=== PATIENT | male | born 1965 | race Caucasian/White ===

== ENCOUNTER 2017-12-06 14:06 | Emergency (ER) | payer OTHER, SELFPAY ==
[2017-12-06 14:12] VITALS: BP 139/75; PULSE 84; RESP 16; TEMP 36.6; O2SAT 95
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
[2017-12-06] MEDS: Ibuprofen 800 MG TAB PO (14:35)
[2017-12-06 15:38] VITALS: BP 123/84; PULSE 72; RESP 16; O2SAT 95
[2017-12-06 15:56] VITALS: BP 123/84; PULSE 72; RESP 16; TEMP 36.6; O2SAT 95
== END 2017-12-06 15:55 | disposition home or self-care (01) ==
PROVIDERS: Emergency Provider Nurse Practitioner Family; PCP Nurse Practitioner Family
DX: S16.1XXA Strain of muscle, fascia and tendon at neck level, initial encounter (principal); S39.012A Strain of muscle, fascia and tendon of lower back, initial encounter; V43.52XA Car driver injured in collision with other type car in traffic accident, initial encounter; Z04.1 Encounter for examination and observation following transport accident; I10 Essential (primary) hypertension
CPT/HCPCS: 99284; 72040; 72072

== ENCOUNTER 2018-02-26 10:52 | Day surgery (SDC) | payer OTHER, SELFPAY ==
[2018-02-26 11:10] VITALS: BP 150/102; PULSE 87; RESP 18; TEMP 36.4; O2SAT 96
[2018-02-26] MEDS: Lactated Ringers 1,000 ML 30 ML IV (11:11)
--- NOTE | 2018-02-26 14:13 | HPE_ITS ---
Date of service: 02/26/18 Time of Service: 14:04 Assessment and Plan (1) H/O adenomatous polyp of colon: Current visit: Yes Status: Acute Reviewed the colonoscopy procedure with Mr. Agudelo, and discussed the risks of the procedure with him. All his questions were answered to his satisfaction. Consent was obtained to proceed with colonoscopy. History of Present Illness Chief Complaint: Personal history of colon polyps Narrative: 52-year-old male presents for colorectal cancer screening with personal history of colon polyps. He has been asymptomatic since his last colonoscopy in 2014. His last colonoscopy was positive for a tubular adenoma. He has no family history of colorectal cancer. Review of Systems Constitutional Denies fatigue, Denies fever(s), Denies malaise, Denies night sweats, Denies weakness and Denies weight loss Eyes Denies blurry vision, Denies diplopia and Reports loss of vision ENT Denies dysphagia, Denies vertigo, Denies dizziness, Denies hoarseness, Denies epistaxis, Denies tinnitus and Denies sore throat Cardiovascular Denies chest pain, Denies irregular heart rhythm, Denies lightheadedness, Denies radiating jaw, neck or arm pain and Denies dyspnea on exertion Respiratory Denies chest congestion, Denies cough, Denies dyspnea on exertion, Denies stridor and Denies wheezing Gastrointestinal Denies abdominal pain, Denies melena, Denies constipation, Denies dysphagia, Denies early satiety, Denies nausea and Denies vomiting Neurologic Denies vertigo, Denies dizziness, Reports loss of vision and Denies weakness Endocrine Denies fatigue Allergic/Immunologic Denies wheezing PFSH Social History Smoking/Tobacco Use Status: Current every day alcohol intake: current alcohol intake frequency: 3 or more drinks per day Alcohol type: beer substance use type: does not use Meds Home Medications Medication Instructions Recorded Confirmed Type esomeprazole magnesium [Nexium 20 mg PO DAILY 05/11/14 02/26/18 History 24HR] [id number] serr 1 ea PO DAILY 05/11/14 02/26/18 History [Osteo Bi-Flex (5-Loxin)] multivit,mins no.21-folic acid 1 mg PO DAILY 05/11/14 02/26/18 History [Supervite (EC)] aspirin 81 mg PO DAILY tab-cap 05/27/14 02/26/18 History coenzyme Q10 [Co Q-10] 10 mg PO DAILY 05/23/16 02/26/18 History omega-3 fatty acids-fish oil 2 ea PO DAILY 05/23/16 02/26/18 History biotin 800 mcg PO DAILY 06/27/16 02/26/18 History hydrochlorothiazide 25 mg PO DAILY #90 tab-cap 03/20/17 02/26/18 Rx lisinopril 10 mg PO DAILY #90 tab-cap 06/28/17 02/26/18 Rx Panax, Ecuadorean Ginsg/B12/Royl 1 ea PO DAILY 10/11/17 02/26/18 History [Ginseng Complex Capsule] cyclobenzaprine 10 mg tablet 10 mg PO TID PRN #20 tab 12/16/17 02/26/18 Rx ibuprofen 600 mg tablet 600 mg PO TID PRN #20 tab 12/16/17 02/26/18 Rx atorvastatin 40 mg tablet 40 mg PO DAILY #90 tab-cap 01/06/18 02/26/18 Rx potassium 99 mg PO HS 02/21/18 02/26/18 History Allergies Allergy/AdvReac Type Severity Reaction Status Date / Time poison pranav extract Allergy Unknown Unverified 02/26/18 11:04 Yellow jacket Allergy Unknown Sometimes Uncoded 02/26/18 11:04 bothers and sometimes doesn't Exam Const General: cooperative and comfortable Nutritional Appearance: average body habitus Orientation: alert, awake and oriented x3 HENMT Head: normal to inspection Ears: hearing grossly normal bilaterally General nose exam: external nose normal Face and sinus: normal facial exam Mouth: oral mucosae normal Eyes General: appearance normal, both eyes and all related structures Periorbital: periorbital findings normal Conjunctivae: conjunctivae normal Sclera: sclerae normal Pupils: PERRL EOM: EOM intact bilaterally Neck Neck: normal visual inspection, trachea midline and supple Chest Chest: normal inspection of the chest Resp Effort & Inspection: normal respiratory effort and no audible wheezes Auscultation: clear to auscultation bilaterally Cardio Rate: regular rate Rhythm: regular rhythm Heart Sounds: S1 normal and S2 normal GI Inspection: normal to inspection Palpation: soft, no hernias and nontender Skin General skin exam: no rashes or lesions noted Neuro General: moves all extremities, no focal motor deficits and CN's II-XI intact bilaterally Extrem General: normal to inspection, full ROM, normal capillary refill and no clubbing , cyanosis or edema Psych Appearance: grossly normal Affect: normal affect Attitude: cooperative Judgment: judgment good Results Last Vital Signs Temp 36.4 C L 02/26/18 11:10 Pulse 87 02/26/18 11:10 Resp 18 02/26/18 11:10 BP 150/102 H 02/26/18 11:10 Pulse Ox 96 02/26/18 11:10
--- NOTE | 2018-02-26 15:01 | W.COLOREPORT ---
Date of service: 02/26/18 Time of Service: 14:00 Colonoscopy Report Date of procedure: 02/26/18 Pre-op diagnosis general: Personal history of colon polyps Post-op diagnosis procedure note: other (Normal Colon to the cecum) Procedure: Colonoscopy to the Cecum Surgeon: Nawaf Mariscal Anesthesia proc note operative: MAC (Doug Redding REAMING MACHINE OPERATOR FOR PLASTIC: ASA 2 Mallampati class II) Estimated blood loss (mL): 0 Pathology: none sent Complications: None Disposition: same day Indications: 52-year-old gentleman presenting for colorectal cancer screening with a personal history of colon polyps. He has been asymptomatic since last colonoscopy, which she was found to have a tubular adenoma. He has no family history colorectal cancer. The procedure has been reviewed with him, and the risks of the procedure of been discussed. All his questions been answered to his satisfaction. Consents been obtained to proceed with colonoscopy. Prep: Miralax/Dulcolax (Prep quality good) Findings: In examining the colon from cecum to anus, no abnormalities were noted. Procedure Description: The patient was seen in the day surgery waiting area. His identification was confirmed, and procedure checked. He was then brought to the procedure room. Monitoring for telemetry, blood pressure, oxygen saturation, and end tidal CO2 monitoring were applied. An appropriate time out was performed to confirm, identification, allergies, medication, procedure, was performed. Sedation was titrated for affect by the REAMING MACHINE OPERATOR FOR PLASTIC; Once adequate sedation was achieved, I performed a inspection of the external perineum, and a digitial rectal examination. No significant external abnormalities were noted. On digital rectal examination, there was no blood, no masses, good rectal tone, and a normal prostate. I advanced the colonoscope from the anus to the cecum under direct visualization. The cecum was identified by the ileal-cecal valve, and the appendiceal orifice. The scope was then withdrawn in circumferential manner from the cecum to the rectum. No abnormalites were noted in the colon. The scope was then withdrawn into the rectum, and retroflexed. No abnormalities were noted of the rectum or anorectal junction. The scope was then withdrawn, terminating the procedure. There were no complications during the procedure, and the patient tolerated the procedure well. He was returned to the day surgery recovery area in good condition. Plan: Will continue with routine screening for colorectal cancer according to current consensus guidelines, which is currently 10 years.
[2018-02-26 15:05] VITALS: BP 139/95; PULSE 65; RESP 20; TEMP 37; O2SAT 96
--- NOTE | 2018-02-26 15:05 | COLE_ITS ---
Date of service: 02/26/18 Time of Service: 14:00 Colonoscopy Report Date of procedure: 02/26/18 Pre-op diagnosis general: Personal history of colon polyps Post-op diagnosis procedure note: other (Normal Colon to the cecum) Procedure: Colonoscopy to the Cecum Surgeon: Nawaf Mariscal Anesthesia proc note operative: MAC (Doug Redding REPLANTING MACHINE CREWMAN: ASA 2 Mallampati class II) Estimated blood loss (mL): 0 Pathology: none sent Complications: None Disposition: same day Indications: 52-year-old gentleman presenting for colorectal cancer screening with a personal history of colon polyps. He has been asymptomatic since last colonoscopy, which she was found to have a tubular adenoma. He has no family history colorectal cancer. The procedure has been reviewed with him, and the risks of the procedure of been discussed. All his questions been answered to his satisfaction. Consents been obtained to proceed with colonoscopy. Prep: Miralax/Dulcolax (Prep quality good) Findings: In examining the colon from cecum to anus, no abnormalities were noted. Procedure Description: The patient was seen in the day surgery waiting area. His identification was confirmed, and procedure checked. He was then brought to the procedure room. Monitoring for telemetry, blood pressure, oxygen saturation, and end tidal CO2 monitoring were applied. An appropriate time out was performed to confirm, identification, allergies, medication, procedure, was performed. Sedation was titrated for affect by the REPLANTING MACHINE CREWMAN; Once adequate sedation was achieved, I performed a inspection of the external perineum, and a digitial rectal examination. No significant external abnormalities were noted. On digital rectal examination, there was no blood, no masses, good rectal tone, and a normal prostate. I advanced the colonoscope from the anus to the cecum under direct visualization. The cecum was identified by the ileal-cecal valve, and the appendiceal orifice. The scope was then withdrawn in circumferential manner from the cecum to the rectum. No abnormalites were noted in the colon. The scope was then withdrawn into the rectum, and retroflexed. No abnormalities were noted of the rectum or anorectal junction. The scope was then withdrawn, terminating the procedure. There were no complications during the procedure, and the patient tolerated the procedure well. He was returned to the day surgery recovery area in good condition. Plan: Will continue with routine screening for colorectal cancer according to current consensus guidelines, which is currently 10 years.
--- NOTE | 2018-02-26 16:37 | W.PM.DSUDISC ---
Discharge Plan Disposition Patient Disposition: HOME Condition: Good Discharge Details Reason For Visit: SCREENING Attending Provider: Nawaf Mariscal Primary Care Provider: Wendy Dias Home Meds and New Rx's Prescriptions: Continue cyclobenzaprine 10 mg tablet 10 mg PO TID PRN (Reason: muscle spasm) Qty: 20 RF: 0 ibuprofen [IBU] 600 mg tablet 600 mg PO TID PRN (Reason: pain) Qty: 20 RF: 0 multivit,mins no.21-folic acid [Supervite (EC)] 1 MG tablet,delayed release (DR/EC) 1 mg PO DAILY RF: 0 hmbojvwltqk-A9-Gemdltsyh serr [Osteo Bi-Flex (5-Loxin)] 1 EACH tablet 1 ea PO DAILY RF: 0 esomeprazole magnesium [Nexium 24HR] 20 MG capsule,delayed release(DR/EC) 20 mg PO DAILY RF: 0 aspirin 81 MG tablet,delayed release (DR/EC) 81 mg PO DAILY RF: 0 coenzyme Q10 [Co Q-10] 10 MG capsule 10 mg PO DAILY RF: 0 omega-3 fatty acids-fish oil 1 EACH capsule 2 ea PO DAILY RF: 0 biotin 800 MCG tablet 800 mcg PO DAILY RF: 0 hydrochlorothiazide 25 MG tablet 25 mg PO DAILY Qty: 90 RF: 3 lisinopril 10 MG tablet 10 mg PO DAILY Qty: 90 RF: 3 Panax, English Ginsg/B12/Royl [Ginseng Complex Capsule] 1 EACH capsule 1 ea PO DAILY RF: 0 atorvastatin 40 mg tablet 40 mg PO DAILY Qty: 90 RF: 3 potassium 99 mg Tablet 99 mg PO HS RF: 0 Discharge Instructions Instructions: Colonoscopy (DC) Stand Alone Forms: Colonoscopy Post Instructions, Sherin Barbour (DSU) Activity:: Activity as Tolerated Diet:: As Tolerated Discharge Orders Discharge Orders: Discharge Order (Routine); Ordered 02/26/18 Ordered By: Nawaf Mariscal Discharge Data Discharge Date/Time-TO BE ENTERED AT DEPARTURE: 02/26/18 15:20 DS: Diagnosis Discharge Diagnosis (1) H/O adenomatous polyp of colon: Status: Acute Asessment and Plan: Colonoscopy performed: Colonoscopy Report Date of procedure: 02/26/18 Pre-op diagnosis general: Personal history of colon polyps Post-op diagnosis procedure note: other (Normal Colon to the cecum) Procedure: Colonoscopy to the Cecum Surgeon: Nawaf Mariscal Anesthesia proc note operative: MAC (Doug Redding BUSINESS INTEGRATION ANALYST: ASA 2 Mallampati class II) Estimated blood loss (mL): 0 Pathology: none sent Complications: None Disposition: same day Indications: 52-year-old gentleman presenting for colorectal cancer screening with a personal history of colon polyps. He has been asymptomatic since last colonoscopy, which she was found to have a tubular adenoma. He has no family history colorectal cancer. The procedure has been reviewed with him, and the risks of the procedure of been discussed. All his questions been answered to his satisfaction. Consents been obtained to proceed with colonoscopy. Prep: Miralax/Dulcolax (Prep quality good) Findings: In examining the colon from cecum to anus, no abnormalities were noted. Procedure Description: The patient was seen in the day surgery waiting area. His identification was confirmed, and procedure checked. He was then brought to the procedure room. Monitoring for telemetry, blood pressure, oxygen saturation, and end tidal CO2 monitoring were applied. An appropriate time out was performed to confirm, identification, allergies, medication, procedure, was performed. Sedation was titrated for affect by the BUSINESS INTEGRATION ANALYST; Once adequate sedation was achieved, I performed a inspection of the external perineum, and a digitial rectal examination. No significant external abnormalities were noted. On digital rectal examination, there was no blood, no masses, good rectal tone, and a normal prostate. I advanced the colonoscope from the anus to the cecum under direct visualization. The cecum was identified by the ileal-cecal valve, and the appendiceal orifice. The scope was then withdrawn in circumferential manner from the cecum to the rectum. No abnormalites were noted in the colon. The scope was then withdrawn into the rectum, and retroflexed. No abnormalities were noted of the rectum or anorectal junction. The scope was then withdrawn, terminating the procedure. There were no complications during the procedure, and the patient tolerated the procedure well. He was returned to the day surgery recovery area in good condition. Plan: Will continue with routine screening for colorectal cancer according to current consensus guidelines, which is currently 10 years.
--- NOTE | 2018-02-26 16:41 | PDOC.DSDIS_ITS ---
Discharge Plan Disposition Patient Disposition: HOME Condition: Good Discharge Details Reason For Visit: SCREENING Attending Provider: Nawaf Mariscal Primary Care Provider: Wendy Dias Home Meds and New Rx's Prescriptions: Continue cyclobenzaprine 10 mg tablet 10 mg PO TID PRN (Reason: muscle spasm) Qty: 20 RF: 0 ibuprofen [IBU] 600 mg tablet 600 mg PO TID PRN (Reason: pain) Qty: 20 RF: 0 multivit,mins no.21-folic acid [Supervite (EC)] 1 MG tablet,delayed release ( DR/EC) 1 mg PO DAILY RF: 0 fsuwezuwosn-V1-Jmszcqlkh serr [Osteo Bi-Flex (5-Loxin)] 1 EACH tablet 1 ea PO DAILY RF: 0 esomeprazole magnesium [Nexium 24HR] 20 MG capsule,delayed release(DR/EC) 20 mg PO DAILY RF: 0 aspirin 81 MG tablet,delayed release (DR/EC) 81 mg PO DAILY RF: 0 coenzyme Q10 [Co Q-10] 10 MG capsule 10 mg PO DAILY RF: 0 omega-3 fatty acids-fish oil 1 EACH capsule 2 ea PO DAILY RF: 0 biotin 800 MCG tablet 800 mcg PO DAILY RF: 0 hydrochlorothiazide 25 MG tablet 25 mg PO DAILY Qty: 90 RF: 3 lisinopril 10 MG tablet 10 mg PO DAILY Qty: 90 RF: 3 Panax, [place]ag[place] Ginsg/B12/Royl [Ginseng Complex Capsule] 1 EACH capsule 1 ea PO DAILY RF: 0 atorvastatin 40 mg tablet 40 mg PO DAILY Qty: 90 RF: 3 potassium 99 mg Tablet 99 mg PO HS RF: 0 Discharge Instructions Instructions: Colonoscopy (DC) Stand Alone Forms: Colonoscopy Post Instructions, Sherin Barbour ([facility]) Activity:: Activity as Tolerated Diet:: As Tolerated Discharge Orders Discharge Orders: Discharge Order (Routine); Ordered 02/26/18 Ordered By: Nawaf Mariscal Discharge Data Discharge Date/Time-TO BE ENTERED AT DEPARTURE: 02/26/18 15:20 DS: Diagnosis Discharge Diagnosis (1) H/O adenomatous polyp of colon: Status: Acute Asessment and Plan: Colonoscopy performed: Colonoscopy Report Date of procedure: 02/26/18 Pre-op diagnosis general: Personal history of colon polyps Post-op diagnosis procedure note: other (Normal Colon to the cecum) Procedure: Colonoscopy to the Cecum Surgeon: Nawaf Mariscal Anesthesia proc note operative: MAC (Doug Redding APPLE PICKER: ASA 2 Mallampati class II) Estimated blood loss (mL): 0 Pathology: none sent Complications: None Disposition: same day Indications: 52-year-old gentleman presenting for colorectal cancer screening with a personal history of colon polyps. He has been asymptomatic since last colonoscopy, which she was found to have a tubular adenoma. He has no family history colorectal cancer. The procedure has been reviewed with him, and the risks of the procedure of been discussed. All his questions been answered to his satisfaction. Consents been obtained to proceed with colonoscopy. Prep: Miralax/Dulcolax (Prep quality good) Findings: In examining the colon from cecum to anus, no abnormalities were noted. Procedure Description: The patient was seen in the day surgery waiting area. His identification was confirmed, and procedure checked. He was then brought to the procedure room. Monitoring for telemetry, blood pressure, oxygen saturation, and end tidal CO2 monitoring were applied. An appropriate time out was performed to confirm, identification, allergies, medication, procedure, was performed. Sedation was titrated for affect by the APPLE PICKER; Once adequate sedation was achieved, I performed a inspection of the external perineum, and a digitial rectal examination. No significant external abnormalities were noted. On digital rectal examination, there was no blood, no masses, good rectal tone, and a normal prostate. I advanced the colonoscope from the anus to the cecum under direct visualization. The cecum was identified by the ileal-cecal valve, and the appendiceal orifice. The scope was then withdrawn in circumferential manner from the cecum to the rectum. No abnormalites were noted in the colon. The scope was then withdrawn into the rectum, and retroflexed. No abnormalities were noted of the rectum or anorectal junction. The scope was then withdrawn, terminating the procedure. There were no complications during the procedure, and the patient tolerated the procedure well. He was returned to the day surgery recovery area in good condition. Plan: Will continue with routine screening for colorectal cancer according to current consensus guidelines, which is currently 10 years.
== END 2018-02-26 15:20 | disposition home or self-care (01) ==
PROVIDERS: PCP Nurse Practitioner Family; Visit Provider Surgery
PROC: 0DJD8ZZ Inspection of Lower Intestinal Tract, Via Natural or Artificial Opening Endoscopic (ICD-10-PCS; CPT 45378; principal; 2018-02-26 11:00)
DX: Z12.11 Encounter for screening for malignant neoplasm of colon (principal); Z86.010 Personal history of colon polyps; I10 Essential (primary) hypertension; K21.9 Gastro-esophageal reflux disease without esophagitis; F17.210 Nicotine dependence, cigarettes, uncomplicated
CPT/HCPCS: 45378; NC

== ENCOUNTER 2018-04-14 08:27 | Outpatient (CLI) | payer OTHER, SELFPAY ==
[2018-04-14 09:43] LABS: Hemoglobin A1C 6.2 % (4.5-6.2)
[2018-04-14 10:07] LABS: Anion Gap 10.6 mmol/L (3-11); BUN 15 mg/dL (7-18); CO2 25.4 mmol/L (21.0-32.0); CREATININE 0.79 mg/dL (0.70-1.30); Calcium 9.5 mg/dL (8.5-10.1); Chloride 100 mmol/L (98-107); Cholesterol 199 mg/dL (50-200); Glucose 107 mg/dL (70-100); HDL Cholesterol 47 mg/dL (40-60); LDL CHOLESTEROL 125 mg/dL (<100); Potassium 4.1 mmol/L (3.5-5.1); Sodium 136 mmol/L (136-145); Triglyceride 128 mg/dL (30-150)
== END 2018-04-14 08:47 ==
PROVIDERS: PCP Nurse Practitioner Family; Visit Provider Nurse Practitioner Family
DX: I10 Essential (primary) hypertension (principal); R73.01 Impaired fasting glucose; E78.5 Hyperlipidemia, unspecified
CPT/HCPCS: 36415; 80048; 80061; 83721; 83036

== ENCOUNTER 2018-11-04 00:59 | Outpatient (CLI) | payer OTHER, SELFPAY ==
[2018-11-04 10:20] LABS: Abs Immature Grans 0.02 k/cumm (0.0-0.09); Absolute Basophil Count 0.03 k/cumm (0.0-0.2); Absolute Eosinophil Count 0.44 k/cumm (0.0-0.7); Absolute Lymphocyte Count 2.63 k/cumm (1.2-3.4); Absolute Monocyte Count 0.86 k/cumm (0.11-0.7); Absolute Neutrophil Count 5.52 k/cumm (1.2-6.7); Basophils % 0.3; Eosinophils % 4.6; Immature Grans % 0.2; Lymphocytes % 27.7; Mean Corp. HGB Concentration 34.2 g/dL (32.0-36.0); Mean Corpuscular Hemoglobin 32.9 pg (27.0-33.0); Mean Corpuscular Volume 96.2 fL (80-95); Mean Platelet Volume 10.3 fL (8.0-11.0); Monocytes % 9.1; Neutrophils % 58.1; Platelet Count 232 x1000/uL (130-400); RBC 3.95 m/cumm (4.50-6.00); RBC Distribution Width 12.8 % (11.8-14.1)
--- NOTE | 2018-11-04 10:25 | DI.RAD_ITS ---
SYMPTOM/DIAGNOSIS: RT MIDDLE MCP JOINT SWELLING AND PAIN X MONTHS M25.449, M25.549 RIGHT HAND: 11/04 Three views were obtained. There is some narrowing of the cartilaginous joint spaces of the IP joints. Mild hypertrophic spurring noted at multiple sites. Degenerative changes also noted at the first MCP joint with joint space narrowing subchondral sclerosis and mild marginal osteophyte formation. CONCLUSION: Mild degenerative changes as described above.
[2018-11-04 11:36] LABS: Uric Acid 4.6 mg/dL (3.5-7.2)
== END 2018-11-04 01:19 ==
PROVIDERS: PCP Nurse Practitioner Family; Visit Provider Nurse Practitioner Family
DX: M25.541 Pain in joints of right hand (principal); M25.441 Effusion, right hand; M19.041 Primary osteoarthritis, right hand; M18.11 Unilateral primary osteoarthritis of first carpometacarpal joint, right hand
CPT/HCPCS: 36415; 73130; 84550; 85025

== ENCOUNTER 2019-12-22 01:15 | Outpatient (CLI) | payer OTHER, SELFPAY ==
[2019-12-22 09:41] LABS: Abs Immature Grans 0.03 10^3/uL (0.0-0.06); Absolute Basophil Count 0.02 10^3/uL (0.0-0.2); Absolute Eosinophil Count 0.29 10^3/uL (0.0-0.7); Absolute Lymphocyte Count 2.27 10^3/uL (1.2-3.4); Absolute Monocyte Count 0.73 10^3/uL (0.1-0.8); Absolute Neutrophil Count 3.25 10^3/uL (1.2-6.7); Basophils % 0.3; Eosinophils % 4.4; HCT 39.8 % (40.0-50.0); HGB 13.7 g/dL (13.5-17.5); Immature Grans % 0.5; Lymphocytes % 34.4; MCH 32.2 pg (27.0-33.0); MCHC 34.4 % (32.0-36.0); MCV 93.4 fL (80-95); MPV 10.4 fL (8.0-11.0); Monocytes % 11.1; Neutrophils % 49.3; Nucleated RBC 0 %; Platelet Count 237 10^3/uL (130-400); RBC 4.26 10^6/uL (4.36-5.78); RDW 11.9 % (11.8-14.1); RDW-SD 40.9 fL; WBC 6.59 10^3/uL (4.4-10.8)
[2019-12-22 10:10] LABS: Hemoglobin A1C 5.9 % (<5.7)
[2019-12-22 13:44] LABS: Anion Gap 9.7 mmol/L (3-11); BUN 17 mg/dL (7-18); CO2 26.3 mmol/L (21.0-32.0); CREATININE 0.71 mg/dL (0.70-1.30); Calcium 9.3 mg/dL (8.5-10.1); Calculated LDL 116 mg/dL (<100); Chloride 102 mmol/L (98-107); Cholesterol 210 mg/dL (<200); Glucose 110 mg/dL (74-106); HDL Cholesterol 58 mg/dL (40-60); Potassium 4.1 mmol/L (3.5-5.1); Sodium 138 mmol/L (136-145); Triglyceride 181 mg/dL (<150)
== END 2019-12-22 01:35 ==
PROVIDERS: PCP Nurse Practitioner Family; Visit Provider Nurse Practitioner Family
DX: I10 Essential (primary) hypertension (principal); R73.01 Impaired fasting glucose; E78.5 Hyperlipidemia, unspecified; D64.9 Anemia, unspecified
CPT/HCPCS: 36415; 80048; 80061; 83036; 85025

== ENCOUNTER 2020-12-07 00:34 | Outpatient (CLI) | payer OTHER, SELFPAY ==
[2020-12-07 09:44] LABS: HCT 39.3 % (40.0-50.0); HGB 13.6 g/dL (13.5-17.5); MCH 32.8 pg (27.0-33.0); MCHC 34.6 % (32.0-36.0); MCV 94.7 fL (80-95); MPV 10.9 fL (8.0-11.0); Platelet Count 244 10^3/uL (130-400); RBC 4.15 10^6/uL (4.36-5.78); RDW 12.4 % (11.8-14.1); WBC 9.79 10^3/uL (4.4-10.8)
[2020-12-07 10:48] LABS: ALT 36 U/L (16-63); AST 20 U/L (15-37); Alkaline Phosphatase 66 U/L (46-116); Anion Gap 9.7 mmol/L (3-11); BUN 15 mg/dL (7-18); Bilirubin, Total 0.5 mg/dL (0.2-1.0); CO2 28.3 mmol/L (21.0-32.0); CREATININE 0.7 mg/dL (0.70-1.30); Calcium 9.3 mg/dL (8.5-10.1); Calculated LDL 143 mg/dL (<100); Chloride 101 mmol/L (98-107); Cholesterol 215 mg/dL (<200); Glucose 100 mg/dL (74-106); HDL Cholesterol 53 mg/dL (40-60); Potassium 4.3 mmol/L (3.5-5.1); Sodium 139 mmol/L (136-145); Total Protein 7.2 g/dL (6.4-8.2); Triglyceride 95 mg/dL (<150)
== END 2020-12-07 00:35 | disposition home or self-care (01) ==
PROVIDERS: PCP Nurse Practitioner Family; Visit Provider Nurse Practitioner Family
DX: I10 Essential (primary) hypertension (principal); E78.5 Hyperlipidemia, unspecified; R73.01 Impaired fasting glucose; Z51.81 Encounter for therapeutic drug level monitoring
CPT/HCPCS: 36415; 80053; 80061; 85027; 83036

== ENCOUNTER 2021-09-20 15:32 | Outpatient (REF) | payer OTHER, SELFPAY ==
--- NOTE | 2021-09-20 15:30 | PAPNONF_PTH ---
PATIENT: Duarte Agudelo LOC: N U#:[id number] AGE/SX: 56/M ROOM: RE09/20/[address]: Yulissa Elam APRN : 1965 BED: DIS: 09/20/2021 SPEC #: [id number] RECD: 09/21/21 09:36 STATUS: LUZ MARIA REQ #: [id number] DEMARIO: 09/20/21 15:[address]: Yulissa Elam DEPT: [facility] Cytology RECD BY: Denise Ellis ENTERED: 09/21/21 09:38 SP TYPE: PAPRHONDAF MARIBELL DR: Wendy Dias APRN Tissues: 1 - BODY FLUID CYTO(SPUTUM/URINE)[facility] Procedures: BODY FLUID CYTO(URINE/SPUTUM) Comments: [id number] (TOTAL VOLUME = 60 cc) (60 CC CYTOLYT ADDED, 120 CC SPECIMEN IN TWO CONTAINERS)
== END 2021-09-20 15:33 | disposition home or self-care (01) ==
LOC: LBN 15:32
PROVIDERS: PCP Nurse Practitioner Family; Visit Provider Nurse Practitioner
DX: R31.9 Hematuria, unspecified (principal)
CPT/HCPCS: 87086; 88104

== ENCOUNTER 2021-10-05 15:38 | Outpatient (REF) | payer OTHER, SELFPAY ==
[2021-10-05 16:12] LABS: Hemoglobin A1C 5.8 % (<5.7)
[2021-10-05 16:18] LABS: ALT 32 U/L (16-63); AST 20 U/L (15-37); Albumin 4.1 g/dL (3.4-5.0); Alkaline Phosphatase 67 U/L (46-116); Anion Gap 10.5 mmol/L (3-11); BUN 18 mg/dL (7-18); Bilirubin, Total 0.5 mg/dL (0.2-1.0); CO2 26.5 mmol/L (21.0-32.0); CREATININE 0.7 mg/dL (0.70-1.30); Calcium 9.2 mg/dL (8.5-10.1); Calculated LDL 139 mg/dL (<100); Chloride 100 mmol/L (98-107); Cholesterol 209 mg/dL (<200); Glucose 105 mg/dL (74-106); HDL Cholesterol 55 mg/dL (40-60); Potassium 3.8 mmol/L (3.5-5.1); Sodium 137 mmol/L (136-145); Triglyceride 76 mg/dL (<150)
== END 2021-10-05 15:39 | disposition home or self-care (01) ==
LOC: LBN 15:38
PROVIDERS: PCP Nurse Practitioner Family; Visit Provider Nurse Practitioner
DX: I10 Essential (primary) hypertension (principal); R73.01 Impaired fasting glucose; R31.9 Hematuria, unspecified
CPT/HCPCS: 80053; 80061; 83036; 87086

== ENCOUNTER → 2021-10-23 02:55 | Outpatient (CLI) | payer OTHER, SELFPAY ==
--- NOTE | 2021-10-23 07:15 | DI.CT_ITS ---
Exam(s) CT ABDOMEN PELVIS WO/W EXAM: CT ABDOMEN PELVIS WO/W CLINICAL HISTORY: recurrent hematuria, intermittent flank pain,N20.9. TECHNIQUE: Imaging Protocol: Axial computed tomography images with coronal and sagittal reformatted images were created and reviewed CONTRAST MATERIAL: Intravenous: Omnipaque 100cc Oral: None COMPARISON: No exams were available for comparison FINDINGS: VISUALIZED LUNG BASES: No nodules nor pleural effusions evident. ABDOMEN: There is no ascites. LIVER: Multiple tiny hepatic cysts noted all less than 1 cm. No dilatation of intrahepatic ducts. GALLBLADDER/BILIARY: No obvious gallbladder pathology. CBD is not dilated. PANCREAS: No evidence of pancreatic mass nor dilatation of the pancreatic duct. SPLEEN: Spleen is not enlarged. No obvious intrasplenic lesions. Splenic and portal veins are paten t. ADRENALS: There are no significant adrenal masses. KIDNEYS:There is a benign 2 x 1.4 cm cyst in the right kidney and a smaller cyst in the left kidney. No solid renal lesions. Tiny calcification noted in the left kidney which might vascular.. ABDOMINAL AORTA: There is a fusiform infrarenal abdominal aortic aneurysm. Maximum diameter is 2.8 c m. Diameter of the common iliac arteries is upper normal. LYMPH NODES:There is no retroperitoneal nor paraaortic adenopathy. ABDOMINAL WALL: Fat only containing anterior abdominal hernia. There are no inguinal hernias. GI: There is no evidence of bowel obstruction, free air, nor abscess. PELVIS: GI: No evidence of appendicitis.Sigmoid diverticulosis. No evidence of obvious acute diverticulitis. LYMPH NODES: There is no intrapelvic nor inguinal adenopathy. REPRODUCTIVE: Prostate gland size upper normal. URINARY BLADDER: There is an ominous mass in the right side of the urinary bladder which measures 3 x 3 cm and contains some calcification. Highly suspicious for bladder malignancy. This does not obst ruct ipsilateral right the yazmin vesicle junction. OSSEOUS: No significant osseous lesions. IMPRESSION: 1. The main finding here is in the right side of the urinary bladder where there is a 3 centimeter ma ss which is highly suspicious for malignancy. Urology consultation for cystoscopy and biopsy recomme nded 2. There does not appear be obstruction of the urinary tracts at this time. 3. Benign solitary cyst in each kidney, largest measuring 1.4 cm. No solid renal masses. 4. Fusiform infrarenal abdominal aortic aneurysm with maximum diameter 2.8 cm. RADIATION DOSE DELIVERED: 2,366.12mGy.cm Total DLP DATA REPOSITORY: All CT scans at this facility are submitted to the National Radiology Data Registry (NRDR) Dose Index Registry (DIR) with the [employer] (ACR). RADIATION OPTIMIZATION: All CT scans at this facility use at least one of these dose optimization te chniques: automated exposure control; mA and/or kV adjustment per patient size (includes targeted exa ms where dose is matched to clinical indication); or iterative reconstruction.
[2021-10-23] MEDS: Omnipaque 350 MG/ML 100 ML BTL IJ (15:01)
== END ==
PROVIDERS: PCP Nurse Practitioner Family; Visit Provider Nurse Practitioner
DX: F17.200 Nicotine dependence, unspecified, uncomplicated (principal); N02.9 Recurrent and persistent hematuria with unspecified morphologic changes; R10.9 Unspecified abdominal pain; N32.89 Other specified disorders of bladder
CPT/HCPCS: 74178; J3490

== ENCOUNTER 2021-11-10 18:51 | Outpatient (REF) | payer OTHER, SELFPAY ==
[2021-11-10 16:40] LABS: Source Nasal/Nares
[2021-11-10 21:54] LABS: COVID-19 PCR Negative (Negative)
== END 2021-11-10 18:52 | disposition home or self-care (01) ==
LOC: LBN 18:51
PROVIDERS: PCP Nurse Practitioner Family; Visit Provider Urology
DX: Z20.822 Contact with and (suspected) exposure to COVID-19 (principal); Z01.818 Encounter for other preprocedural examination
CPT/HCPCS: 87635

== ENCOUNTER 2021-11-13 06:10 | Day surgery (SDC) | payer OTHER, SELFPAY ==
[2021-11-13] VITALS (9 sets, daily range): BP systolic 97–144; BP diastolic 62–92; PULSE 55–565; RESP 14–18; TEMP 36.4–37; O2SAT 90–97; BMI 26.6
[2021-11-13] MEDS: Lactated Ringers 1,000 ML 80 ML IV (06:45)
--- NOTE | 2021-11-13 06:51 | HPE_ITS ---
Date of service: 11/13/21 Time of Service: 06:51 Assessment and Plan Assessment and plan (1) Bladder mass: Status: Acute Assessment and plan: We will plan on cystoscopy with TURBT. His followup plan will depend on pathology. We have reserved a bed on MedSurg just in case he needs to stay overnight for continuous bladder irrigation. History of Present Illness History of Present Illness Chief Complaint: Bladder mass Narrative: Duarte is a 56-year-old male referred to urology by his PCP for concerns of gross hematuria.? Patient reports that he had 2 episodes of painless gross hematuria that were both short lasted.? The first occurred at the start of September of this year.? He reports feeling like BB's were being voided out with blood. He was seen in his PCPs office and it was thought that there was a urinary tract infection.? He was treated with ciprofloxacin.? Hematuria resolved.? He notes at that time he was having no UTI symptoms.? He also states that he was told his urine culture was negative. He reports mid September of this year was the second bout of painless gross hematuria.? Again there was no clots.? There was also no concern that the gross hematuria was causing retention.? He then had discussion with his primary care office about moving forth with imaging.? He had a CT with and without contrast of the abdominal pelvic area done.? He was informed briefly of the results that there is an area of concern to the bladder but nothing more. Patient notes that this is the first time he is ever had episodes of gross hematuria in his life.? He has no history of pelvic radiation or trauma.? He has an extensive smoker.? He also reports being heavy alcohol intake.? There is no known family history of urologic cancers or concerns.? He notes that he used to work for the [employer]. Review of Systems Narrative: No fevers or chills Decreased visual left eye. No dysphasia No diabetes or thyroid No shortness of breath, cough or hemoptysis No chest pain or palpitations Hx GERD. No hepatitis, ulcers, jaundice, diarrhea or constipation No seizures, strokes or peripheral neuropathy No bleeding disorders or anemia No gout PFSH All Active Problems Bladder mass (Acute) Erectile dysfunction (Acute) Heavy alcohol use (Acute) Dermatitis (Chronic) 11/2017 [facility] [place] Derm consult Tobacco use disorder (Chronic) IFG (impaired fasting glucose) (Chronic 12/28/16) Hyperlipidemia (Chronic 03/02/14) 03/2018 labs: GERD (gastroesophageal reflux disease) (Chronic 03/02/14) Essential hypertension (Chronic 02/02/15) Body mass index (BMI) exceeds 25 (Chronic 05/05/15) Blindness of left eye (Chronic 03/02/14) Medical History Tendonitis of wrist, left (11/05/14) Tubular adenoma of colon (06/18/14) 2 polyps Surgical History Colonoscopy - MAC (02/26/18) Dr Mariscal, no abnormalities, repeat in 10 years. Family History Mother Aortic aneurysm Father No problems noted. Sister No problems noted. Sister No problems noted. Brother No problems noted. Brother No problems noted. Brother No problems noted. Social History Smoking/Tobacco Use Status: Current every day Tobacco Type: cigarettes Smoking packs per day: 1 Smoking cigarettes per day: 20.0 Years smoked: 40 Smoking pack- years: 40.00 Tobacco: How many years used: 40 Quit status: has quit before Smoking risk assessment performed?: Yes Alcohol Intake: current Alcohol Intake frequency: 3 or more drinks per day Alcohol type: beer Drug use: Never Substance use type: does not use Caregiver/Support person: No Housing: house Number of Children: 1 Communication Needs: None Do you need help understanding health information?: Rarely current occupation: Railroad Pets and animals: No Sexually active: Yes Do you think of yourself as: straight/heterosexual Current gender identity: male What is your relationship status?: never How often do you talk on the phone with friends or family?: once per week How often do you get together with friends or relatives?: three or more times per week How often do you attend lutheran or holiness services?: decline to answer Do you belong to any clubs or organized social groups?: no Panel score (0-1 are the most socially isolated patients): 1 What type of physical activity do you participate in: regular exercise and other Details: Active with work on [employer] Frequency: daily Gricelda/Roman Catholic: None Special gricelda needs: No Seatbelt use: always Helmet use: Yes Drive intox or ride w/intox dedicated truck driver: No Water heater temp set <120 deg: Yes Working smoke detector in home: No Fire extinguisher in home: Yes Carbon monox detector in home: No Do you feel safe at home: Yes Additional Social history: lives alone Meds Allergies and Home Medications Allergies Allergy/AdvReac Type Severity Reaction Status Date / Time poison pranav extract Allergy Unknown Verified 11/10/21 09:10 Yellow jacket Allergy Unknown Sometimes Uncoded 11/10/21 09:10 bothers and sometimes doesn't Home Medications Medication Instructions Recorded Confirmed Type esomeprazole magnesium 22.3 mg 20 mg PO HS 05/11/14 11/13/21 History capsule,delayed release (Nexium 24HR) glucosamine [id number]-Ahubibmin 1 ea PO DAILY 05/11/14 11/10/21 History sabra 1,500 mg-400 unit-100 mg tablet (Osteo Bi-Flex (5-Loxin)) multivit with minerals no.21-folic 1 mg PO DAILY 05/11/14 11/10/21 History acid 1 mg tablet,delayed release (Supervite (EC)) aspirin 81 mg tablet,delayed 81 mg PO DAILY 05/27/14 11/10/21 History release coenzyme Q10 10 mg capsule (Co 10 mg PO DAILY 05/23/16 11/10/21 History Q-10) omega-3 fatty acids-fish oil 300 2 ea PO DAILY 05/23/16 11/10/21 History mg-1,000 mg capsule biotin 800 mcg tablet 800 mcg PO DAILY 06/27/16 11/10/21 History Panax, [place] Ginsg/B12/Royl 1 ea PO DAILY 10/11/17 11/10/21 History [Ginseng Complex Capsule] cyclobenzaprine 10 mg tablet 10 mg PO TID PRN muscle spasm #20 12/16/17 11/10/21 Rx tabs betamethasone dipropionate 0.05 % 1 applic topical BID PRN 04/18/18 11/10/21 Rx topical cream dermatitis #15 grams ibuprofen 600 mg tablet (IBU) 600 mg PO TID PRN pain #90 tab-caps 10/29/18 11/10/21 Rx atorvastatin 40 mg tablet 40 mg PO DAILY #90 tab-caps 12/19/20 11/13/21 Rx hydrochlorothiazide 25 mg tablet 25 mg PO DAILY #90 tab-caps 03/13/21 11/13/21 Rx lisinopril 10 mg tablet See Rx Instructions .Route 06/07/21 11/13/21 Rx .COMPLEX #90 tabs sildenafil 100 mg tablet See Rx Instructions .Route 06/09/21 11/13/21 Rx .COMPLEX #10 tabs Exam Const General: cooperative and comfortable Neck Neck: supple Resp Effort & Inspection: normal respiratory effort Auscultation: clear to auscultation bilaterally Cardio Rate: regular rate Rhythm: regular rhythm GI Palpation: soft and no masses Neuro General: patient alert, patient awake and patient oriented x3 Results Last Vital Signs Temp 37 C 11/13/21 06:20 Pulse 72 11/13/21 06:20 Resp 16 11/13/21 06:20 BP 144/92 H 11/13/21 06:20 Pulse Ox 97 11/13/21 06:20
--- NOTE | 2021-11-13 07:02 | W.ANESPRE ---
General Info Date of Service Date Performed: 11/13/21 Height: 5 ft 8 in Weight: 79.6 kg Body Mass Index (BMI): 26.6 Surgical Procedure: Operation Date: 11/13/21 07:40 Proposed Procedure Side Surgeon p Cysto w/Transurethral Resection Bladder Tumor Prince Mabry MD Meds Allergies and Home Medications Allergies Allergy/AdvReac Type Severity Reaction Status Date / Time poison pranav extract Allergy Unknown Verified 11/10/21 09:10 Yellow jacket Allergy Unknown Sometimes Uncoded 11/10/21 09:10 bothers and sometimes doesn't Home Medication Medication Instructions Recorded esomeprazole magnesium 22.3 mg 20 mg PO HS 05/11/14 capsule,delayed release (Nexium 24HR) glucosamine [id number]-Oronzrjoz 1 ea PO DAILY 05/11/14 sabra 1,500 mg-400 unit-100 mg tablet (Osteo Bi-Flex (5-Loxin)) multivit with minerals no.21-folic 1 mg PO DAILY 05/11/14 acid 1 mg tablet,delayed release (Supervite (EC)) aspirin 81 mg tablet,delayed 81 mg PO DAILY 05/27/14 release coenzyme Q10 10 mg capsule (Co 10 mg PO DAILY 05/23/16 Q-10) omega-3 fatty acids-fish oil 300 2 ea PO DAILY 05/23/16 mg-1,000 mg capsule biotin 800 mcg tablet 800 mcg PO DAILY 06/27/16 Panax, Citizen Of [place] Ginsg/B12/Royl 1 ea PO DAILY 10/11/17 [Ginseng Complex Capsule] cyclobenzaprine 10 mg tablet 10 mg PO TID PRN muscle spasm #20 12/16/17 tabs betamethasone dipropionate 0.05 % 1 applic topical BID PRN 04/18/18 topical cream dermatitis #15 grams ibuprofen 600 mg tablet (IBU) 600 mg PO TID PRN pain #90 tab-caps 10/29/18 atorvastatin 40 mg tablet 40 mg PO DAILY #90 tab-caps 12/19/20 hydrochlorothiazide 25 mg tablet 25 mg PO DAILY #90 tab-caps 03/13/21 lisinopril 10 mg tablet See Rx Instructions .Route 06/07/21 .COMPLEX #90 tabs sildenafil 100 mg tablet See Rx Instructions .Route 06/09/21 .COMPLEX #10 tabs Current Visit Medications: Current Medications Generic Name Dose Route Start Last Admin Trade Name Freq PRN Reason Stop Dose Admin Ringer's Solution 1,000 mls @ 80 mls/hr 11/13/21 06:00 11/13/21 06:45 IV 12/10/21 23:59 80 mls/hr INFUSION ANNABELLE Administration Cefazolin Sodium/Dextrose 2 gm in 50 mls @ 100 mls/hr 11/13/21 06:00 Ancef Duplex IVPB 11/13/21 16:00 PREOP ANNABELLE IV Miscellaneous Supplies 1 each 11/13/21 06:00 Iv Access IV 12/10/21 23:59 DIRECTED ANNABELLE Sodium Chloride 0 ml 11/13/21 06:00 Normal Saline Flush 10 Ml Syr IV 12/10/21 23:59 PRN PRN Sodium Chloride 0 ml 11/13/21 06:00 Normal Saline 10 Ml Vial IJ 12/10/21 23:59 DIRECTED PRN Sterile Water 0 ml 11/13/21 06:00 Water,Injection,Sterile 10 Ml Vial IJ 12/10/21 23:59 DIRECTED PRN PFSH Active Problems Active Problems: Problem Status Onset Code Bladder mass N32.89 Erectile dysfunction N52.9 Heavy alcohol use Z78.9 Dermatitis L30.9 Tobacco use disorder F17.200 IFG (impaired fasting glucose) 12/28/16 R73.01 Hyperlipidemia 03/02/14 E78.5 GERD (gastroesophageal reflux disease) 03/02/14 K21.9 Essential hypertension 02/02/15 I10 Body mass index (BMI) exceeds 25 05/05/15 Z78.9 Blindness of left eye 03/02/14 H54.40 Medical History Medical History Tendonitis of wrist, left (11/05/14) Tubular adenoma of colon (06/18/14) 2 polyps Surgical History Surgical History Colonoscopy - MAC (02/26/18) Dr Mariscal, no abnormalities, repeat in 10 years. Tobacco Smoking/Tobacco Use Status: Current every day Tobacco Type: cigarettes Smoking packs per day: 1 Smoking cigarettes per day: 20.0 Years smoked: 40 Smoking pack-years: 40.00 Alcohol Alcohol Intake: current Alcohol intake frequency: 3 or more drinks per day Alcohol type: beer Substance Use Substance use: Never Substance use type: does not use Vital Signs and Lab Results Vital Signs Most Recent Vital Signs in EMR: Most Recent Vital Signs Temp Pulse Resp BP Pulse Ox 37 C 72 16 144/92 H 97 11/13/21 06:20 11/13/21 06:20 11/13/21 06:20 11/13/21 06:20 11/13/21 06:20 Vital Signs Comment Vital Signs Comment:: Temp Pulse Resp BP Pulse Ox 37 C 72 16 144/92 H 97 11/13/21 06:20 11/13/21 06:20 11/13/21 06:20 11/13/21 06:20 11/13/21 06:20 Lab Results Blood Type / Crossmatch: No Data to Display Complete Blood Count: No Data to Display Complete Metabolic Panel: No Data to Display Liver Function Panel: No Data to Display Coagulation Panel: No Data to Display Cardiac Panel: No Data to Display Arterial Blood Gas: No Data to Display Venous Blood Gas: No Data to Display Pancreas Panel: No Data to Display Thyroid Panel: No Data to Display Infectious Disease: Coronavirus (COVID-19)(PCR) Negative (Negative) 11/10/21 09:00 Coronavirus 2019 Source Nasal/Nares 11/10/21 09:00 Blood Cultures: No Data to Display Toxicology Panel: No Data to Display Anesthesia Assessment and Plan Anesthesia History Personal History: No History of Anesthesia Complications Family History: No Family History of Anesthesia Complications Exercise Tolerance Exercise Tolerance: Metabolic Equivalents>4 Pertinent Negatives Pertinent Negatives: No Symptoms of GERD, No Major Cardiovascular Symptoms or Complaints and No Major Pulmonary Symptoms or Complaints Cardiac & Pulmonary Exam Cardiac Exam: Normal S1/S2 Heart Sounds Pulmonary Exam: Clear Bilateral Breath Sounds Implantable Cardiac Device Does patient have a Pacemaker or an ICD?: No Airway Exam Known Difficult Airway: No Mallampati Class: 1 Mouth Opening: Normal (> 3cm) Thyromental Distance: Greater than 3 cm Neck Range of Motion: Full ROM Neck Circumference: Normal Teeth Condition: Normal Dentition ASA Classification ASA Score: ASA 2 Emergency Case?: No NPO Status NPO Status: NPO Clears >2 hours, Solids >8 hours Anesthesia Plan Resuscitation Status: Full Code Anesthesia Technique: General Anesthesia Airway Planned: Natural Airway Monitors Used: Standard Monitors
[2021-11-13] MEDS: ceFAZolin 2 GM/50 ML BAG IVPB (07:33)
[2021-11-13] MEDS: Lidocaine 2% Jelly 6 ML SYR (07:47)
--- NOTE | 2021-11-13 07:54 | BLADDER_PTH ---
PATIENT: Duarte Agudelo LOC: [facility] U#:[id number] AGE/SX: 56/M ROOM: RE11/13/[address]: Prince Mabry MD : 1965 BED: DIS: 11/13/2021 SPEC #: [id number] RECD: 11/13/21 12:38 STATUS: LUZ MARIA REQ #: [id number] DEMARIO: 11/13/21 07:[address]: Prince Mabry DEPT: Surgical Specimen RECD BY: Namrata Jenkins ENTERED: 11/13/21 12:39 SP TYPE: Bladder OTHR DR: Wendy Dias APRN Tissues: 1 - BLADDER CURRETTINGS Procedures: GROSS AND MICRO LEVEL 5 Comments: [id number]
--- NOTE | 2021-11-13 08:19 | PDOC.DSDIS_ITS ---
Discharge Plan Disposition Patient Disposition: HOME Condition: Stable Discharge Details Reason For Visit: bladder mass Admit Date/Time: 11/13/21 06:10 Admit Provider: Prince Mabry Attending Provider: Prince Mabry Primary Care Provider: Wendy Dias Hospital Course Hospital Course: We reserved a bed for continuous bladder irrigation following the procedure. When he had his TURBT, hemostatsis was good, so we elected not to admit this gentleman. He was taken back to [facility] and will be discharged from there. Home Meds and New Rx's Prescriptions: No Action betamethasone dipropionate 0.05 % cream 1 applic TP BID PRN (Reason: dermatitis) Qty: 15 3RF Rx Instructions: Affected areas: forearms and lower legs cyclobenzaprine 10 mg tablet 10 mg PO TID PRN (Reason: muscle spasm) Qty: 20 0RF ibuprofen [IBU] 600 mg tablet 600 mg PO TID PRN (Reason: pain) Qty: 90 0RF atorvastatin 40 mg tablet 40 mg PO DAILY Qty: 90 3RF Supervite (EC) 1 MG tablet,delayed release (DR/EC) 1 mg PO DAILY zzladezegsi-E7-[place] serr [Osteo Bi-Flex (5-Loxin)] 1 EACH tablet 1 ea PO DAILY Nexium 24HR 20 MG capsule,delayed release(DR/EC) 20 mg PO HS aspirin 81 MG tablet,delayed release (DR/EC) 81 mg PO DAILY coenzyme Q10 [Co Q-10] 10 MG capsule 10 mg PO DAILY omega-3 fatty acids-fish oil 1 EACH capsule 2 ea PO DAILY biotin 800 MCG tablet 800 mcg PO DAILY Panax, [place] Ginsg/B12/Royl [Ginseng Complex Capsule] 1 EACH capsule 1 ea PO DAILY hydrochlorothiazide 25 mg tablet 25 mg PO DAILY Qty: 90 3RF lisinopril 10 mg tablet See Rx Instructions .ROUTE .COMPLEX Qty: 90 3RF Dose Instruction: TAKE ONE TABLET BY MOUTH EVERY DAY Rx Instructions: TAKE ONE TABLET BY MOUTH EVERY DAY sildenafil 100 mg tablet See Rx Instructions .ROUTE .COMPLEX Qty: 10 6RF Dose Instruction: TAKE 1/2 TABLET BY MOUTH NEEDED FOR SEXUAL ACTIVITY. TAKE 30 MINUTES TO 4 HOURS BEFORE ACTIVITY Rx Instructions: TAKE 1/2 TABLET BY MOUTH NEEDED FOR SEXUAL ACTIVITY. TAKE 30 MINUTES TO 4 HOURS BEFORE ACTIVITY Discharge Instructions Additional Instructions: greene to gravity (either large bag or leg bag) no lifting over 10 pounds followup 1 week for catheter removal followup 2 weeks for pathology results Activity:: no lifting over 10 pounds Equipment/Supplies:: greene to gravity Diet:: As Tolerated Discharge Orders Discharge Orders: Discharge Order (Routine); Ordered 11/13/21 Ordered By: Prince Mabry DS: Diagnosis Discharge Diagnosis (1) Bladder mass: Status: Acute
--- NOTE | 2021-11-13 08:24 | W.PM.OP ---
Date of service: 11/13/21 Time of Service: 08:24 Operative Note Operative Note DATE OF PROCEDURE: 11/13/21 PRE-OP DIAGNOSIS: Bladder mass POST-OP DIAGNOSIS: same PROCEDURE: cystoscopy with TURBT (5 cm) SURGEON: Prince aMbry ANESTHESIA TYPE: Local By Surgeon and General:No Airway Refer to Anesthesia Record ESTIMATED BLOOD LOSS: 100 PATHOLOGY: other (bladder tumor) COMPLICATIONS: None Patient was transported to: PACU Patient's condition: stable Implants: 18 Maldivian greene catheter with 10 cc sterile water in balloon Indications: This is a 56-year-old gentleman who was initially referred to see us due to the presence of gross, painless hematuria. He underwent a CT scan which demonstrated a filling defect on the right side of his bladder. He presents now for transurethral resection of that lesion. Findings: 5 cm papillary lesion (with attached mucus) behind right ureteral orifice Procedure Description: He was brought to the operating room on 11/13/2021. He was given preoperative IV antibiotics. After successful induction of general anesthesia, he was placed in the dorsal lithotomy position. His genitalia was prepped and drape. 2% Xylocaine jelly was instilled into the urethra to act as a local anesthetic. A 24 Maldivian resectoscope was passed through the urethra into the bladder. We used a 30 degree lens and a visual obturator to inspect the urethra and bladder. The pendulous, membranous and bulbar urethra all appeared normal with no strictures. The prostatic urethra showed mild lateral lobe enlargement with no significant median lobe. The left ureteral orifice appeared normal in configuration and location. The right orifice appeared normal as well, but just behind the right ureteral orifice, there was a 5 cm papillary lesion with overlying mucus. The lesion had the typical appearance of a urothelial cell carcinoma. No additional papillary lesions were seen within the bladder. I then resected the visible lesion using an [employer] resectoscope and bipolar cautery. All resected tissue was evacuated and sent to pathology for permanent section. In an effort to obtain hemostasis, I then utilized a button electrode to cauterize the base of the resected area. Hemostasis appeared quite good, so we elected not to place an irrigating catheter for continuous bladder irrigation. We chose an 18 Maldivian Greene catheter and passed it through the urethra into the bladder. The catheter balloon was inflated with 10 cc of sterile water and the catheter was hooked to gravity drainage. A belladonna and opium suppository was then inserted into the patient's rectum. The patient tolerated the procedure well with no complications. A bimanual examination at the completion of the resection showed no pelvic fixation and no palpable mass.
[2021-11-13] MEDS: fentaNYL 100 MCG/2 ML VIAL IVP (08:49)
--- NOTE | 2021-11-13 09:18 | W.ANESPOSTOP ---
Postoperative Evaluation Date, Time and Location Date Performed: 11/13/21 Time Performed: 09:00 Patient Location: PACU Vital Signs Most Recent Imported Vital Signs: Most Recent Vital Signs Temp Pulse Resp BP Pulse Ox 36.5 C 55 L 16 124/84 93 11/13/21 09:00 11/13/21 09:09 11/13/21 09:09 11/13/21 09:09 11/13/21 09:09 Pain Score Most Recent Pain Score: Most Recent Pain Score Pain Level 0 11/13/21 09:09 Assessment Mental Status: Awake (Alert & Oriented to Patient Baseline) Airway and Respiratory Function: Patent airway with normal (patient baseline) respiratory exam Cardiovascular Function: Hemodynamically Stable Hydration Status: Adequately Hydrated Nausea & Vomiting: No Nausea or Vomiting Pain: Pain is tolerable per patient Peripheral Nerve Block: Patient did not receive a nerve block
[2021-11-13] MEDS: Phenazopyridine 200 MG TAB PO (09:41)
--- NOTE | 2021-11-13 10:03 | PDOC.DSDIS_ITS ---
Discharge Plan Disposition Patient Disposition: HOME Condition: Stable Discharge Details Reason For Visit: bladder mass Admit Date/Time: 11/13/21 06:10 Admit Provider: Prince Mabry Attending Provider: Prince Mabry Primary Care Provider: Wendy Dias Hospital Course Hospital Course: We reserved a bed for continuous bladder irrigation following the procedure. When he had his TURBT, hemostatsis was good, so we elected not to admit this gentleman. He was taken back to [facility] and will be discharged from there. Home Meds and New Rx's Prescriptions: New hyoscyamine sulfate 0.125 mg tablet 0.125 mg PO QID PRN (Reason: spasms) Qty: 20 0RF No Action betamethasone dipropionate 0.05 % cream 1 applic TP BID PRN (Reason: dermatitis) Qty: 15 3RF Rx Instructions: Affected areas: forearms and lower legs cyclobenzaprine 10 mg tablet 10 mg PO TID PRN (Reason: muscle spasm) Qty: 20 0RF ibuprofen [IBU] 600 mg tablet 600 mg PO TID PRN (Reason: pain) Qty: 90 0RF atorvastatin 40 mg tablet 40 mg PO DAILY Qty: 90 3RF Supervite (EC) 1 MG tablet,delayed release (DR/EC) 1 mg PO DAILY [id number] serr [Osteo Bi-Flex (5-Loxin)] 1 EACH tablet 1 ea PO DAILY Nexium 24HR 20 MG capsule,delayed release(DR/EC) 20 mg PO HS aspirin 81 MG tablet,delayed release (DR/EC) 81 mg PO DAILY coenzyme Q10 [Co Q-10] 10 MG capsule 10 mg PO DAILY omega-3 fatty acids-fish oil 1 EACH capsule 2 ea PO DAILY biotin 800 MCG tablet 800 mcg PO DAILY Panax, Lebanese Ginsg/B12/Royl [Ginseng Complex Capsule] 1 EACH capsule 1 ea PO DAILY hydrochlorothiazide 25 mg tablet 25 mg PO DAILY Qty: 90 3RF lisinopril 10 mg tablet See Rx Instructions .ROUTE .COMPLEX Qty: 90 3RF Dose Instruction: TAKE ONE TABLET BY MOUTH EVERY DAY Rx Instructions: TAKE ONE TABLET BY MOUTH EVERY DAY sildenafil 100 mg tablet See Rx Instructions .ROUTE .COMPLEX Qty: 10 6RF Dose Instruction: TAKE 1/2 TABLET BY MOUTH NEEDED FOR SEXUAL ACTIVITY. TAKE 30 MINUTES TO 4 HOURS BEFORE ACTIVITY Rx Instructions: TAKE 1/2 TABLET BY MOUTH NEEDED FOR SEXUAL ACTIVITY. TAKE 30 MINUTES TO 4 HOURS BEFORE ACTIVITY Discharge Instructions Instructions: Greene Catheter Placement and Care (DC), How to Change a Catheter Drainage Bag (DC) Additional Instructions: greene to gravity (either large bag or leg bag) no lifting over 10 pounds followup 1 week for catheter removal followup 2 weeks for pathology results Stand Alone Forms: [facility], Press Ganey ([facility]) Activity:: no lifting over 10 pounds Equipment/Supplies:: greene to gravity Diet:: As Tolerated Discharge Orders Discharge Orders: Discharge Order (Routine); Ordered 11/13/21 Ordered By: Prince Mabry DS: Diagnosis Discharge Diagnosis (1) Bladder mass: Status: Acute
== END 2021-11-13 10:50 | disposition home or self-care (01) ==
LOC: PDS 08:37 → DSU 12:31
PROVIDERS: PCP Nurse Practitioner Family; Visit Provider Urology
PROC: 0TBB8ZZ Excision of Bladder, Via Natural or Artificial Opening Endoscopic (ICD-10-PCS; CPT 52235; principal; 2021-11-13 07:30)
DX: N32.89 Other specified disorders of bladder (principal); R31.0 Gross hematuria; F17.210 Nicotine dependence, cigarettes, uncomplicated; C67.9 Malignant neoplasm of bladder, unspecified
CPT/HCPCS: 52235; 88307; J0690; J1100; J1885; J2250; J2405; J2704; J3010

== ENCOUNTER 2021-11-22 11:42 | Outpatient (CLI) | payer OTHER, SELFPAY ==
[2021-11-22 12:00] LABS: Bilirubin Negative (Negative); Blood Trace-intact (Negative); Clarity Clear (Clear); Glucose Negative (Negative); Ketones Negative (Negative); Leukocyte Esterase Small (Negative); Nitrite Negative (Negative); Urobilinogen 0.2 EU/dL (Up TO 0.2); pH 7.5 (5-8)
[2021-11-22 12:07] LABS: Bacteria Rare HPF (Negative); Epithelial Cells Negative HPF (Negative); Other Cells Negative (Negative); RBC 0-2 HPF (0-2)
[2021-11-22 12:08] LABS: C & S Indicated? C&S Done As Ordered; Casts Negative LPF (Negative); Crystals Negative HPF (Negative); Mucus Negative (Negative)
== END 2021-11-22 11:43 | disposition home or self-care (01) ==
LOC: LBO 11:43
PROVIDERS: PCP Nurse Practitioner Family; Visit Provider Nurse Practitioner Gerontology
DX: R30.0 Dysuria (principal)
CPT/HCPCS: 81003; 81015; 87086

== ENCOUNTER 2021-12-18 03:31 | Outpatient (CLI) | payer OTHER, SELFPAY ==
[2021-12-18 08:42] LABS: HCT 36.6 % (40.0-50.0); HGB 12.7 g/dL (13.5-17.5); MCH 32.3 pg (27.0-33.0); MCHC 34.7 % (32.0-36.0); MCV 93 fL (80-95); MPV 10.4 fL (8.0-11.0); Platelet Count 214 10^3/uL (130-400); RBC 3.93 10^6/uL (4.36-5.78); RDW 12.1 % (11.8-14.1); RDW-SD 41.6 fL; WBC 8.48 10^3/uL (4.4-10.8)
== END 2021-12-18 03:32 | disposition home or self-care (01) ==
PROVIDERS: PCP Nurse Practitioner Family; Visit Provider Nurse Practitioner
DX: R79.89 Other specified abnormal findings of blood chemistry (principal); I10 Essential (primary) hypertension
CPT/HCPCS: 36415; 85027

== ENCOUNTER 2022-02-22 01:33 | Outpatient (CLI) | payer OTHER, SELFPAY ==
[2022-02-22 10:19] LABS: Abs Immature Grans 0.04 10^3/uL (0.0-0.06); Absolute Basophil Count 0.03 10^3/uL (0.0-0.2); Absolute Eosinophil Count 0.23 10^3/uL (0.0-0.7); Absolute Lymphocyte Count 2.65 10^3/uL (1.2-3.4); Absolute Monocyte Count 0.76 10^3/uL (0.1-0.8); Absolute Neutrophil Count 3.37 10^3/uL (1.2-6.7); Basophils % 0.4; Eosinophils % 3.2; HCT 37.5 % (40.0-50.0); HGB 13.2 g/dL (13.5-17.5); Immature Grans % 0.6; Lymphocytes % 37.4; MCH 31.7 pg (27.0-33.0); MCHC 35.2 % (32.0-36.0); MCV 90 fL (80-95); MPV 10.2 fL (8.0-11.0); Monocytes % 10.7; Neutrophils % 47.7; Platelet Count 222 10^3/uL (130-400); RBC 4.17 10^6/uL (4.36-5.78); RDW 11.7 % (11.8-14.1); RDW-SD 38.7 fL; WBC 7.08 10^3/uL (4.4-10.8)
== END 2022-02-22 01:34 | disposition home or self-care (01) ==
LOC: LBO 01:33
PROVIDERS: PCP Nurse Practitioner Family; Visit Provider Nurse Practitioner Family
DX: D64.9 Anemia, unspecified (principal)
CPT/HCPCS: 36415; 85025

== ENCOUNTER 2022-03-05 06:16 | Day surgery (SDC) | payer OTHER, SELFPAY ==
[2022-03-05 06:36] VITALS: BP 144/89; PULSE 79; RESP 18; TEMP 36.7; O2SAT 96
[2022-03-05] MEDS: Lactated Ringers 1,000 ML 80 ML IV (07:00)
--- NOTE | 2022-03-05 07:01 | W.PM.HP.N ---
Date of service: 03/05/22 Time of Service: 07:01 Assessment and Plan Assessment and plan (1) Bladder cancer: Status: Acute Assessment and plan: For cystoscopy and TURBT. Based on the pathology results, we will decide whether maintenance BCG doses might be indicated. 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 He was treated with transurethral resection followed by an induction series of intravesical BCG. He presents for follow-up cystoscopy and transurethral resection of any visible tumor. He has no gross hematuria or dysuria. He had no adverse reaction to the BCG treatments. Review of Systems Narrative: No fevers or chills Decreased vision left eye. No dysphasia No diabetes or thyroid dysfunction No shortness of breath, cough or hemoptysis No chest pain or palpitations Hx GERD. No hepatitis, ulcers, jaundice, diarrhea or constipation No seizures, strokes or peripheral neuropathy No bleeding disorders No gout PFSH All Active Problems Blindness of left eye (Chronic 03/02/14) Body mass index (BMI) exceeds 25 (Chronic 05/05/15) Essential hypertension (Chronic 02/02/15) GERD (gastroesophageal reflux disease) (Chronic 03/02/14) Hyperlipidemia (Chronic 03/02/14) 03/2018 labs: IFG (impaired fasting glucose) (Chronic 12/28/16) Tobacco use disorder (Chronic) Dermatitis (Chronic) 11/2017 [facility] [place] Derm consult Heavy alcohol use (Acute) Erectile dysfunction (Acute) Bladder cancer (Acute) History of colon polyps (Acute) COVID (Acute ~02/14/22) Anemia (Chronic) Medical History Tendonitis of wrist, left (11/05/14) Tubular adenoma of colon (06/18/14) 2 polyps Surgical History (Updated 03/05/22 @ 06:35 by Kaycee Watson) Colonoscopy - MAC (02/26/18) Dr Mariscal, no abnormalities, repeat in 10 years. Hx of cystoscopy Family History Mother Aortic aneurysm Father No problems noted. Sister No problems noted. Sister No problems noted. Brother No problems noted. Brother No problems noted. Brother No problems noted. Social History Smoking/Tobacco Use Status: Former Tobacco Use Quit Date: 02/15/22 Tobacco: How many years used: 40 Quit status: has quit before Smoking risk assessment performed?: Yes Alcohol Intake: current Alcohol Intake frequency: 3 or more drinks per day Alcohol type: beer Drug use: Never Substance use type: does not use Details: alcohol: t-1, one beer Adopted: No Caregiver/Support person: No Foster care: No Housing: house Number of Children: 1 Communication Needs: None Education Level: vocational Do you need help understanding health information?: Rarely current occupation: [employer] Nurse Pets and animals: No Sexually active: Yes Do you think of yourself as: straight/heterosexual Current gender identity: male What is your relationship status?: never How often do you talk on the phone with friends or family?: once per week How often do you get together with friends or relatives?: twice per week How often do you attend evangelical or latter day services?: decline to answer Do you belong to any clubs or organized social groups?: no Panel score (0-1 are the most socially isolated patients): 1 What type of physical activity do you participate in: regular exercise and other Details: Active with work on [employer] Duration: 30-45 minutes/day Frequency: daily Gricelda/Synagogue: [employer] Special gricelda needs: No Seatbelt use: always Helmet use: Yes Drive intox or ride w/intox new 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: No Water heater temp set <120 deg: Yes Working smoke detector in home: No Fire extinguisher in home: Yes Carbon monox detector in home: No Do you feel safe at home: Yes Additional Social history: lives alone, unable to assess privately Meds Allergies and Home Medications Allergies Allergy/AdvReac Type Severity Reaction Status Date / Time poison pranav extract Allergy Unknown Verified 03/05/22 06:29 Yellow jacket Allergy Unknown Sometimes Uncoded 03/05/22 06:29 bothers and sometimes doesn't Home Medications Medication Instructions Recorded Confirmed Type esomeprazole magnesium 22.3 mg 20 mg PO HS 05/11/14 03/05/22 History capsule,delayed release (Nexium 24HR) glucosamine [id number] 1 ea PO DAILY 05/11/14 03/05/22 History sabra 1,500 mg-400 unit-100 mg tablet (Osteo Bi-Flex (5-Loxin)) multivit with minerals no.21-folic 1 mg PO DAILY 05/11/14 03/05/22 History acid 1 mg tablet,delayed release (Supervite (EC)) aspirin 81 mg tablet,delayed 81 mg PO DAILY 05/27/14 03/05/22 History release coenzyme Q10 10 mg capsule (Co 10 mg PO DAILY 05/23/16 03/05/22 History Q-10) omega-3 fatty acids-fish oil 300 2 ea PO DAILY 05/23/16 03/05/22 History mg-1,000 mg capsule biotin 800 mcg tablet 800 mcg PO DAILY 06/27/16 03/05/22 History Panax, Emir[place] Ginsg/B12/Royl 1 ea PO DAILY 10/11/17 03/05/22 History [Ginseng Complex Capsule] betamethasone dipropionate 0.05 % 1 applic topical BID PRN 04/18/18 03/05/22 Rx topical cream dermatitis #15 grams ibuprofen 600 mg tablet (IBU) 600 mg PO TID PRN pain #90 tab-caps 10/29/18 03/05/22 Rx hydrochlorothiazide 25 mg tablet 25 mg PO DAILY #90 tab-caps 03/13/21 03/05/22 Rx lisinopril 10 mg tablet See Rx Instructions .Route 06/07/21 03/05/22 Rx .COMPLEX #90 tabs sildenafil 100 mg tablet See Rx Instructions .Route 06/09/21 03/05/22 Rx .COMPLEX #10 tabs tramadol 50 mg tablet 50 mg PO Q6H PRN pain #20 tabs 11/14/21 03/05/22 Rx coenzyme Q10 75 mg capsule (Ultra 75 mg PO DAILY 11/28/21 03/05/22 History CoQ10) mecobalamin (vitamin B12) 1,000 1,000 mcg PO DAILY 11/28/21 03/05/22 History mcg chewable tablet melatonin 10 mg capsule 10 mg PO HS PRN 11/28/21 03/05/22 History saw palmetto 450 mg capsule 450 mg PO BID 11/28/21 03/05/22 History tumeric 100 mg-elina 150 mg-olive cap PO 11/28/21 01/25/22 History 50 mg-oreg 150 mg-caprylate capsule atorvastatin 40 mg tablet 40 mg PO DAILY #90 tab-caps 12/28/21 03/05/22 Rx bupropion HCl 150 mg tablet,12 hr 150 mg PO BID smoking cessation 02/01/22 03/05/22 Rx sustained-release (Wellbutrin SR) #180 tabs Exam Const General: cooperative and comfortable Neck Neck: supple Resp Effort & Inspection: normal respiratory effort Auscultation: clear to auscultation bilaterally Cardio Rate: regular rate Rhythm: regular rhythm GI Palpation: soft and no masses Neuro General: patient alert, patient awake and patient oriented x3 Results Last Vital Signs Temp 36.7 C 03/05/22 06:36 Pulse 79 03/05/22 06:36 Resp 18 03/05/22 06:36 BP 144/89 H 03/05/22 06:36 Pulse Ox 96 03/05/22 06:36
--- NOTE | 2022-03-05 07:12 | ANES.PREOP_ITS ---
General Info Date of Service Date Performed: 03/05/22 Height: 5 ft 8 in Weight: 85.3 kg Body Mass Index (BMI): 28.5 Surgical Procedure: Operation Date: 03/05/22 07:40 Proposed Procedure Side Surgeon p Cystoscopy w/Transurethral Resection Bladder Tumor Prince Mabry MD Meds Allergies and Home Medications Allergies Allergy/AdvReac Type Severity Reaction Status Date / Time poison pranav extract Allergy Unknown Verified 03/05/22 06:29 Yellow jacket Allergy Unknown Sometimes Uncoded 03/05/22 06:29 bothers and sometimes doesn't Home Medication Medication Instructions Recorded esomeprazole magnesium 22.3 mg 20 mg PO HS 05/11/14 capsule,delayed release (Nexium 24HR) glucosamine [id number]-J9-Pupodcaiv 1 ea PO DAILY 05/11/14 sabra 1,500 mg-400 unit-100 mg tablet (Osteo Bi-Flex (5-Loxin)) multivit with minerals no.21-folic 1 mg PO DAILY 05/11/14 acid 1 mg tablet,delayed release (Supervite (EC)) aspirin 81 mg tablet,delayed 81 mg PO DAILY 05/27/14 release coenzyme Q10 10 mg capsule (Co 10 mg PO DAILY 05/23/16 Q-10) omega-3 fatty acids-fish oil 300 2 ea PO DAILY 05/23/16 mg-1,000 mg capsule biotin 800 mcg tablet 800 mcg PO DAILY 06/27/16 Panax, Cambodian Ginsg/B12/Royl 1 ea PO DAILY 10/11/17 [Ginseng Complex Capsule] betamethasone dipropionate 0.05 % 1 applic topical BID PRN 04/18/18 topical cream dermatitis #15 grams ibuprofen 600 mg tablet (IBU) 600 mg PO TID PRN pain #90 tab-caps 10/29/18 hydrochlorothiazide 25 mg tablet 25 mg PO DAILY #90 tab-caps 03/13/21 lisinopril 10 mg tablet See Rx Instructions .Route 06/07/21 .COMPLEX #90 tabs sildenafil 100 mg tablet See Rx Instructions .Route 06/09/21 .COMPLEX #10 tabs tramadol 50 mg tablet 50 mg PO Q6H PRN pain #20 tabs 11/14/21 coenzyme Q10 75 mg capsule (Ultra 75 mg PO DAILY 11/28/21 CoQ10) mecobalamin (vitamin B12) 1,000 1,000 mcg PO DAILY 11/28/21 mcg chewable tablet melatonin 10 mg capsule 10 mg PO HS PRN 11/28/21 saw palmetto 450 mg capsule 450 mg PO BID 11/28/21 tumeric 100 mg-elina 150 mg-olive cap PO 11/28/21 50 mg-oreg 150 mg-caprylate capsule atorvastatin 40 mg tablet 40 mg PO DAILY #90 tab-caps 12/28/21 bupropion HCl 150 mg tablet,12 hr 150 mg PO BID smoking cessation 02/01/22 sustained-release (Wellbutrin SR) #180 tabs Current Visit Medications: Current Medications Generic Name Dose Route Start Last Admin Trade Name Freq PRN Reason Stop Dose Admin Ringer's Solution 1,000 mls @ 80 mls/hr 03/05/22 06:00 03/05/22 07:00 IV 04/01/22 23:59 80 mls/hr INFUSION ANNABELLE Administration Cefazolin Sodium/Dextrose 2 gm in 50 mls @ 100 mls/hr 03/05/22 06:00 Ancef Duplex IVPB 04/01/22 23:59 PREOP ANNABELLE IV Miscellaneous Supplies 1 each 03/05/22 06:00 Iv Access IV 04/01/22 23:59 DIRECTED ANNABELLE Sodium Chloride 0 ml 03/05/22 06:00 Normal Saline Flush 10 Ml Syr IV 04/01/22 23:59 PRN PRN Sodium Chloride 0 ml 03/05/22 06:00 Normal Saline 10 Ml Vial IJ 04/01/22 23:59 DIRECTED PRN Sterile Water 0 ml 03/05/22 06:00 Water,Injection,Sterile 10 Ml Vial IJ 04/01/22 23:59 DIRECTED PRN PFSH Active Problems Active Problems: Problem Status Onset Code Blindness of left eye 03/02/14 H54.40 Body mass index (BMI) exceeds 25 05/05/15 Z78.9 Essential hypertension 02/02/15 I10 GERD (gastroesophageal reflux disease) 03/02/14 K21.9 Hyperlipidemia 03/02/14 E78.5 IFG (impaired fasting glucose) 12/28/16 R73.01 Tobacco use disorder F17.200 Dermatitis L30.9 Heavy alcohol use Z78.9 Erectile dysfunction N52.9 Bladder cancer C67.9 History of colon polyps Z86.010 COVID ~02/14/22 U07.1 Anemia D64.9 Medical History Medical History Tendonitis of wrist, left (11/05/14) Tubular adenoma of colon (06/18/14) 2 polyps Surgical History Surgical History (Updated 03/05/22 @ 06:35 by Kaycee Watson) Colonoscopy - MAC (02/26/18) Dr Mariscal, no abnormalities, repeat in 10 years. Hx of cystoscopy Tobacco Smoking/Tobacco Use Status: Former Tobacco Use Alcohol Alcohol Intake: current Alcohol intake frequency: 3 or more drinks per day Alcohol type: beer Substance Use Substance use: Never Substance use type: does not use Details: alcohol: t-1, one beer Vital Signs and Lab Results Vital Signs Most Recent Vital Signs in EMR: Most Recent Vital Signs Temp Pulse Resp BP Pulse Ox 36.7 C 79 18 144/89 H 96 03/05/22 06:36 03/05/22 06:36 03/05/22 06:36 03/05/22 06:36 03/05/22 06:36 Lab Results Blood Type / Crossmatch: No Data to Display Complete Blood Count: White Blood Count 7.08 10^3/uL (4.4-10.8) 02/22/22 10:06 Red Blood Count 4.17 10^6/uL (4.36-5.78) L 02/22/22 10:06 Hemoglobin 13.2 g/dL (13.5-17.5) L 02/22/22 10:06 Hematocrit 37.5 % (40.0-50.0) L 02/22/22 10:06 Platelet Count 222 10^3/uL (130-400) 02/22/22 10:06 Complete Metabolic Panel: No Data to Display Liver Function Panel: No Data to Display Coagulation Panel: No Data to Display Cardiac Panel: No Data to Display Arterial Blood Gas: No Data to Display Venous Blood Gas: No Data to Display Pancreas Panel: No Data to Display Thyroid Panel: No Data to Display Infectious Disease: No Data to Display Blood Cultures: No Data to Display Toxicology Panel: No Data to Display Anesthesia Assessment and Plan Anesthesia History Personal History: No History of Anesthesia Complications Family History: No Family History of Anesthesia Complications Exercise Tolerance Exercise Tolerance: Metabolic Equivalents>4 Pertinent Negatives Pertinent Negatives: No Symptoms of GERD, No Major Cardiovascular Symptoms or Complaints, No Major Pulmonary Symptoms or Complaints and No History of CVA/TIA Cardiac & Pulmonary Exam Cardiac Exam: Normal S1/S2 Heart Sounds Pulmonary Exam: Clear Bilateral Breath Sounds Cardiac and Pulmonary Comment:: Quit smoking 2 weeks ago Implantable Cardiac Device Does patient have a Pacemaker or an ICD?: No Airway Exam Known Difficult Airway: No Mallampati Class: 1 Mouth Opening: Normal (> 3cm) Thyromental Distance: Greater than 3 cm Neck Range of Motion: Full ROM Neck Circumference: Normal Teeth Condition: Normal Dentition ASA Classification ASA Score: ASA 2 Emergency Case?: No NPO Status NPO Status: NPO Clears >2 hours, Solids >8 hours Anesthesia Plan Resuscitation Status: Full Code Anesthesia Technique: General Anesthesia Airway Planned: Natural Airway Monitors Used: Standard Monitors
[2022-03-05 07:15] VITALS: BMI 28.5
[2022-03-05] MEDS: ceFAZolin 2 GM/50 ML BAG IVPB (07:38)
[2022-03-05] MEDS: Lidocaine 2% Jelly 6 ML SYR (08:03)
--- NOTE | 2022-03-05 08:05 | BLADDER_PTH ---
PATIENT: Duarte Agudelo LOC: [facility] U#:[id number] AGE/SX: 56/M ROOM: RE03/05/[address]: Prince Mabry MD : [id number] BED: DIS: 03/05/2022 SPEC #: [id number] RECD: 03/05/22 12:12 STATUS: LUZ MARIA RE #: [id number] DEMARIO: 03/05/22 08:[address]: Prince Mabry DEPT: Surgical Specimen RECD BY: Namrata Jenkins ENTERED: 03/05/22 12:13 SP TYPE: Bladder OTHR DR: Wendy Dias APRN Tissues: 1 - BLADDER BIOPSY Procedures: GROSS AND MICRO LEVEL 5 Comments: [id number]
[2022-03-05 08:15] VITALS: BP 119/80; PULSE 75; RESP 18; TEMP 36.4; O2SAT 95
--- NOTE | 2022-03-05 08:15 | W.PM.DSUDISC ---
Date of service: 03/05/22 Time of Service: 08:16 Discharge Plan Disposition Patient Disposition: Home Condition: Good Discharge Details Reason For Visit: cystoscopy Attending Provider: Prince Mabry Primary Care Provider: Wendy Dias Home Meds and New Rx's Prescriptions: No Action betamethasone dipropionate 0.05 % cream 1 applic TP BID PRN (Reason: dermatitis) Qty: 15 3RF Rx Instructions: Affected areas: forearms and lower legs ibuprofen [IBU] 600 mg tablet 600 mg PO TID PRN (Reason: pain) Qty: 90 0RF bupropion HCl [Wellbutrin SR] 150 mg tablet sustained-release 12 hr 150 mg PO BID Qty: 180 0RF Rx Instructions: Begin taking at least 1 week before target quit date. Start with 150 mg once daily, then increase to 150 mg twice daily after 3 days. If successful at quitting, continue treatment for at least 12 weeks. tramadol 50 mg tablet 50 mg PO Q6H PRN (Reason: pain) Qty: 20 0RF Rx Instructions: may take along with NSAIDS/Tylenol saw palmetto 450 mg capsule 450 mg PO BID Rx Instructions: give with food (meal/snack) mecobalamin (vitamin B12) 1,000 mcg tablet,chewable 1,000 mcg PO DAILY melatonin 10 mg capsule 10 mg PO HS PRN hpazhjo-eeye-fkbjl-oreg-capryl 100 mg-150 mg- 50 mg-150 mg capsule PO Ultra CoQ10 75 mg capsule 75 mg PO DAILY Supervite (EC) 1 MG tablet,delayed release (DR/EC) 1 mg PO DAILY acdozlruezm-[id number]-Cfgksfwtk serr [Osteo Bi-Flex (5-Loxin)] 1 EACH tablet 1 ea PO DAILY Nexium 24HR 20 MG capsule,delayed release(DR/EC) 20 mg PO HS aspirin 81 MG tablet,delayed release (DR/EC) 81 mg PO DAILY coenzyme Q10 [Co Q-10] 10 MG capsule 10 mg PO DAILY omega-3 fatty acids-fish oil 1 EACH capsule 2 ea PO DAILY biotin 800 MCG tablet 800 mcg PO DAILY Panax, Argentine Ginsg/B12/Royl [Ginseng Complex Capsule] 1 EACH capsule 1 ea PO DAILY hydrochlorothiazide 25 mg tablet 25 mg PO DAILY Qty: 90 3RF lisinopril 10 mg tablet See Rx Instructions .ROUTE .COMPLEX Qty: 90 3RF Dose Instruction: TAKE ONE TABLET BY MOUTH EVERY DAY Rx Instructions: TAKE ONE TABLET BY MOUTH EVERY DAY sildenafil 100 mg tablet See Rx Instructions .ROUTE .COMPLEX Qty: 10 6RF Dose Instruction: TAKE 1/2 TABLET BY MOUTH NEEDED FOR SEXUAL ACTIVITY. TAKE 30 MINUTES TO 4 HOURS BEFORE ACTIVITY Rx Instructions: TAKE 1/2 TABLET BY MOUTH NEEDED FOR SEXUAL ACTIVITY. TAKE 30 MINUTES TO 4 HOURS BEFORE ACTIVITY atorvastatin 40 mg tablet 40 mg PO DAILY Qty: 90 3RF Hold Instructions: Home Medication placed on hold at Doctor's office Discharge Instructions Additional Instructions: followup 1 to 2 weeks for pathology results OK to restart all home meds Activity:: Activity as Tolerated Shower/Bathe:: 24 hours Diet:: As Tolerated Discharge Orders Discharge Orders: Discharge Order (Routine); Ordered 03/05/22 Ordered By: Prince Mabry DS: Diagnosis Discharge Diagnosis (1) Bladder cancer: Status: Acute
--- NOTE | 2022-03-05 08:21 | W.PM.OP ---
Date of service: 03/05/22 Time of Service: 08:21 Operative Note Operative Note DATE OF PROCEDURE: 03/05/22 PRE-OP DIAGNOSIS: Bladder cancer POST-OP DIAGNOSIS: same PROCEDURE: Cystoscopy, TURBT SURGEON: Prince Mabry ANESTHESIA TYPE: General:No Airway Refer to Anesthesia Record ESTIMATED BLOOD LOSS: 5 PATHOLOGY: other (bladder tumors) COMPLICATIONS: None Patient was transported to: same day Patient's condition: stable Indications: This is a 56-year-old gentleman who has a past history of hematuria and a bladder mass. He underwent cystoscopy with transurethral resection of the visible mass. 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 He was treated with an induction course of intravesical BCG. He presents now for surveillance cystoscopy and possible transurethral resection. Findings: multiple small papillary tumors (left lateral wall and dome) Procedure Description: The patient was brought to the operating room on 03/05/2022. He was given preoperative IV antibiotics. After successful induction of general anesthesia, he was placed in the dorsal lithotomy position. His genitalia was prepped and draped. 2% Xylocaine jelly was instilled into the urethra to act as a local anesthetic. A 24 Occitan resectoscope sheath was passed through the urethra into the bladder. The urethra and bladder were inspected with the visual obturator and a 30 degree lens. The pendulous, bulbar and membranous urethra all appeared normal with no strictures. The prostatic urethra showed some lateral lobe enlargement but no papillary lesions on the prostatic urethral mucosa. The bladder neck was entered and the bladder mucosa was inspected. There was a scar on the right side of the bladder adjacent to the trigone. This was the site of his previous TUR bladder tumor. No residual or recurrent tumor was found in that location. There was a papillary lesion on the left side of the bladder. This lesion measured less than 2 cm. Up towards the dome of the bladder there were multiple small papillary lesions which each measured less than 2 cm. I then utilized an Hernandez resectoscope and bipolar cautery to resect and fulgurate all visible tumor. All resected tissue was evacuated and sent to pathology for permanent section. Once all visible tumor had been treated, the bladder was emptied and the resectoscope was removed. The patient tolerated the procedure well with no complications.
[2022-03-05 08:45] VITALS: BP 123/86; PULSE 72; RESP 18; TEMP 36.3; O2SAT 94
[2022-03-05 08:46] VITALS: BP 123/86; PULSE 72; RESP 18; TEMP 36.3; O2SAT 94
[2022-03-05] MEDS: Phenazopyridine 200 MG TAB PO (08:48)
--- NOTE | 2022-03-05 10:40 | W.ANESPOSTOP ---
Postoperative Evaluation Date, Time and Location Date Performed: 03/05/22 Time Performed: 08:46 Patient Location: Day Surgery Unit Vital Signs Most Recent Imported Vital Signs: Most Recent Vital Signs Temp Pulse Resp BP Pulse Ox 36.3 C L 72 18 123/86 94 03/05/22 08:46 03/05/22 08:46 03/05/22 08:46 03/05/22 08:46 03/05/22 08:46 Pain Score Most Recent Pain Score: Most Recent Pain Score Pain Level 0 03/05/22 06:36 Assessment Mental Status: Awake (Alert & Oriented to Patient Baseline) Airway and Respiratory Function: Patent airway with normal (patient baseline) respiratory exam Cardiovascular Function: Hemodynamically Stable Hydration Status: Adequately Hydrated Nausea & Vomiting: No Nausea or Vomiting Pain: Pt. Denies Any Pain Peripheral Nerve Block: Patient did not receive a nerve block
== END 2022-03-05 09:16 | disposition home or self-care (01) ==
PROVIDERS: PCP Nurse Practitioner Family; Visit Provider Urology
PROC: 0TBB8ZZ Excision of Bladder, Via Natural or Artificial Opening Endoscopic (ICD-10-PCS; CPT 52234; principal; 2022-03-05 07:30)
DX: C67.9 Malignant neoplasm of bladder, unspecified (principal); I10 Essential (primary) hypertension; D64.9 Anemia, unspecified; F17.210 Nicotine dependence, cigarettes, uncomplicated
CPT/HCPCS: 52234; 88305; 88307; J0690; J1100; J1885; J2250; J2405; J2704

== ENCOUNTER 2022-04-10 14:50 | Emergency (ER) | payer OTHER, SELFPAY ==
[2022-04-10] VITALS (9 sets, daily range): BP systolic 132–142; BP diastolic 88–98; PULSE 77–87; RESP 13–19; TEMP 36.6; O2SAT 89–96
--- NOTE | 2022-04-10 15:00 | RT.EKG_ITS ---
APPROVED REPORT Exam: Resting ECG Reason for Exam: epigastric pain, diaphoresis, nausea Patient Location: E HR:79 bpm ECG Measurements Heart Rate 79 AXIS VT 169 P 18 QRSd 78 QRS -2 QT 365 T 35 QTc 419 Conclusion Sinus rhythm...normal P axis, V-rate 60- 99
--- NOTE | 2022-04-10 15:09 | ED.GENADUL_ITS ---
Discharge Plan Disposition Patient Disposition: Against Medical Advice Discharge Details Clinical Impression: GERD (gastroesophageal reflux disease) Primary Care Provider: Wendy Dias ED Provider: Julian Jauregui Home Meds and New Rx's Prescriptions: Continued betamethasone dipropionate 0.05 % cream 1 applic TP BID PRN (Reason: dermatitis) Qty: 15 3RF Rx Instructions: Affected areas: forearms and lower legs bupropion HCl [Wellbutrin SR] 150 mg tablet sustained-release 12 hr 150 mg PO BID Qty: 180 0RF Rx Instructions: Begin taking at least 1 week before target quit date. Start with 150 mg once daily, then increase to 150 mg twice daily after 3 days. If successful at quitting, continue treatment for at least 12 weeks. tramadol 50 mg tablet 50 mg PO Q6H PRN (Reason: pain) Qty: 20 0RF Rx Instructions: may take along with NSAIDS/Tylenol saw palmetto 450 mg capsule 450 mg PO BID Rx Instructions: give with food (meal/snack) mecobalamin (vitamin B12) 1,000 mcg tablet,chewable 1,000 mcg PO DAILY melatonin 10 mg capsule 10 mg PO HS PRN torizph-kclk-qnrdf-oreg-capryl 100 mg-150 mg- 50 mg-150 mg capsule PO Ultra CoQ10 75 mg capsule 75 mg PO DAILY Supervite (EC) 1 MG tablet,delayed release (DR/EC) 1 mg PO DAILY abdkuokxkwa-[id number]-Gwskrpyfm serr [Osteo Bi-Flex (5-Loxin)] 1 EACH tablet 1 ea PO DAILY Nexium 24HR 20 MG capsule,delayed release(DR/EC) 20 mg PO HS aspirin 81 MG tablet,delayed release (DR/EC) 81 mg PO DAILY coenzyme Q10 [Co Q-10] 10 MG capsule 10 mg PO DAILY omega-3 fatty acids-fish oil 1 EACH capsule 2 ea PO DAILY biotin 800 MCG tablet 800 mcg PO DAILY Panax, Argentine Ginsg/B12/Royl [Ginseng Complex Capsule] 1 EACH capsule 1 ea PO DAILY lisinopril 10 mg tablet See Rx Instructions .ROUTE .COMPLEX Qty: 90 3RF Dose Instruction: TAKE ONE TABLET BY MOUTH EVERY DAY Rx Instructions: TAKE ONE TABLET BY MOUTH EVERY DAY sildenafil 100 mg tablet See Rx Instructions .ROUTE .COMPLEX Qty: 10 6RF Dose Instruction: TAKE 1/2 TABLET BY MOUTH NEEDED FOR SEXUAL ACTIVITY. TAKE 30 MINUTES TO 4 HOURS BEFORE ACTIVITY Rx Instructions: TAKE 1/2 TABLET BY MOUTH NEEDED FOR SEXUAL ACTIVITY. TAKE 30 MINUTES TO 4 HOURS BEFORE ACTIVITY atorvastatin 40 mg tablet 40 mg PO DAILY Qty: 90 3RF Hold Instructions: Home Medication placed on hold at Doctor's office hydrochlorothiazide 25 mg tablet 25 mg PO DAILY Qty: 90 3RF Held ibuprofen [IBU] 600 mg tablet 600 mg PO TID PRN (Reason: pain) Qty: 90 0RF Hold Instructions: Resume on 04/17/22. Discharge Instructions Instructions: GERD (Gastroesophageal Reflux Disease) (ED) Additional Instructions: Please hold your ibuprofen for 1 week's time. Increase your Nexium to twice daily for 1 week. Avoid fatty, fried, tomato sauces, spicy foods. Observe a bland diet for 1 week's time. You have elected to leave prior to receipt of your CT imaging results. These will be available in your patient portal. As we discussed, I will call you if there are any severe or significant results. Return to the ER at any time for reevaluation. Medical Decision Making 56-year-old male with a history of GERD presents from home complaining of 2 days of abdominal bloating, upper abdominal discomfort and noticing 2 episodes of dark tarry stool this morning. He was nauseated but did not not have emesis. He takes a daily aspirin, rare use of ibuprofen. Rare alcohol use. On exam the patient is alert and well-appearing. He has epigastric tenderness present on exam. He has normal rectal tone and slightly guaiac positive dark stool. Differential diagnosis includes gastritis, upper GI bleed, less likely lower GI bleed. Patient IV access established, screening labs obtained and he is referred for imaging studies. The laboratories note a white count of 8, hematocrit 40, platelets 240. INR 0.9. Sodium 138, potassium 3.4, chloride 100, bicarb 28, BUN 19, creatinine 0.9. Magnesium is 1.9. Lipase is negative. CT images: Pending Patient now admits he took some Tums the night before he developed dark stool. This is most consistent with GERD. The patient states that he wishes to leave prior to results of CT imaging. We discussed that this would be AGAINST MEDICAL ADVICE, but that I would call him with any results I felt he needed to know. He will increase his Nexium to twice daily and improve his diet. He is stable and may be discharged AGAINST MEDICAL ADVICE as his wish. He clearly demonstrates decision-making capacity HPI General Mode of arrival: ambulatory . Date/Time Provider Initiated Documentation: 04/10/22 14:51 . Limitations to Documentation: no limitations . Information obtained by: patient . History of Present Illness 56 year old M presents to the emergency department with the chief complaint of Abdominal pain and black stool, bloating, described as moderate, and is localized to the abdomen. Patient reports no radiation. Patient started experiencing this day(s) and it has been intermittent. No relieving factors improve symptom(s), No exacerbating factors reported . Patient notes loss of appetite; denies fever/chills and weakness. Patient did receive the following treatments prior to arrival, none Related Data Home Medications Medication Instructions Recorded Confirmed esomeprazole magnesium 22.3 mg 20 mg PO HS 05/11/14 04/10/22 capsule,delayed release (Nexium 24HR) glucosamine AFv-S1-Dmjyjfpao 1 ea PO DAILY 05/11/14 04/10/22 sabra 1,500 mg-400 unit-100 mg tablet (Osteo Bi-Flex (5-Loxin)) multivit with minerals no.21-folic 1 mg PO DAILY 05/11/14 04/10/22 acid 1 mg tablet,delayed release (Supervite (EC)) aspirin 81 mg tablet,delayed 81 mg PO DAILY 05/27/14 04/10/22 release coenzyme Q10 10 mg capsule (Co 10 mg PO DAILY 05/23/16 04/10/22 Q-10) omega-3 fatty acids-fish oil 300 2 ea PO DAILY 05/23/16 04/10/22 mg-1,000 mg capsule biotin 800 mcg tablet 800 mcg PO DAILY 06/27/16 04/10/22 Panax, Argentine Ginsg/B12/Royl 1 ea PO DAILY 10/11/17 04/10/22 [Ginseng Complex Capsule] betamethasone dipropionate 0.05 % 1 applic topical BID PRN 04/18/18 04/10/22 topical cream dermatitis #15 grams ibuprofen 600 mg tablet (IBU) 600 mg PO TID PRN pain #90 tab-caps 10/29/18 04/10/22 lisinopril 10 mg tablet See Rx Instructions .Route 06/07/21 04/10/22 .COMPLEX #90 tabs sildenafil 100 mg tablet See Rx Instructions .Route 06/09/21 04/10/22 .COMPLEX #10 tabs tramadol 50 mg tablet 50 mg PO Q6H PRN pain #20 tabs 11/14/21 04/10/22 coenzyme Q10 75 mg capsule (Ultra 75 mg PO DAILY 11/28/21 04/10/22 CoQ10) mecobalamin (vitamin B12) 1,000 1,000 mcg PO DAILY 11/28/21 04/10/22 mcg chewable tablet melatonin 10 mg capsule 10 mg PO HS PRN 11/28/21 04/10/22 saw palmetto 450 mg capsule 450 mg PO BID 11/28/21 04/10/22 tumeric 100 mg-elina 150 mg-olive cap PO 11/28/21 03/13/22 50 mg-oreg 150 mg-caprylate capsule atorvastatin 40 mg tablet 40 mg PO DAILY #90 tab-caps 12/28/21 04/10/22 bupropion HCl 150 mg tablet,12 hr 150 mg PO BID smoking cessation 02/01/22 04/10/22 sustained-release (Wellbutrin SR) #180 tabs hydrochlorothiazide 25 mg tablet 25 mg PO DAILY #90 tab-caps 03/23/22 04/10/22 Previous Rx's Medication Instructions Recorded betamethasone dipropionate 0.05 % 1 applic topical BID PRN 04/18/18 topical cream dermatitis #15 grams ibuprofen 600 mg tablet (IBU) 600 mg PO TID PRN pain #90 tab-caps 10/29/18 lisinopril 10 mg tablet See Rx Instructions .Route 06/07/21 .COMPLEX #90 tabs sildenafil 100 mg tablet See Rx Instructions .Route 06/09/21 .COMPLEX #10 tabs tramadol 50 mg tablet 50 mg PO Q6H PRN pain #20 tabs 11/14/21 atorvastatin 40 mg tablet 40 mg PO DAILY #90 tab-caps 12/28/21 bupropion HCl 150 mg tablet,12 hr 150 mg PO BID smoking cessation 02/01/22 sustained-release (Wellbutrin SR) #180 tabs hydrochlorothiazide 25 mg tablet 25 mg PO DAILY #90 tab-caps 03/23/22 Allergies Allergy/AdvReac Type Severity Reaction Status Date / Time poison pranav extract Allergy Unknown Verified 04/10/22 15:00 Yellow jacket Allergy Unknown Sometimes Uncoded 04/10/22 15:00 bothers and sometimes doesn't General Stated Complaint: GI Bleed DOV: 3 Review of Systems Narrative: Black stool x2 this morning, felt nauseated, no emesis. Takes 8 daily aspirin, denies other anticoagulant use and rare ibuprofen. 6 systems reviewed and otherwise negative PFSH All Active Problems (Updated 04/10/22 @ 17:41 by Julian Jauregui MD) Blindness of left eye (Chronic 03/02/14) Body mass index (BMI) exceeds 25 (Chronic 05/05/15) Essential hypertension (Chronic 02/02/15) GERD (gastroesophageal reflux disease) (Chronic 03/02/14) Hyperlipidemia (Chronic 03/02/14) 03/2018 labs: IFG (impaired fasting glucose) (Chronic 12/28/16) Tobacco use disorder (Chronic) Dermatitis (Chronic) 11/2017 [facility] [place] Heavy alcohol use (Acute) Erectile dysfunction (Acute) Bladder cancer (Acute) History of colon polyps (Acute) COVID (Acute ~02/14/22) Anemia (Chronic) Medical History Tendonitis of wrist, left (11/05/14) Tubular adenoma of colon (06/18/14) 2 polyps Surgical History Colonoscopy - MAC (02/26/18) Dr Mariscal, no abnormalities, repeat in 10 years. Hx of cystoscopy Family History Mother Aortic aneurysm Father No problems noted. Sister No problems noted. Sister No problems noted. Brother No problems noted. Brother No problems noted. Brother No problems noted. 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 Pets and animals: No Sexually active: Yes Do you think of yourself as: straight/heterosexual Current gender identity: male What is your relationship status?: never How often do you talk on the phone with friends or family?: once per week How often do you get together with friends or relatives?: twice per week How often do you attend temple or denominational services?: decline to answer Do you belong to any clubs or organized social groups?: no Panel score (0-1 are the most socially isolated patients): 1 What type of physical activity do you participate in: regular exercise and other Details: Active with work on [employer] Duration: 30-45 minutes/day Frequency: daily Gricelda/Temple: Hinduism Special gricelda needs: No Seatbelt use: always Helmet use: Yes Drive intox or ride w/intox bull driver: No Water heater temp set <120 deg: Yes Working smoke detector in home: No Fire extinguisher in home: Yes Carbon monox detector in home: No Do you feel safe at home: Yes Additional Social history: lives alone, unable to assess privately Exam Narrative Exam Narrative: GEN: awake, alert, oriented 3. Pleasant, well groomed, interactive. HEAD: Normocephalic, atraumatic ENT: Mucous membranes moist, oropharynx unremarkable, External ear exam unremarkable EYES: PERRL, EOMI NECK: Full ROM, no CHARMAINE, no menigismus CHEST/RESP: Nontender, clear to auscultation bilateral, no wheeze/rhonchi/rales CARDIOVASCULAR: RRR, no murmur, rub amena. 2+ Rad pulse bilateral ABDOMEN: Soft, tender in epigastrium, no mass. +Bowel sounds, normal rectal tone, guaiac positive dark stool present. No active bleeding or masses. EXT: Full ROM, no edema, no rash Neuro: Grossly normal neurologic exam, conversant, interactive. Psych: Speech fluent, thoughts congruent, affect normal Course Vital Signs Vital signs: Vital Signs Temperature 36.6 C 04/10/22 14:54 Pulse 87 04/10/22 14:54 Respiratory Rate 18 04/10/22 14:54 Blood Pressure 140/98 H 04/10/22 14:54 Pulse Oximetry 96 04/10/22 14:54 Temperature 36.6 C 04/10/22 14:54 Pulse 87 04/10/22 14:54 Respiratory Rate 18 04/10/22 14:54 Respiratory Effort 04/10/22 15:01 Blood Pressure 140/98 H 04/10/22 14:54 Blood Pressure Position Supine 04/10/22 14:54 Pulse Oximetry 96 04/10/22 14:54 Oxygen Delivery Method Room Air 04/10/22 14:54 Oxygen Flow Rate 0 04/10/22 14:54
[2022-04-10 15:10] LABS: Abs Immature Grans 0.04 10^3/uL (0.0-0.06); Absolute Basophil Count 0.06 10^3/uL (0.0-0.2); Absolute Eosinophil Count 0.33 10^3/uL (0.0-0.7); Absolute Lymphocyte Count 3.79 10^3/uL (1.2-3.4); Absolute Monocyte Count 0.85 10^3/uL (0.1-0.8); Absolute Neutrophil Count 3.75 10^3/uL (1.2-6.7); Basophils % 0.7; Eosinophils % 3.7; HCT 40.9 % (40.0-50.0); HGB 14.4 g/dL (13.5-17.5); Immature Grans % 0.5; MCH 31.6 pg (27.0-33.0); MCHC 35.2 % (32.0-36.0); MCV 90 fL (80-95); MPV 10.5 fL (8.0-11.0); Monocytes % 9.6; Neutrophils % 42.5; Platelet Count 240 10^3/uL (130-400); RBC 4.55 10^6/uL (4.36-5.78); RDW 12.5 % (11.8-14.1); RDW-SD 41.3 fL; WBC 8.82 10^3/uL (4.4-10.8)
[2022-04-10] MEDS: Pantoprazole 40 MG VIAL IVP (15:35)
[2022-04-10 15:49] LABS: ALT 35 U/L (16-63); AST 23 U/L (15-37); Albumin 4.3 g/dL (3.4-5.0); Alkaline Phosphatase 78 U/L (46-116); Anion Gap 9.5 mmol/L (3-11); BUN 19 mg/dL (7-18); Bilirubin, Total 0.6 mg/dL (0.2-1.0); CO2 28.5 mmol/L (21.0-32.0); CREATININE 0.9 mg/dL (0.70-1.30); Calcium 9.9 mg/dL (8.5-10.1); Chloride 100 mmol/L (98-107); Glucose 117 mg/dL (74-106); Magnesium 1.9 mg/dL (1.8-2.4); Potassium 3.4 mmol/L (3.5-5.1); Sodium 138 mmol/L (136-145); Total Protein 8.3 g/dL (6.4-8.2)
[2022-04-10 15:50] LABS: INR 0.9 (0.9-1.1); Prothrombin Time 9.3 sec (9.3-11.0)
[2022-04-10 17:16] LABS: Lipase 118 U/L (73-393)
--- NOTE | 2022-04-10 17:25 | DI.CT_ITS ---
Exam(s) CT ABDOMEN PELVIS W EXAM: CT ABDOMEN PELVIS W CLINICAL HISTORY: Epigastric pain. TECHNIQUE: Imaging Protocol: Axial computed tomography images with coronal and sagittal reformatted images were created and reviewed CONTRAST MATERIAL: Intravenous: Omnipaque 350 Contrast volume:100 ml Oral: No COMPARISON: CT CT ABDOMEN PELVIS WO/W from 10/23/2021 FINDINGS: ABDOMEN: Lung Bases: Dependent changes. Liver: Normal density. No measurable mass. Gallbladder and biliary tract: No radiodense calculus or dilation. Pancreas: Normal density, no abnormal calcifications or inflammatory process. Spleen: Normal. Kidneys: Normal size, contour and axis. No radiodense stones or obstructive uropathy. Right renal cy st. No masses seen. Adrenal glands: No masses seen. Abdominal Aorta: Mild dilatation distal abdominal aorta 3.1 cm. Unchanged from prior. Stomach: Not well evaluated, nearly empty. No surrounding inflammation. Small bowel nondilated. Soft tissues: Small fatty containing umbilical hernia. Minimal amount of fat in the left inguinal ca nal. PELVIS: Bladder: No gross wall thickening. No calculi. Previously noted mass no longer seen. Small amount contrast is noted within the bladder. Bowel: Diverticulosis. No obstruction or bowel wall thickening. Appendix normal. Peritoneal cavity: No ascites, collection or mesenteric inflammatory response. Bones: Within normal limits for age. Reproductive organs: Enlarged prostate. Lymph nodes: Unremarkable. Impression: No acute abnormality. Previously noted bladder mass no longer visible. RADIATION DOSE DELIVERED: 867.02mGy.cm Total DLP DATA REPOSITORY: All CT scans at this facility are submitted to the National Radiology Data Registry (NRDR) Dose Index Registry (DIR) with the [employer] (ACR). RADIATION OPTIMIZATION: All CT scans at this facility use at least one of these dose optimization te chniques: automated exposure control; mA and/or kV adjustment per patient size (includes targeted exa ms where dose is matched to clinical indication); or iterative reconstruction.
[2022-04-10] MEDS: Normal Saline - Diluent 50 ML VIAL IV (17:36)
[2022-04-10] MEDS: Omnipaque 350 MG/ML 100 ML BTL IJ (17:37)
--- NOTE | 2022-04-10 18:12 | DI.VRAD_ITS ---
PROCEDURE INFORMATION: Exam: CT Abdomen And Pelvis With Contrast Exam date and time: 04/10/2022 5:25 PM Age: 56 years old Clinical indication: Other: Epigastric pain TECHNIQUE: Imaging protocol: Computed tomography of the abdomen and pelvis with contrast. Radiation optimization: All CT scans at this facility use at least one of these dose optimization techniques: automated exposure control; mA and/or kV adjustment per patient size (includes targeted exams where dose is matched to clinical indication); or iterative reconstruction. Contrast material: OMNIPAQUE 350; Contrast volume: 100 ml; Contrast route: INTRAVENOUS (IV); COMPARISON: CT ABDOMEN PELVIS WO/W 10/23/2021 2:29 PM FINDINGS: Lungs: The visualized lung bases are within normal limits. There is fibrosis and scarring at the lung bases. Heart: The visualized portions of the heart and pericardium are within normal limits. Coronary arteries: There are no coronary artery calcifications. Liver: The liver is within normal limits. There is a small low-attenuation lesion within the right lobe of the liver which is too small to characterize by CT criteria. Gallbladder and bile ducts: The gallbladder is within normal limits. Pancreas: The pancreas is within normal limits. Spleen: The spleen is unremarkable. Adrenal glands: The adrenal glands are unremarkable. Kidneys and ureters: There is a simple midpole right renal cyst measuring approximately 2.4 cm. The left kidney is within normal limits. Stomach and bowel: There is mucosal thickening at the level of the stomach. This could be secondary to gastritis other etiologies are not totally excluded. Clinical correlation is recommended. There are diverticulum of the colon. Appendix: The appendix is visualized and is within normal limits. Intraperitoneal space: Unremarkable. No free air. No significant fluid collection. Vasculature: There are arteriosclerotic changes of the aorta. There is slight dilatation of the infrarenal abdominal aorta measuring up to 3.1 cm. Lymph nodes: No enlarged lymph nodes. Urinary bladder: The urinary bladder is within normal limits. The prostate is enlarged and indents the bladder base. The seminal vesicles are within normal limits. Reproductive: See Urinary bladder finding. Bones/joints: There are degenerative changes of the thoracic and lumbar spines. Soft tissues: There is a small fat containing umbilical hernia. IMPRESSION: 1. Mucosal thickening at the level of the stomach. This could be secondary to gastritis. Other etiologies are not totally excluded. This could be re-evaluated with endoscopy if clinically warranted. 2. Slight fibrosis and scarring at the lung bases. 3. Small low-attenuation lesion within the right lobe of the liver which is too small to characterize by CT criteria. 4. Simple midpole right renal cyst. 5. Arteriosclerotic changes of the aorta. Slight dilatation of the infrarenal abdominal aorta. 6. Enlarged prostate correlation with the patient's PSA is recommended. Dictated and Authenticated by: Mark Keene MD. Ordering:HERMES Jordan MD
== END 2022-04-10 17:53 | disposition left against medical advice (07) ==
PROVIDERS: Emergency Provider Emergency Medicine; PCP Nurse Practitioner Family
DX: K21.9 Gastro-esophageal reflux disease without esophagitis (principal); R19.5 Other fecal abnormalities
CPT/HCPCS: 80053; 83690; 93005; 96374; 99285; 74177; 83735; 85025; 85610; 93010; 99284; J3490

== ENCOUNTER 2022-04-18 04:19 | Outpatient (CLI) | payer OTHER, SELFPAY ==
[2022-04-18 18:58] LABS: PSA, Screening 5.6 ng/mL (<=3.5)
== END 2022-04-18 04:20 | disposition home or self-care (01) ==
LOC: LBO 04:19
PROVIDERS: PCP Nurse Practitioner Family; Visit Provider Nurse Practitioner Family
DX: N40.0 Benign prostatic hyperplasia without lower urinary tract symptoms (principal); Z12.5 Encounter for screening for malignant neoplasm of prostate
CPT/HCPCS: 36415; 84153

== ENCOUNTER 2022-04-18 12:35 | Outpatient (REF) | payer OTHER, SELFPAY ==
[2022-04-19 14:57] LABS: Helicobacter pylori Ag, Feces Negative (Negative)
== END 2022-04-18 12:36 | disposition home or self-care (01) ==
LOC: LBN 12:35
PROVIDERS: PCP Nurse Practitioner Family; Visit Provider Nurse Practitioner Family
DX: K21.9 Gastro-esophageal reflux disease without esophagitis (principal)
CPT/HCPCS: 87338

== ENCOUNTER 2022-05-28 06:40 | Day surgery (SDC) | payer OTHER, SELFPAY ==
--- NOTE | 2022-05-27 20:27 | PDOC.DSDIS_ITS ---
Date of service: 05/28/22 Time of Service: 08:45 Discharge Plan Disposition Patient Disposition: Home Condition: Good Discharge Details Reason For Visit: EGD Attending Provider: Grant Paniagua Primary Care Provider: Wendy Dias Home Meds and New Rx's Prescriptions: Continued ibuprofen [IBU] 600 mg tablet 600 mg PO TID PRN (Reason: pain) Qty: 90 0RF Hold Instructions: Resume on 04/17/22. saw palmetto 450 mg capsule 450 mg PO BID Rx Instructions: give with food (meal/snack) mecobalamin (vitamin B12) 1,000 mcg tablet,chewable 1,000 mcg PO DAILY melatonin 10 mg capsule 10 mg PO HS PRN Ultra CoQ10 75 mg capsule 75 mg PO DAILY omeprazole 20 mg capsule,delayed release(DR/EC) 20 mg PO BID Qty: 180 1RF Rx Instructions: Take 20 mg twice daily at least 30 minutes before first meal Supervite (EC) 1 MG tablet,delayed release (DR/EC) 1 mg PO DAILY [id number] serr [Osteo Bi-Flex (5-Loxin)] 1 EACH tablet 1 ea PO DAILY aspirin 81 MG tablet,delayed release (DR/EC) 81 mg PO DAILY Panax, Vincentian Ginsg/B12/Royl [Ginseng Complex Capsule] 1 EACH capsule 1 ea PO DAILY lisinopril 10 mg tablet See Rx Instructions .ROUTE .COMPLEX Qty: 90 3RF Dose Instruction: TAKE ONE TABLET BY MOUTH EVERY DAY Rx Instructions: TAKE ONE TABLET BY MOUTH EVERY DAY sildenafil 100 mg tablet See Rx Instructions .ROUTE .COMPLEX Qty: 10 6RF Dose Instruction: TAKE 1/2 TABLET BY MOUTH NEEDED FOR SEXUAL ACTIVITY. TAKE 30 MINUTES TO 4 HOURS BEFORE ACTIVITY Rx Instructions: TAKE 1/2 TABLET BY MOUTH NEEDED FOR SEXUAL ACTIVITY. TAKE 30 MINUTES TO 4 HOURS BEFORE ACTIVITY atorvastatin 40 mg tablet 40 mg PO DAILY Qty: 90 3RF Hold Instructions: Home Medication placed on hold at Doctor's office hydrochlorothiazide 25 mg tablet 25 mg PO DAILY Qty: 90 3RF Discharge Instructions Additional Instructions: Duarte, we were able to complete your upper endoscopy today without any difficulty. You had a little bit of bile in your stomach. This is known as bile reflux. I did not see any active signs of inflammation of the stomach I suspect that your omeprazole is doing a good job keeping the inflammation at bay. There are other medications we can add if you continue to experience more frequent episodes of heartburn. I also saw a little bit of irregularity in the connection between your stomach and your esophagus (which is your swallowing plate. This area is called the GE junction. That irregularity is consistent with your diagnosis of gastroesophageal reflux disease. I did not see anything particularly worrisome. I did take some biopsies of your stomach, as well as your GE junction, and when I have the results of those biopsies I will let you know if there is anything different that you need to do. 1. If tolerated, consume a soft, low fiber diet for 1-2 days. [address] Do not drive, drink alcohol, operate machinery, make critical decisions, or do activities that require coordination or balance for 24 hours. 3. You may experience a sore throat for 24 to 48 hours. You may use throat lozenges or gargle with warm salt water to relieve the discomfort. 4. Because air was put into your stomach during the procedure, you may experience some belching. 5. Go directly to the emergency room if you notice any of the following: Develop chills (warm to touch), or if you have a thermometer and your temperature is above 101 Difficulty breathing or difficultly swallowing Persistent vomiting Severe abdominal pain, other than gas cramps Severe chest pain Black, tarry stools Any bleeding ? exceeding one tablespoon 6. Call your physician if the site where your intravenous was started becomes red, swollen, painful, and warm to touch. 7. Your physician has reviewed your pre-procedure medications. Please continue to take those medications as previously ordered. You will be given specific information/education regarding any changes to your medications before leaving. Activity:: Activity as Tolerated Diet:: As Tolerated Discharge Orders Discharge Orders: Discharge Order (Routine); Ordered 05/27/22 Ordered By: Grant Paniagua DS: Diagnosis Discharge Diagnosis (1) GERD (gastroesophageal reflux disease): Status: Chronic Asessment and Plan: Follow-up on biopsy results
--- NOTE | 2022-05-27 20:31 | W.PM.ENDDOP ---
Date of service: 05/28/22 Time of Service: 08:47 Endoscopy Report DATE OF PROCEDURE: 05/28/22 PRE-OP DIAGNOSIS: GERD POST-OP DIAGNOSIS: same PROCEDURE: EGD with biopsies SURGEON: Grant Paniagua ANESTHESIA TYPE: General:No Airway ESTIMATED BLOOD LOSS: 10 PATHOLOGY: other (Biopsies of gastric antrum, body, and GE junction) COMPLICATIONS: None DISPOSITION: same day INDICATIONS: Duarte is a 57-year-old male with longstanding gastroesophageal reflux disease. PROCEDURE START TIME: 08:26 PROCEDURE END TIME: 08:31 FINDINGS: Mild bile reflux. Mild irregularity of the Z-line at 38 cm PROCEDURE DESCRIPTION: After the initiation of monitored anesthetic care, and with the assistance of a bite block, I advanced a standard gastroscope through the mouth past the hypopharynx and into the esophagus.? Under the direct vision of the scope, I advanced down the esophagus into the stomach.? Once I entered the stomach, I performed a brief inspection, followed by retroflexion towards the gastric cardia.? This appeared normal.? After that, I gently advanced the scope around the incisura angularis and examined the pylorus.? There was a small amount of bile reflux across the pylorus without any active signs of inflammation..? Next, I advanced the scope through the pylorus into the duodenum.? The mucosa was pink and healthy appearing.? There were no abnormalities.? I was able to visualize bile draining into the duodenum through the ampulla Vater. ?Next, I began retracting the endoscope.? Perform some random biopsies of the gastric antrum and body.? I then gently desufflated some of the stomach, and withdrew the endoscope into the distal esophagus. There was mild irregularity of the Z-line at 38 cm. I did perform some biopsies of the GE junction.. ?Finally, I withdrew the scope along the length of the esophagus taking great care to examine the entirety of the mucosa.? I did not appreciate any abnormalities.
[2022-05-28 07:10] VITALS: BP 136/98; PULSE 75; RESP 18; TEMP 36.5; O2SAT 97
[2022-05-28] MEDS: Lactated Ringers 1,000 ML 80 ML IV (07:33)
--- NOTE | 2022-05-28 08:10 | ANES.PREOP_ITS ---
General Info Date of Service Date Performed: 05/28/22 Height: 5 ft 8 in Weight: 88.9 kg Body Mass Index (BMI): 29.7 Surgical Procedure: Operation Date: 05/28/22 08:20 Proposed Procedure Side Surgeon p Gastroscopy Grant Paniagua MD Meds Allergies and Home Medications Allergies Allergy/AdvReac Type Severity Reaction Status Date / Time poison pranav extract Allergy Unknown Verified 05/28/22 07:17 Yellow jacket Allergy Unknown Sometimes Uncoded 05/28/22 07:17 bothers and sometimes doesn't Home Medication Medication Instructions Recorded glucosamine [id number]-[id number] 1 ea PO DAILY 05/11/14 sabra 1,500 mg-400 unit-100 mg tablet (Osteo Bi-Flex (5-Loxin)) multivit with minerals no.21-folic 1 mg PO DAILY 05/11/14 acid 1 mg tablet,delayed release (Supervite (EC)) aspirin 81 mg tablet,delayed 81 mg PO DAILY 05/27/14 release Panax, Angolan Ginsg/B12/Royl 1 ea PO DAILY 10/11/17 [Ginseng Complex Capsule] ibuprofen 600 mg tablet (IBU) 600 mg PO TID PRN pain #90 tab-caps 10/29/18 lisinopril 10 mg tablet See Rx Instructions .Route 06/07/21 .COMPLEX #90 tabs sildenafil 100 mg tablet See Rx Instructions .Route 06/09/21 .COMPLEX #10 tabs coenzyme Q10 75 mg capsule (Ultra 75 mg PO DAILY 11/28/21 CoQ10) mecobalamin (vitamin B12) 1,000 1,000 mcg PO DAILY 11/28/21 mcg chewable tablet melatonin 10 mg capsule 10 mg PO HS PRN 11/28/21 saw palmetto 450 mg capsule 450 mg PO BID 11/28/21 atorvastatin 40 mg tablet 40 mg PO DAILY #90 tab-caps 12/28/21 hydrochlorothiazide 25 mg tablet 25 mg PO DAILY #90 tab-caps 03/23/22 omeprazole 20 mg capsule,delayed 20 mg PO BID #180 caps 04/12/22 release Current Visit Medications: Current Medications Generic Name Dose Route Start Last Admin Trade Name Freq PRN Reason Stop Dose Admin Hyoscyamine Sulfate 0.125 mg 05/27/22 20:33 Hyoscyamine 0.125 Mg Sl/Oral/Chew SL DIRECTED PRN Ringer's Solution 1,000 mls @ 80 mls/hr 05/28/22 06:00 05/28/22 07:33 IV 06/24/22 23:59 80 mls/hr INFUSION ANNABELLE Administration IV Miscellaneous Supplies 1 each 05/28/22 06:00 Iv Access IV 06/24/22 23:59 DIRECTED ANNABELLE Ondansetron HCl 4 mg 05/27/22 20:33 Ondansetron 4 Mg/2 Ml Vial IVP Q4H PRN PRN Nausea / Vomiting Sodium Chloride 0 ml 05/28/22 06:00 Normal Saline Flush 10 Ml Syr IV 06/24/22 23:59 PRN PRN Sodium Chloride 0 ml 05/28/22 06:00 Normal Saline 10 Ml Vial IJ 06/24/22 23:59 DIRECTED PRN Sterile Water 0 ml 05/28/22 06:00 Water,Injection,Sterile 10 Ml Vial IJ 06/24/22 23:59 DIRECTED PRN PFSH Active Problems Active Problems: Problem Status Onset Code Elevated PSA R97.20 Lesion of liver K76.9 Blindness of left eye 03/02/14 H54.40 Body mass index (BMI) exceeds 25 05/05/15 Z78.9 Essential hypertension 02/02/15 I10 GERD (gastroesophageal reflux disease) 03/02/14 K21.9 Hyperlipidemia 03/02/14 E78.5 IFG (impaired fasting glucose) 12/28/16 R73.01 Tobacco use disorder F17.200 Dermatitis L30.9 Heavy alcohol use Z78.9 Erectile dysfunction N52.9 Bladder cancer C67.9 History of colon polyps Z86.010 COVID ~02/14/22 U07.1 Anemia D64.9 Medical History Medical History Tendonitis of wrist, left (11/05/14) Tubular adenoma of colon (06/18/14) 2 polyps Medical History Comments:: 05/28/22: last had a cigarette 05/26/22 Surgical History Surgical History Colonoscopy - MAC (02/26/18) Dr Mariscal, no abnormalities, repeat in 10 years. Hx of cystoscopy Tobacco Smoking/Tobacco Use Status: Current every day Tobacco Type: cigarettes Smoking packs per day: 1 Smoking cigarettes per day: 20.0 Years smoked: 40 Smoking pack- years: 40.00 Alcohol Alcohol Intake: current Alcohol intake frequency: 3 or more drinks per day Alcohol type: beer and hard liquor Substance Use Substance use: Never Substance use type: does not use Vital Signs and Lab Results Vital Signs Most Recent Vital Signs in EMR: Most Recent Vital Signs Temp Pulse Resp BP Pulse Ox 36.5 C 75 18 136/98 H 97 05/28/22 07:10 05/28/22 07:10 05/28/22 07:10 05/28/22 07:10 05/28/22 07:10 Lab Results Blood Type / Crossmatch: No Data to Display Complete Blood Count: No Data to Display Complete Metabolic Panel: No Data to Display Liver Function Panel: No Data to Display Coagulation Panel: No Data to Display Cardiac Panel: No Data to Display Arterial Blood Gas: No Data to Display Venous Blood Gas: No Data to Display Pancreas Panel: No Data to Display Thyroid Panel: No Data to Display Infectious Disease: No Data to Display Blood Cultures: No Data to Display Toxicology Panel: No Data to Display Imaging and Studies Imaging and Studies Study information below may be from another EMR and interpreted by another provider. Please see original notes in EMR for more complete details. EKG Summary: Conclusion Sinus rhythm...normal P axis, V-rate 60- 99 Anesthesia Assessment and Plan Anesthesia History Personal History: No History of Anesthesia Complications Family History: No Family History of Anesthesia Complications Exercise Tolerance Exercise Tolerance: Metabolic Equivalents>4 Pertinent Negatives Pertinent Negatives: No Symptoms of GERD (controlled) and No Major Cardiovascular Symptoms or Complaints Cardiac & Pulmonary Exam Cardiac Exam: Normal S1/S2 Heart Sounds Pulmonary Exam: Clear Bilateral Breath Sounds Implantable Cardiac Device Does patient have a Pacemaker or an ICD?: No Airway Exam Known Difficult Airway: No Mallampati Class: 1 Mouth Opening: Normal (> 3cm) Thyromental Distance: Greater than 3 cm Neck Range of Motion: Full ROM Neck Circumference: Normal Teeth Condition: Normal Dentition ASA Classification ASA Score: ASA 2 Emergency Case?: No NPO Status NPO Status: NPO Clears >2 hours, Solids >8 hours Anesthesia Plan Resuscitation Status: Full Code Anesthesia Technique: General Anesthesia Airway Planned: Natural Airway Monitors Used: Standard Monitors
[2022-05-28 08:14] VITALS: BMI 29.7
--- NOTE | 2022-05-28 08:28 | STOM_PTH ---
PATIENT: Duarte Agudelo LOC: [facility] U#:[id number] AGE/SX: 57/M ROOM: RE05/28/[address]: Grant Paniagua MD : 1965 BED: DIS: 05/28/2022 SPEC #: [id number] RECD: 05/28/22 12:38 STATUS: LUZ MARIA RE #: [id number] DEMARIO: 05/28/22 08:[address]: Grant Paniagua DEPT: Surgical Specimen RECD BY: Namrata Jenkins ENTERED: 05/28/22 12:39 SP TYPE: STOMACH OTHR DR: Wendy Dias APRN Tissues: 1 - STOMACH BIOPSY 2 - STOMACH BIOPSY 3 - ESOPHAGUS BIOPSY Procedures: GROSS AND MICRO LEVEL 4 Comments: [id number]
[2022-05-28 08:44] VITALS: BP 126/86; PULSE 76; RESP 16; O2SAT 93
--- NOTE | 2022-05-28 08:56 | W.ANESPOSTOP ---
Postoperative Evaluation Date, Time and Location Date Performed: 05/28/22 Time Performed: 08:56 Patient Location: Day Surgery Unit Vital Signs Most Recent Imported Vital Signs: Most Recent Vital Signs Temp Pulse Resp BP Pulse Ox 36.5 C 76 16 126/86 93 05/28/22 07:10 05/28/22 08:44 05/28/22 08:44 05/28/22 08:44 05/28/22 08:44 Pain Score Most Recent Pain Score: Most Recent Pain Score Pain Level 0 05/28/22 07:10 Assessment Mental Status: Awake (Alert & Oriented to Patient Baseline) Airway and Respiratory Function: Patent airway with normal (patient baseline) respiratory exam Cardiovascular Function: Hemodynamically Stable Hydration Status: Adequately Hydrated Nausea & Vomiting: No Nausea or Vomiting Pain: Pt. Denies Any Pain Peripheral Nerve Block: Patient did not receive a nerve block
[2022-05-28 09:10] VITALS: BP 132/83; PULSE 64; RESP 18; TEMP 36.3; O2SAT 95
== END 2022-05-28 09:18 | disposition home or self-care (01) ==
PROVIDERS: PCP Nurse Practitioner Family; Visit Provider Surgery
PROC: 0DJ68ZZ Inspection of Stomach, Via Natural or Artificial Opening Endoscopic (ICD-10-PCS; CPT 43235; principal; 2022-05-28 08:15)
DX: K21.9 Gastro-esophageal reflux disease without esophagitis (principal)
CPT/HCPCS: 43239; 88305; J2704

== ENCOUNTER 2022-07-05 09:00 | Day surgery (SDC) | payer OTHER, SELFPAY ==
[2022-07-05 09:25] VITALS: BP 144/87; PULSE 73; RESP 18; TEMP 36.6; O2SAT 93
[2022-07-05] MEDS: Lactated Ringers 1,000 ML 80 ML IV (09:40)
--- NOTE | 2022-07-05 10:00 | W.ANESPRE ---
General Info Date of Service Date Performed: 07/05/22 Height: 5 ft 8 in Weight: 88.1 kg Body Mass Index (BMI): 29.5 Surgical Procedure: Operation Date: 07/05/22 10:55 Proposed Procedure Side Surgeon p Transurethral Resection Bladder Tumor Prince Mabry MD s Cystoscopy/Instillation of Mitomycin Prince Mabry MD Meds Allergies and Home Medications Allergies Allergy/AdvReac Type Severity Reaction Status Date / Time poison pranav extract Allergy Unknown Verified 07/05/22 09:38 Yellow jacket Allergy Unknown Sometimes Uncoded 07/05/22 09:38 bothers and sometimes doesn't Home Medication Medication Instructions Recorded glucosamine SOz-S3-Hkhalxffm 1 ea PO DAILY 05/11/14 sabra 1,500 mg-400 unit-100 mg tablet (Osteo Bi-Flex (5-Loxin)) multivit with minerals no.21-folic 1 mg PO DAILY 05/11/14 acid 1 mg tablet,delayed release (Supervite (EC)) aspirin 81 mg tablet,delayed 81 mg PO DAILY 05/27/14 release Panax, Mongolian Ginsg/B12/Royl 1 ea PO DAILY 10/11/17 [Ginseng Complex Capsule] ibuprofen 600 mg tablet (IBU) 600 mg PO TID PRN pain #90 tab-caps 10/29/18 coenzyme Q10 75 mg capsule (Ultra 75 mg PO DAILY 11/28/21 CoQ10) mecobalamin (vitamin B12) 1,000 1,000 mcg PO DAILY 11/28/21 mcg chewable tablet melatonin 10 mg capsule 10 mg PO HS PRN 11/28/21 saw palmetto 450 mg capsule 450 mg PO BID 11/28/21 atorvastatin 40 mg tablet 40 mg PO DAILY #90 tab-caps 12/28/21 hydrochlorothiazide 25 mg tablet 25 mg PO DAILY #90 tab-caps 03/23/22 omeprazole 20 mg capsule,delayed 20 mg PO BID #180 caps 04/12/22 release lisinopril 10 mg tablet See Rx Instructions .Route 05/31/22 .COMPLEX #90 tabs sildenafil 100 mg tablet See Rx Instructions .Route 07/04/22 .COMPLEX #10 tabs Current Visit Medications: Current Medications Generic Name Dose Route Start Last Admin Trade Name Freq PRN Reason Stop Dose Admin Mitomycin 40 mg/ Sodium 0 mg 07/05/22 06:00 Chloride 40 ml BLADIN 07/05/22 18:00 DIRECTED ANNABELLE Ringer's Solution 1,000 mls @ 80 mls/hr 07/05/22 06:00 07/05/22 09:40 IV 08/03/22 23:59 80 mls/hr INFUSION ANNABELLE Administration Cefazolin Sodium/Dextrose 2 gm in 50 mls @ 100 mls/hr 07/05/22 06:00 Ancef Duplex IVPB 08/03/22 23:59 PREOP ANNABELLE IV Miscellaneous Supplies 1 each 07/05/22 06:00 Iv Access IV 08/03/22 23:59 DIRECTED ANNABELLE Sodium Chloride 0 ml 07/05/22 06:00 Normal Saline Flush 10 Ml Syr IV 08/03/22 23:59 PRN PRN Sodium Chloride 0 ml 07/05/22 06:00 Normal Saline 10 Ml Vial IJ 08/03/22 23:59 DIRECTED PRN Sterile Water 0 ml 07/05/22 06:00 Water,Injection,Sterile 10 Ml Vial IJ 08/03/22 23:59 DIRECTED PRN PFSH Active Problems Active Problems: Problem Status Onset Code Elevated PSA R97.20 Lesion of liver K76.9 Blindness of left eye 03/02/14 H54.40 Body mass index (BMI) exceeds 25 05/05/15 Z78.9 Essential hypertension 02/02/15 I10 GERD (gastroesophageal reflux disease) 03/02/14 K21.9 Hyperlipidemia 03/02/14 E78.5 IFG (impaired fasting glucose) 12/28/16 R73.01 Tobacco use disorder F17.200 Dermatitis L30.9 Heavy alcohol use Z78.9 Erectile dysfunction N52.9 Bladder cancer C67.9 History of colon polyps Z86.010 COVID ~02/14/22 U07.1 Anemia D64.9 Medical History Medical History Tendonitis of wrist, left (11/05/14) Tubular adenoma of colon (06/18/14) 2 polyps Medical History Comments:: 05/28/22: last had a cigarette 05/26/22 Surgical History Surgical History Colonoscopy - MAC (02/26/18) Dr Mariscal, no abnormalities, repeat in 10 years. H/O endoscopy (05/28/22) Dr Paniagua Hx of cystoscopy Tobacco Smoking/Tobacco Use Status: Current every day Tobacco Type: cigarettes Smoking packs per day: 1 Smoking cigarettes per day: 20.0 Years smoked: 40 Smoking pack-years: 40.00 Alcohol Alcohol Intake: current Alcohol intake frequency: 3 or more drinks per day Alcohol type: beer and hard liquor Substance Use Substance use: Never Substance use type: does not use Vital Signs and Lab Results Vital Signs Most Recent Vital Signs in EMR: Most Recent Vital Signs Temp Pulse Resp BP Pulse Ox 36.6 C 73 18 144/87 H 93 07/05/22 09:25 07/05/22 09:25 07/05/22 09:25 07/05/22 09:25 07/05/22 09:25 Lab Results Blood Type / Crossmatch: No Data to Display Complete Blood Count: No Data to Display Complete Metabolic Panel: No Data to Display Liver Function Panel: No Data to Display Coagulation Panel: No Data to Display Cardiac Panel: No Data to Display Arterial Blood Gas: No Data to Display Venous Blood Gas: No Data to Display Pancreas Panel: No Data to Display Thyroid Panel: No Data to Display Infectious Disease: No Data to Display Blood Cultures: No Data to Display Toxicology Panel: No Data to Display Imaging and Studies Imaging and Studies Study information below may be from another EMR and interpreted by another provider. Please see original notes in EMR for more complete details. EKG Summary: Conclusion Sinus rhythm...normal P axis, V-rate 60- 99 Anesthesia Assessment and Plan Anesthesia History Personal History: No History of Anesthesia Complications Family History: No Family History of Anesthesia Complications Exercise Tolerance Exercise Tolerance: Metabolic Equivalents>4 Pertinent Negatives Pertinent Negatives: No Symptoms of GERD (well controlled with omeprazole), No Major Cardiovascular Symptoms or Complaints and No Major Pulmonary Symptoms or Complaints Cardiac & Pulmonary Exam Cardiac Exam: Normal S1/S2 Heart Sounds Pulmonary Exam: Clear Bilateral Breath Sounds Implantable Cardiac Device Does patient have a Pacemaker or an ICD?: No Airway Exam Known Difficult Airway: No Mallampati Class: 3 Mouth Opening: Normal (> 3cm) Thyromental Distance: Greater than 3 cm Facial Hair: Full Levi Neck Range of Motion: Full ROM Neck Circumference: Normal Teeth Condition: Normal Dentition ASA Classification ASA Score: ASA 2 Emergency Case?: No NPO Status NPO Status: NPO Clears >2 hours, Solids >8 hours Anesthesia Plan Resuscitation Status: Full Code Anesthesia Technique: General Anesthesia Airway Planned: Natural Airway Monitors Used: Standard Monitors
[2022-07-05 10:08] VITALS: BMI 29.5
--- NOTE | 2022-07-05 11:20 | HPE_ITS ---
Date of service: 07/05/22 Time of Service: 11:20 Assessment and Plan Assessment and plan (1) Bladder cancer: Status: Acute Assessment and plan: For cystoscopy with transurethral resection of bladder tumor and instillation of Mitomycin C into the bladder Qualifiers: Bladder location: unspecified site Qualified Code(s): C67.9 - Malignant neoplasm of bladder, unspecified History of Present Illness History of Present Illness Chief Complaint: Bladder cancer Narrative: Chief complaint: Cancer This is a 57-year-old gentleman who initially presented with a bladder mass.? He underwent transurethral resection and was found to have a high-grade urothelial cell tumor that may be involving the lamina propria.? He was treated with an induction series of intravesical BCG. On follow-up, he had small papillary lesions that were low-grade, noninvasive urothelial cell carcinoma.? He had another recurrance on recent surveillance cystoscopy. He presents for cystocopy, TURBT and instillation of Mitomycin C into the bladder. Review of Systems Narrative: No fevers or chills Loss of vision left eye. No dysphasia No diabetes or thyroid No shortness of breath, cough or hemoptysis No chest pain or palpitations GERD. No hepatitis, ulcers, jaundice No seizures, strokes or peripheral neuropathy No bleeding disorders No gout PFSH All Active Problems Elevated PSA (Acute) Lesion of liver (Acute) Blindness of left eye (Chronic 03/02/14) Body mass index (BMI) exceeds 25 (Chronic 05/05/15) Essential hypertension (Chronic 02/02/15) GERD (gastroesophageal reflux disease) (Chronic 03/02/14) Hyperlipidemia (Chronic 03/02/14) 03/2018 labs: IFG (impaired fasting glucose) (Chronic 12/28/16) Tobacco use disorder (Chronic) Dermatitis (Chronic) 11/2017 [facility] [place] Heavy alcohol use (Acute) Erectile dysfunction (Acute) Bladder cancer (Acute) History of colon polyps (Acute) COVID (Acute ~02/14/22) Anemia (Chronic) Medical History Tendonitis of wrist, left (11/05/14) Tubular adenoma of colon (06/18/14) 2 polyps Surgical History Colonoscopy - MAC (02/26/18) Dr Mariscal, no abnormalities, repeat in 10 years. H/O endoscopy (05/28/22) Dr Paniagua Hx of cystoscopy Family History Mother Aortic aneurysm Father No problems noted. Sister No problems noted. Sister No problems noted. Brother No problems noted. Brother No problems noted. Brother No problems noted. Social History Smoking/Tobacco Use Status: Current every day Tobacco Type: cigarettes Smoking packs per day: 1 Smoking cigarettes per day: 20.0 Years smoked: 40 Smoking pack- years: 40.00 Tobacco: How many years used: 40 Quit status: has quit before Smoking risk assessment performed?: Yes Alcohol Intake: current Alcohol Intake frequency: 3 or more drinks per day Alcohol type: beer and hard liquor Drug use: Never Substance use type: does not use Adopted: No Caregiver/Support person: No Foster care: No Housing: house Number of Children: 1 Communication Needs: None Education Level: vocational Do you need help understanding health information?: Rarely current occupation: [employer] Driver Pets and animals: No Sexually active: Yes Do you think of yourself as: straight/heterosexual Current gender identity: male What is your relationship status?: never How often do you talk on the phone with friends or family?: once per week How often do you get together with friends or relatives?: twice per week How often do you attend mormonism or shinto services?: decline to answer Do you belong to any clubs or organized social groups?: no Panel score (0-1 are the most socially isolated patients): 1 What type of physical activity do you participate in: regular exercise and other Details: Active with work on [employer] Duration: 30-45 minutes/day Frequency: daily Gricelda/Pentecostal: Sikhism Special gricelda needs: No Seatbelt use: always Helmet use: Yes Drive intox or ride w/intox courtesy car driver: No Water heater temp set <120 deg: Yes Working smoke detector in home: No Fire extinguisher in home: Yes Carbon monox detector in home: No Do you feel safe at home: Yes Do you feel safe in your relationship?: Yes Meds Allergies and Home Medications Allergies Allergy/AdvReac Type Severity Reaction Status Date / Time poison pranav extract Allergy Unknown Verified 07/05/22 09:38 Yellow jacket Allergy Unknown Sometimes Uncoded 07/05/22 09:38 bothers and sometimes doesn't Home Medications Medication Instructions Recorded Confirmed Type glucosamine [id number] 1 ea PO DAILY 05/11/14 07/05/22 History sabra 1,500 mg-400 unit-100 mg tablet (Osteo Bi-Flex (5-Loxin)) multivit with minerals no.21-folic 1 mg PO DAILY 05/11/14 07/05/22 History acid 1 mg tablet,delayed release (Supervite (EC)) aspirin 81 mg tablet,delayed 81 mg PO DAILY 05/27/14 07/05/22 History release Panax, Malian Ginsg/B12/Royl 1 ea PO DAILY 10/11/17 07/05/22 History [Ginseng Complex Capsule] ibuprofen 600 mg tablet (IBU) 600 mg PO TID PRN pain #90 tab-caps 10/29/18 07/05/22 Rx coenzyme Q10 75 mg capsule (Ultra 75 mg PO DAILY 11/28/21 07/05/22 History CoQ10) mecobalamin (vitamin B12) 1,000 1,000 mcg PO DAILY 11/28/21 07/05/22 History mcg chewable tablet melatonin 10 mg capsule 10 mg PO HS PRN 11/28/21 07/05/22 History saw palmetto 450 mg capsule 450 mg PO BID 11/28/21 07/05/22 History atorvastatin 40 mg tablet 40 mg PO DAILY #90 tab-caps 12/28/21 07/05/22 Rx hydrochlorothiazide 25 mg tablet 25 mg PO DAILY #90 tab-caps 03/23/22 07/05/22 Rx omeprazole 20 mg capsule,delayed 20 mg PO BID #180 caps 04/12/22 07/05/22 Rx release lisinopril 10 mg tablet See Rx Instructions .Route 05/31/22 07/05/22 Rx .COMPLEX #90 tabs sildenafil 100 mg tablet See Rx Instructions .Route 07/04/22 07/05/22 Rx .COMPLEX #10 tabs Exam Const General: cooperative Neck Neck: supple Resp Effort & Inspection: normal respiratory effort Auscultation: clear to auscultation bilaterally Cardio Rate: regular rate Rhythm: regular rhythm GI Inspection: normal to inspection Palpation: soft and no masses Neuro General: patient alert, patient awake and patient oriented x3 Results Last Vital Signs Temp 36.6 C 07/05/22 09:25 Pulse 73 07/05/22 09:25 Resp 18 07/05/22 09:25 BP 144/87 H 07/05/22 09:25 Pulse Ox 93 07/05/22 09:25 Time Spent Time spent with Patient: <40 minutes Time was spent: other
[2022-07-05] MEDS: ceFAZolin 2 GM/50 ML BAG IVPB (13:18)
[2022-07-05] MEDS: Lidocaine 2% Jelly 6 ML SYR (13:33)
--- NOTE | 2022-07-05 13:45 | BLADDER_PTH ---
PATIENT: Duarte Agudelo LOC: [facility] U#:[id number] AGE/SX: 57/M ROOM: RE07/05/[address]: Prince Mabry MD : [id number] BED: DIS: 07/05/2022 SPEC #: [id number] RECD: 07/05/22 17:40 STATUS: LUZ MARIA RE #: [id number] DEMARIO: 07/05/22 13:[address]: Prince Mabry DEPT: Surgical Specimen RECD BY: Namrata Jenkins ENTERED: 07/05/22 17:40 SP TYPE: Bladder OTHR DR: Wendy Dias APRN Tissues: 1 - BLADDER BIOPSY Procedures: GROSS AND MICRO LEVEL 5 Comments: [id number]
--- NOTE | 2022-07-05 13:51 | W.PM.DSUDISC ---
Date of service: 07/05/22 Time of Service: 13:51 Discharge Plan Disposition Condition: Stable Discharge Details Reason For Visit: cystoscopy with TURBT Attending Provider: Prince Mabry Primary Care Provider: Wendy Dias Home Meds and New Rx's Prescriptions: No Action ibuprofen [IBU] 600 mg tablet 600 mg PO TID PRN (Reason: pain) Qty: 90 0RF Hold Instructions: Resume on 04/17/22. saw palmetto 450 mg capsule 450 mg PO BID Rx Instructions: give with food (meal/snack) mecobalamin (vitamin B12) 1,000 mcg tablet,chewable 1,000 mcg PO DAILY melatonin 10 mg capsule 10 mg PO HS PRN Ultra CoQ10 75 mg capsule 75 mg PO DAILY omeprazole 20 mg capsule,delayed release(DR/EC) 20 mg PO BID Qty: 180 1RF Rx Instructions: Take 20 mg twice daily at least 30 minutes before first meal Supervite (EC) 1 MG tablet,delayed release (DR/EC) 1 mg PO DAILY [id number] serr [Osteo Bi-Flex (5-Loxin)] 1 EACH tablet 1 ea PO DAILY aspirin 81 MG tablet,delayed release (DR/EC) 81 mg PO DAILY Panax, [place]ian Ginsg/B12/Royl [Ginseng Complex Capsule] 1 EACH capsule 1 ea PO DAILY atorvastatin 40 mg tablet 40 mg PO DAILY Qty: 90 3RF Hold Instructions: Home Medication placed on hold at Doctor's office hydrochlorothiazide 25 mg tablet 25 mg PO DAILY Qty: 90 3RF lisinopril 10 mg tablet See Rx Instructions .ROUTE .COMPLEX Qty: 90 3RF Dose Instruction: TAKE ONE TABLET BY MOUTH EVERY DAY Rx Instructions: TAKE ONE TABLET BY MOUTH EVERY DAY sildenafil 100 mg tablet See Rx Instructions .ROUTE .COMPLEX Qty: 10 6RF Dose Instruction: TAKE 1/2 TABLET BY MOUTH NEEDED FOR SEXUAL ACTIVITY. TAKE 30 MINUTES TO 4 HOURS BEFORE ACTIVITY Rx Instructions: TAKE 1/2 TABLET BY MOUTH NEEDED FOR SEXUAL ACTIVITY. TAKE 30 MINUTES TO 4 HOURS BEFORE ACTIVITY Discharge Instructions Additional Instructions: leave greene catheter clamped with Mitomycin C in bladder - after 1 hour, unclamp and drain bladder then remove greene unclamp, drain bladder and remove catheter sooner if significant pain followup @ 2 weeks to review surgical pathology Activity:: Activity as Tolerated Shower/Bathe:: 24 hours Diet:: As Tolerated DS: Diagnosis Discharge Diagnosis (1) Bladder cancer: Status: Acute
--- NOTE | 2022-07-05 13:54 | ROE_ITS ---
Date of service: 07/05/22 Time of Service: 13:54 Operative Note Operative Note DATE OF PROCEDURE: 07/05/22 PRE-OP DIAGNOSIS: Bladder cancer POST-OP DIAGNOSIS: same PROCEDURE: cystoscopy, transurethral resection bladder tumor, instillation of Mitomycin C into bladder SURGEON: Prince Mabry ANESTHESIA TYPE: Local By Surgeon and General:No Airway Refer to Anesthesia Record ESTIMATED BLOOD LOSS: 5 PATHOLOGY: other (bladder tumor) COMPLICATIONS: None Patient was transported to: same day Patient's condition: stable Implants: 16 Turkish greene with 10 cc sterile water in balloon 40 mg Mitomycin C in 40 mL solution in bladder Indications: This is a 57-year-old gentleman who has a history of high-grade urothelial cell carcinoma of the bladder. He was treated with transurethral resection along with an induction series of intravesical BCG. On follow-up, he has had low-grade tumor recurrences. At the time of his most recent surveillance cystoscopy, we found multiple small papillary lesions up towards the dome. He presents now for transurethral resection and instillation of Mitomycin-C into the bladder. Findings: multiple small papillary lesions at dome of bladder (all less than 2 cm) Procedure Description: The patient was brought to the operating room on 07/05/2022. He was given preoperative antibiotics. After successful induction of general anesthesia, he was placed in the dorsal lithotomy position. 2% Xylocaine jelly was instilled into the urethra to act as a local anesthetic. A 24 Turkish resectoscope sheath was passed through the urethra into the bladder. The bladder was inspected using a 30 degree lens. The pendulous, bulbar and membranous urethra's appeared normal with no strictures. The prostatic urethra showed no papillary lesions on the mucosa. The bladder neck was entered and the bladder mucosa was inspected. A large scar was seen on the right side of the bladder and the right ureteral orifice was open at rest from the previous scar. No papillary lesions were seen adjacent to the scar, but up toward the dome of the bladder, 3 papillary lesions were seen. An additional papillary lesion was seen on the posterior bladder wall. Each of these lesions measured less than 2 cm in largest dimension. Each lesion was then resected using an [employer] resectoscope and bipolar cautery. The resected tissue was evacuated and sent to pathology for permanent section. The resection sites were then cauterized using the coagulation current. Once hemostasis had been obtained, the bladder was filled with irrigant. The resectoscope was removed and an 18 Turkish Greene catheter was passed through the urethra into the bladder. The catheter balloon was inflated with 10 cc of sterile water. Once the bladder had fully drained, a solution containing 40 mg of Mitomycin-C mixed in 40 mL of dilute was instilled into the bladder. The catheter was then clamped. We plan on allowing the solution to remain in place for 1 to 2 hours in the day surgery unit before the catheter will be removed. The patient tolerated the procedure well with no complications.
[2022-07-05 14:00] VITALS: BP 125/94; PULSE 71; RESP 16; TEMP 36.3; O2SAT 92
[2022-07-05 14:30] VITALS: BP 119/91; PULSE 57; RESP 16; TEMP 36.5; O2SAT 96
[2022-07-05] MEDS: Phenazopyridine 200 MG TAB PO (14:38)
--- NOTE | 2022-07-05 15:20 | W.ANESPOSTOP ---
Postoperative Evaluation Date, Time and Location Date Performed: 07/05/22 Time Performed: 15:21 Patient Location: Day Surgery Unit Vital Signs Most Recent Imported Vital Signs: Most Recent Vital Signs Temp Pulse Resp BP Pulse Ox 36.5 C 57 L 16 119/91 H 96 07/05/22 14:30 07/05/22 14:30 07/05/22 14:30 07/05/22 14:30 07/05/22 14:30 Pain Score Most Recent Pain Score: Most Recent Pain Score Pain Level 0 07/05/22 14:30 Assessment Mental Status: Awake (Alert & Oriented to Patient Baseline) Airway and Respiratory Function: Patent airway with normal (patient baseline) respiratory exam Cardiovascular Function: Hemodynamically Stable Hydration Status: Adequately Hydrated Nausea & Vomiting: No Nausea or Vomiting Pain: Pt. Denies Any Pain Peripheral Nerve Block: Patient did not receive a nerve block
== END 2022-07-05 15:28 | disposition home or self-care (01) ==
PROVIDERS: PCP Nurse Practitioner Family; Visit Provider Urology
PROC: 0TBB8ZZ Excision of Bladder, Via Natural or Artificial Opening Endoscopic (ICD-10-PCS; CPT 52234; principal; 2022-07-05 10:45)
PROC: (CPT 52234; 2022-07-05 10:45)
DX: C67.4 Malignant neoplasm of posterior wall of bladder (principal); C67.1 Malignant neoplasm of dome of bladder
CPT/HCPCS: 52234; 51720; 88305; 88307; J0690; J1885; J2250; J2405; J9280

== ENCOUNTER 2022-07-30 18:51 | Outpatient (REF) | payer OTHER, SELFPAY ==
[2022-07-30 18:08] LABS: PSA, Diagnostic 2.7 ng/mL (<=3.5)
== END 2022-07-30 18:52 | disposition home or self-care (01) ==
LOC: LBN 18:51
PROVIDERS: PCP Nurse Practitioner Family; Visit Provider Nurse Practitioner Gerontology
DX: R97.20 Elevated prostate specific antigen [PSA] (principal)
CPT/HCPCS: 84153

== ENCOUNTER 2022-10-16 03:17 | Outpatient (CLI) | payer OTHER, SELFPAY ==
--- NOTE | 2022-10-16 07:15 | DI.MRI_ITS ---
Exam(s) MR ABDOMEN WO/W EXAM: MR ABDOMEN WO/W CLINICAL HISTORY: 6 mo f/u incidental liver lesion, HX OF CANCER, K76.9 TECHNIQUE: Multiplanar multisequence MRI of the Abdomen was performed. CONTRAST MATERIAL: IV Contrast: 17 mL of Dotarem contrast administered. COMPARISON: CT CT ABDOMEN PELVIS WO/W from 10/23/[address] ABDOMEN PELVIS W from 04/10/2022 FINDINGS: Liver: Several tiny cysts. No follow-up recommended. No suspicious masses. Pancreas: Unremarkable. Gallbladder and Bile Ducts: Unremarkable. Adrenals: Unremarkable. Kidneys: Bilateral cysts. No suspicious masses. No follow-up recommended. Spleen: Unremarkable. Aorta: Stable mild dilatation of distal aorta, 2.8 cm. Soft Tissues: Unremarkable. Bone: Unremarkable. Lymph Nodes: Unremarkable. IMPRESSION: Liver lesions are consistent tiny cysts. No further follow-up recommended. DATA REPOSITORY:
[2022-10-16 09:05] LABS: Abs Immature Grans 0.02 10^3/uL (0.0-0.06); Absolute Basophil Count 0.04 10^3/uL (0.0-0.2); Absolute Eosinophil Count 0.23 10^3/uL (0.0-0.7); Absolute Lymphocyte Count 2.72 10^3/uL (1.2-3.4); Absolute Monocyte Count 0.61 10^3/uL (0.1-0.8); Absolute Neutrophil Count 2.45 10^3/uL (1.2-6.7); Basophils % 0.7; Eosinophils % 3.8; HCT 38.9 % (40.0-50.0); HGB 13.5 g/dL (13.5-17.5); Immature Grans % 0.3; Lymphocytes % 44.8; MCH 32.1 pg (27.0-33.0); MCHC 34.7 % (32.0-36.0); MCV 92 fL (80-95); MPV 9.8 fL (8.0-11.0); Neutrophils % 40.4; Platelet Count 204 10^3/uL (130-400); RBC 4.21 10^6/uL (4.36-5.78); RDW 12.1 % (11.8-14.1); RDW-SD 41.1 fL; WBC 6.07 10^3/uL (4.4-10.8)
[2022-10-16 09:17] LABS: CREATININE 0.8 mg/dL (0.70-1.30); Estimated GFR 101.95 (mL/min/1.73m2)
[2022-10-16] MEDS: Normal Saline - Diluent 50 ML VIAL 25 ML IJ (09:34)
[2022-10-16] MEDS: Gadoterate meglumine 20 ML VIAL 17 ML IVP (09:45)
[2022-10-16 09:56] LABS: Calculated LDL 150 mg/dL (<100); Cholesterol 230 mg/dL (<200); HDL Cholesterol 55 mg/dL (40-60); Triglyceride 126 mg/dL (<150)
[2022-10-16 10:03] LABS: Hemoglobin A1C 5.8 % (<5.7)
== END 2022-10-16 03:37 ==
LOC: DI 03:19
PROVIDERS: PCP Nurse Practitioner Family; Visit Provider Nurse Practitioner Family
DX: Z51.81 Encounter for therapeutic drug level monitoring (principal); R73.01 Impaired fasting glucose; D64.9 Anemia, unspecified; E78.5 Hyperlipidemia, unspecified; K76.9 Liver disease, unspecified; Z85.9 Personal history of malignant neoplasm, unspecified
CPT/HCPCS: 74183; 80061; 82565; 83036; 85025

== ENCOUNTER → 2022-12-07 14:20 | Outpatient (CLI) | payer OTHER, SELFPAY ==
--- NOTE | 2022-12-07 10:15 | DI.MRI_ITS ---
Exam(s) MR UPPER JOINT RT WO EXAM: MR UPPER JOINT RT WO CLINICAL HISTORY: ? proximal biceps tear S46.211A STRAIN OF MUSCLE. TECHNIQUE: Multiplanar multisequence MRI was performed. COMPARISON: None. FINDINGS: BONES: There is no fracture or contusion pattern. JOINTS:The acromioclavicular joint shows mild degenerative changes and a small amount of fluid. The glenohumeral joint shows some fluid which extends into the subcoracoid bursa and anterior to the subs capularis muscle.. TENDONS: Supraspinatus: Unremarkable. Infraspinatus: Unremarkable. Subscapularis: Unremarkable. Teres Minor: Unremarkable. Biceps and Marshall: The long head of the biceps tendon is not seen superiorly at the anchor or within the upper groove. On more inferior images, the biceps tendon is found to be retracted and surrounded by fluid. Some fluid seen between the adjacent muscles. MUSCLES: Simple lipoma in the biceps muscle measuring 3.8 cm in length by 1.8 cm transverse by 2.4 cm AP. GLENOID LABRUM: Unremarkable on this noncontrast examination. SOFT TISSUES: Unremarkable. IMPRESSION: Full-thickness tear of the superior biceps tendon which is coiled and retracted inferiorly. Small simple lipoma in the biceps muscle. DATA REPOSITORY:
== END ==
PROVIDERS: PCP Nurse Practitioner; Visit Provider Student in an Organized Health Care Education/Training Program
DX: M75.121 Complete rotator cuff tear or rupture of right shoulder, not specified as traumatic (principal)
CPT/HCPCS: 73221

== ENCOUNTER 2022-12-13 11:46 | Day surgery (SDC) | payer OTHER, SELFPAY ==
[2022-12-13] VITALS (19 sets, daily range): BP systolic 111–180; BP diastolic 80–105; PULSE 63–87; RESP 13–24; TEMP 36.4–37.2; O2SAT 67–98; BMI 28.0
--- NOTE | 2022-12-13 07:30 | ROE_ITS ---
Date of service: 12/13/22 Time of Service: 16:00 Operative Note Operative Note DATE OF PROCEDURE: 12/13/22 PRE-OP DIAGNOSIS: Right proximal biceps rupture POST-OP DIAGNOSIS: same PROCEDURE: Right open biceps tenodesis, CPT# 88734. This involved reattaching the long head of the biceps tendon to the proximal humerus in the sub-pectoral area of the bicipital groove at the correct tension. SURGEON: Eduardo France MACHINE CLOTH MEASURER: Quentin Mcmillan ANESTHESIA TYPE: Local By Surgeon, General LMA/ETT and Primary Nerve Block Refer to Anesthesia Record ESTIMATED BLOOD LOSS: 5 PATHOLOGY: none sent COMPLICATIONS: None Patient was transported to: PACU Patient's condition: stable Implants: Arthrex Unicortical Proximal Biceps Tenodesis Button Indications: The patient was diagnosed with the above conditions and appropriately indicated for surgical intervention. Please see complete medical record for details. Findings: Exam under anesthesia: Obvious biceps deformity with distal Russell and palpable retracted long head biceps tendon in about the mid arm Procedure Description: In the operating room, general anesthesia was induced. The patient was positioned semi-? recumbent in the beachchair position. All bony prominences were well-padded. Preoperative antibiotics were administered. The shoulder and arm were prepped and draped in the usual sterile fashion. Care was taken to cover the majority of the shoulder, armpit, and arm with Ioban. The correct patient, procedure, and side of the procedure were all verified prior to incision. Based on the MRI findings, the retracted biceps tendon was marked about 15 cm distal to the acromion. A tendon stump could be palpated in this region. 20 cc of 0.25% bupivacaine with epinephrine was infiltrated about a 4 cm longitudinal incision extending from the inferior margin of the pectoralis major tendon towards the retracted biceps tendon over the medial anterior proximal arm. Blunt and sharp dissection were used to expose the bicipital groove, there was scar versus healing remnant present, which was followed distally and blunt dissection continued to expose a coiled scarred ball of the retracted long head of the biceps tendon. This tendon was brought out of the wound and kept off the skin. It was uncoiled and scar tendon was removed. The correct location for sub-pectoral fixation was localized accepting a slightly more distal position at the distal aspect of the pectoralis major accounting for the tendon retraction in this rupture setting. The site was prepped with a rasp and then drilled with a 3.2 mm drill pin in a unicortical fashion. Using a fiber loop suture the tendon was prepped from the musculotendinous junction a few centimeters proximal. The last stitch was locked to provide added security and additional tendon over the fixation site. The excess tendon was amputated. The free suture ends were then passed through the unicortical button implant. The drill pin was removed and the implant was placed into the humeral intramedullary canal. The button was flipped and the sutures were tensioned bringing the tendon down to bone. Tension and fixation were then tested and found to be appr opriate. The free ends of the suture were were tied compressing tendon to bone. The wound was copiously irrigated with normal saline. Subcutaneous tissue was closed using 3-0 Monocryl in a buried interrupted fashion. Skin was closed using 3-0 Monocryl in a buried subcuticular running fashion. Skin glue was applied over the incision. A small Mepilex Band-Aid was applied over the incision. The patient tolerated anesthesia and the procedure without complication and was transferred to the recovery room in a stable condition.
--- NOTE | 2022-12-13 07:30 | W.PM.DSUDISC ---
Date of service: 12/13/22 Time of Service: 17:00 Discharge Plan Disposition Patient Disposition: Home Condition: Stable Discharge Details Attending Provider: Eduardo France Primary Care Provider: Yulissa Elam Home Meds and New Rx's Prescriptions: New naproxen 250 mg tablet 250 - 500 mg PO BID PRNQty: 30 0RF Rx Instructions: take with a meal oxycodone 5 mg tablet 5 - 10 mg PO Q4H MDD 30 mg PRN (Reason: moderate to severe pain) Qty: 9 0RF Continued ketoconazole 2 % cream 1 applic topical BID Qty: 60 3RF mecobalamin (vitamin B12) 1,000 mcg tablet,chewable 1,000 mcg PO DAILY melatonin 10 mg capsule 10 mg PO HS PRN omeprazole 20 mg capsule,delayed release(DR/EC) 20 mg PO DAILY Qty: 90 1RF Rx Instructions: Take 20 mg daily at least 30 minutes before first meal triamcinolone acetonide 0.1 % cream 1 applic Topical 2-4 times daily PRN Qty: 30 1RF Rx Instructions: Dispense 1 80G tube; Apply thin film to affected area (thorax, lower legs) 2-4 times daily until resolution Supervite (EC) 1 MG tablet,delayed release (DR/EC) 1 mg PO DAILY [id number] serr [Osteo Bi-Flex (5-Loxin)] 1 EACH tablet 1 ea PO DAILY aspirin 81 MG tablet,delayed release (DR/EC) 81 mg PO DAILY Panax, Cameroonian Ginsg/B12/Royl [Ginseng Complex Capsule] 1 EACH capsule 1 ea PO DAILY atorvastatin 40 mg tablet 40 mg PO DAILY Qty: 90 3RF Hold Instructions: Home Medication placed on hold at Doctor's office hydrochlorothiazide 25 mg tablet 25 mg PO DAILY Qty: 90 3RF sildenafil 100 mg tablet See Rx Instructions .ROUTE .COMPLEX Qty: 10 6RF Dose Instruction: TAKE 1/2 TABLET BY MOUTH NEEDED FOR SEXUAL ACTIVITY. TAKE 30 MINUTES TO 4 HOURS BEFORE ACTIVITY Rx Instructions: TAKE 1/2 TABLET BY MOUTH NEEDED FOR SEXUAL ACTIVITY. TAKE 30 MINUTES TO 4 HOURS BEFORE ACTIVITY lisinopril 10 mg tablet 10 mg PO DAILY acetaminophen 500 mg Capsule 500 mg PO PRN PRN Discontinued ibuprofen [IBU] 600 mg tablet 600 mg PO TID PRN (Reason: pain) Qty: 90 0RF Hold Instructions: Resume on 04/17/22. Discharge Instructions Additional Instructions: Surgery: Right shoulder open biceps tenodesis (proximal rupture repair) Activity: You should gradually increase range of motion motion and use of your shoulder, elbow, wrist and hand. You may use your arm for all regular activities while protecting the biceps repair. Immediate active elbow flexion okay. Do not lift more than a coffee for 6 weeks. Avoid any weighted elbow flexion or resisted supination for 6 weeks. Concentric strengthening after 2 months, eccentric after 3 months. No heavy lifting for about 2-3 months. You may use the sling whenever you are out of the house for a few weeks. At home it is best to remove the sling and rest the arm on a pillow at your side or support the operative side with your other hand. A physical therapy prescription will be provided in the office at follow-up if needed. Prescriptions: Naproxen 250 mg take 1-2 every 12 hours with a meal as needed for moderate pain Oxycodone 5 mg take 1-2 every 4-6 hours as needed for severe pain You may use [id number] Tylenol (acetaminophen) as needed for mild pain. These pain medications may be taken all at once or in different combinations as needed. Also, recommend Colace (docusate) as a stool softener as surgery and pain medicine cause constipation. You may try tijk-zpx-lxdohtd diphenhydramine (Benadryl) 25-50 mg nightly as a sleep aid Dressings: Remove shoulder bandage after 3 days. Leave the sticky Steri-Strips in place until they fall off or remove them after you shower. Cover the incisions with Band-Aids or leave them open to air. [The biceps bandage (inside upper arm) is glued on separately. You may leave this one on a few days longer if it is difficult to remove. There is also glue underneath this bandage that can be left in place until it peels off.] You may shower after 5 days. Follow-up: 10-[address] France You may take off the leg compression stockings this evening at home. You may also leave them on a few days longer if you have a history of leg swelling or edema. Let us know right away if you develop any redness, drainage, fevers, chest pain, or trouble breathing. Do not drink alcohol or drive for at least 24 hours after anesthesia. Please call the office during business hours with any questions or concerns. Discharge Orders Discharge Orders: Discharge Order (Routine); Ordered 12/13/22 Ordered By: Eduardo France DS: Diagnosis Discharge Diagnosis (1) Rupture of right proximal biceps tendon: Status: Acute
--- NOTE | 2022-12-13 13:25 | ANES.PREOP_ITS ---
General Info Date of Service Date Performed: 12/13/22 Height: 5 ft 8 in Weight: 83.8 kg Body Mass Index (BMI): 28.0 Surgical Procedure: Operation Date: 12/13/22 14:40 Proposed Procedure Side Surgeon p Shoulder Bicep Tenodesis Right Eduardo France MD Meds Allergies and Home Medications Allergies Allergy/AdvReac Type Severity Reaction Status Date / Time poison pranav extract Allergy Unknown Verified 12/13/22 13:23 Yellow jacket Allergy Unknown Sometimes Uncoded 12/13/22 13:23 bothers and sometimes doesn't Home Medication Medication Instructions Recorded glucosamine OCf-H0-Vfhhmxaid 1 ea PO DAILY 05/11/14 sabra 1,500 mg-400 unit-100 mg tablet (Osteo Bi-Flex (5-Loxin)) multivit with minerals no.21-folic 1 mg PO DAILY 05/11/14 acid 1 mg tablet,delayed release (Supervite (EC)) aspirin 81 mg tablet,delayed 81 mg PO DAILY 05/27/14 release Panax, [place] Ginsg/B12/Royl 1 ea PO DAILY 10/11/17 [Ginseng Complex Capsule] ibuprofen 600 mg tablet (IBU) 600 mg PO TID PRN pain #90 tab-caps 10/29/18 mecobalamin (vitamin B12) 1,000 1,000 mcg PO DAILY 11/28/21 mcg chewable tablet melatonin 10 mg capsule 10 mg PO HS PRN 11/28/21 atorvastatin 40 mg tablet 40 mg PO DAILY #90 tab-caps 12/28/21 hydrochlorothiazide 25 mg tablet 25 mg PO DAILY #90 tab-caps 03/23/22 sildenafil 100 mg tablet See Rx Instructions .Route 07/04/22 .COMPLEX #10 tabs omeprazole 20 mg capsule,delayed 20 mg PO DAILY #90 caps 07/27/22 release triamcinolone acetonide 0.1 % 1 applic topical 2-4 times daily 07/27/22 topical cream PRN #30 grams ketoconazole 2 % topical cream 1 applic topical BID bilateral 12/03/22 axillary rash #60 grams acetaminophen 500 mg capsule 500 mg PO PRN PRN 12/13/22 lisinopril 10 mg tablet 10 mg PO DAILY 12/13/22 Current Visit Medications: Current Medications Generic Name Dose Route Start Last Admin Trade Name Freq PRN Reason Stop Dose Admin Ringer's Solution 1,000 mls @ 30 mls/hr 12/13/22 06:00 IV 12/13/22 23:59 INFUSION ANNABELLE Cefazolin Sodium/Dextrose 2 gm in 50 mls @ 100 mls/hr 12/13/22 06:00 Ancef Duplex IVPB 12/13/22 23:59 PREOP ANNABELLE IV Miscellaneous Supplies 1 each 12/13/22 06:00 Iv Access IV 12/13/22 23:59 DIRECTED ANNABELLE Oxycodone HCl 0 mg 12/13/22 07:30 Oxycodone 5 Mg Tab PO 01/12/23 07:29 Q3H PRN PRN Pain Sodium Chloride 0 ml 12/13/22 06:00 Normal Saline Flush 10 Ml Syr IV 12/13/22 23:59 PRN PRN Sodium Chloride 0 ml 12/13/22 06:00 Normal Saline 10 Ml Vial IJ 12/13/22 23:59 DIRECTED PRN Sterile Water 0 ml 12/13/22 06:00 Water,Injection,Sterile 10 Ml Vial IJ 12/13/22 23:59 DIRECTED PRN PFSH Active Problems Active Problems: Problem Status Onset Code Rupture of right proximal biceps tendon 11/30/22 S46.211A Elevated PSA R97.20 Blindness of left eye 03/02/14 H54.40 Body mass index (BMI) exceeds 25 05/05/15 Z78.9 Essential hypertension 02/02/15 I10 GERD (gastroesophageal reflux disease) 03/02/14 K21.9 Hyperlipidemia 03/02/14 E78.5 IFG (impaired fasting glucose) 12/28/16 R73.01 Tobacco use disorder F17.200 Dermatitis L30.9 Heavy alcohol use Z78.9 Erectile dysfunction N52.9 History of colon polyps Z86.010 Anemia D64.9 Medical History Medical History Bladder cancer COVID (~02/14/22) Lesion of liver 10/2022 f/u CT: tiny cysts, no further f/u needed Tendonitis of wrist, left (11/05/14) Tubular adenoma of colon (06/18/14) 2 polyps Medical History Comments:: 05/28/22: last had a cigarette 05/26/22 Surgical History Surgical History Colonoscopy - MAC (02/26/18) Dr Mariscal, no abnormalities, repeat in 10 years. H/O endoscopy (05/28/22) Dr Paniagua Hx of cystoscopy Tobacco Smoking/Tobacco Use Status: Former Tobacco Use Alcohol Alcohol Intake: current Alcohol intake frequency: 3 or more drinks per day Alcohol type: beer and hard liquor Substance Use Substance use: Never Substance use type: does not use Details: alcohol t-1 at 2000 hours Vital Signs and Lab Results Vital Signs Most Recent Vital Signs in EMR: Most Recent Vital Signs Temp Pulse Resp BP Pulse Ox 36.4 C L 78 16 164/96 H 98 12/13/22 12:45 12/13/22 12:45 12/13/22 12:45 12/13/22 12:45 12/13/22 12:45 Lab Results Blood Type / Crossmatch: No Data to Display Complete Blood Count: No Data to Display Complete Metabolic Panel: No Data to Display Liver Function Panel: No Data to Display Coagulation Panel: No Data to Display Cardiac Panel: No Data to Display Arterial Blood Gas: No Data to Display Venous Blood Gas: No Data to Display Pancreas Panel: No Data to Display Thyroid Panel: No Data to Display Infectious Disease: No Data to Display Blood Cultures: No Data to Display Toxicology Panel: No Data to Display Imaging and Studies Imaging and Studies Study information below may be from another EMR and interpreted by another trever villasenor. Please see original notes in EMR for more complete details. EKG Summary: Conclusion Sinus rhythm...normal P axis, V-rate 60- 99 Anesthesia Assessment and Plan Anesthesia History Personal History: No History of Anesthesia Complications Family History: No Family History of Anesthesia Complications Exercise Tolerance Exercise Tolerance: Metabolic Equivalents>4 Pertinent Negatives Pertinent Negatives: No Symptoms of GERD, No Major Cardiovascular Symptoms or Complaints and No Major Pulmonary Symptoms or Complaints Cardiac & Pulmonary Exam Cardiac Exam: Normal S1/S2 Heart Sounds Pulmonary Exam: Clear Bilateral Breath Sounds Implantable Cardiac Device Does patient have a Pacemaker or an ICD?: No Airway Exam Known Difficult Airway: No Mallampati Class: 3 Mouth Opening: Normal (> 3cm) Thyromental Distance: Greater than 3 cm Neck Range of Motion: Full ROM Neck Circumference: Normal Teeth Condition: Normal Dentition ASA Classification ASA Score: ASA 2 Emergency Case?: No NPO Status NPO Status: NPO Clears >2 hours, Solids >8 hours Anesthesia Plan Resuscitation Status: Full Code Anesthesia Technique: General Anesthesia Airway Planned: Endotracheal Tube Pain Management: Surgeon and patient request nerve block Monitors Used: Standard Monitors
[2022-12-13] MEDS: Lactated Ringers 1,000 ML 30 ML IV (13:51)
[2022-12-13] MEDS: ceFAZolin 2 GM/50 ML BAG IVPB (14:56)
--- NOTE | 2022-12-13 15:15 | W.ANESNERVE ---
Nerve Block Single Injection Procedure Date and Time Date Performed: 12/13/22 Procedure Start: 14:22 Location Where Procedure Performed Procedure Location: Day Surgery Unit Reason Performed: Postoperative Analgesia Requesting Provider: Eduardo France Timeout Performed Timeout Performed: Yes Monitoring Used ECG, Blood Pressure, SpO2 and See EMR for corresponding vital signs Sterility Sterility: Hand Hygiene, Surgical Cap, Surgical Mask, Sterile Gloves and Chlorhexidine Sedation Given During Procedure Sedation Given (Indicate Dose Given): Versed IV Dose:: 2mg Patient Mental Status Patient Mental Status: Sedate with meaningful communication Nerve Block 1st Nerve Block: Laterality: Right Block Type: Supraclavicular Ultrasound Image Saved?: Yes Needle / Catheter Used: 100mm SonoPlex II Local Anesthetic Bolus (Indicate Dose Given): Lidocaine used for local infiltration of skin, Injected in 3-5ml increments after negative blood aspiration, Bupivacaine 0.5% Dose:: 10ml and Exparel Dose:: 10ml Additives (Indicate Dose Given): None Ultrasound: Sterile probe cover and gel used Nerve Stimulator: Supplement to Ultrasound use and No twitch or parasthesia noted < 0.5 mA Paresthesia: None Procedure Tolerated: No Complications and Patient tolerated well Procedure Outcome: Successful Performed By: Doug Redding
[2022-12-13] MEDS: EPINEPHrine 30 MG/30 ML VIAL (15:17)
[2022-12-13] MEDS: Bupivacaine 0.25% Pres-Free 30 ML VIAL (15:17)
[2022-12-13] MEDS: HYDROmorphone 2 MG/ML SYR IVP ×3 (16:23→16:44)
[2022-12-13] MEDS: Normal Saline 10 ML VIAL IJ (16:24)
--- NOTE | 2022-12-13 17:01 | W.ANESPOSTOP ---
Postoperative Evaluation Date, Time and Location Date Performed: 12/13/22 Time Performed: 17:01 Patient Location: Day Surgery Unit Vital Signs Most Recent Imported Vital Signs: Most Recent Vital Signs Temp Pulse Resp BP Pulse Ox 36.4 C L 67 16 164/86 H 67 L 12/13/22 16:54 12/13/22 16:54 12/13/22 16:54 12/13/22 16:54 12/13/22 16:54 Pain Score Most Recent Pain Score: Most Recent Pain Score Pain Level 4 12/13/22 1701 Assessment Mental Status: Awake (Alert & Oriented to Patient Baseline) Airway and Respiratory Function: Patent airway with normal (patient baseline) respiratory exam Cardiovascular Function: Hemodynamically Stable Hydration Status: Adequately Hydrated Nausea & Vomiting: No Nausea or Vomiting Pain: Pain is tolerable per patient Peripheral Nerve Block: Regional nerve block not resolved at time of post operative discharge
[2022-12-13] MEDS: oxyCODONE 5 MG TAB PO (17:09)
== END 2022-12-13 17:52 | disposition home or self-care (01) ==
PROVIDERS: PCP Nurse Practitioner; Visit Provider Student in an Organized Health Care Education/Training Program
PROC: (CPT 23430; principal; 2022-12-13 14:30)
DX: S46.211A Strain of muscle, fascia and tendon of other parts of biceps, right arm, initial encounter (principal); E78.5 Hyperlipidemia, unspecified; K21.9 Gastro-esophageal reflux disease without esophagitis; F17.210 Nicotine dependence, cigarettes, uncomplicated; X58.XXXA Exposure to other specified factors, initial encounter
CPT/HCPCS: 23430; 76942; J0690; J1100; J1170; J1885; J2250; J2405; J2704

== ENCOUNTER 2023-01-17 07:26 | Day surgery (SDC) | payer OTHER, SELFPAY ==
--- NOTE | 2023-01-17 06:01 | ANES.PREOP_ITS ---
General Info Date of Service Date Performed: 01/17/23 Height: 5 ft 8 in Weight: 87.09 kg Body Mass Index (BMI): 29.2 Surgical Procedure: Operation Date: 01/17/23 09:10 Proposed Procedure Side Surgeon p Cystoscopy with Bladder Biopsy and Fulguration Prince Mabry MD s Bladder Installation of Mytomycin Prince Mabry MD Meds Allergies and Home Medications Allergies Allergy/AdvReac Type Severity Reaction Status Date / Time poison pranav extract Allergy Unknown Verified 01/17/23 07:45 Yellow jacket Allergy Unknown Sometimes Uncoded 01/17/23 07:45 bothers and sometimes doesn't Home Medication Medication Instructions Recorded glucosamine [id number] 1 ea PO DAILY 05/11/14 sabra 1,500 mg-400 unit-100 mg tablet (Osteo Bi-Flex (5-Loxin)) multivit with minerals no.21-folic 1 mg PO DAILY 05/11/14 acid 1 mg tablet,delayed release (Supervite (EC)) aspirin 81 mg tablet,delayed 81 mg PO DAILY 05/27/14 release Panax, [place] Ginsg/B12/Royl 1 ea PO DAILY 10/11/17 [Ginseng Complex Capsule] mecobalamin (vitamin B12) 1,000 1,000 mcg PO DAILY 11/28/21 mcg chewable tablet melatonin 10 mg capsule 10 mg PO HS PRN 11/28/21 hydrochlorothiazide 25 mg tablet 25 mg PO DAILY #90 tab-caps 03/23/22 sildenafil 100 mg tablet See Rx Instructions .Route 07/04/22 .COMPLEX #10 tabs triamcinolone acetonide 0.1 % 1 applic topical 2-4 times daily 07/27/22 topical cream PRN #30 grams ketoconazole 2 % topical cream 1 applic topical BID bilateral 12/03/22 axillary rash #60 grams acetaminophen 500 mg capsule 500 mg PO PRN PRN 12/13/22 lisinopril 10 mg tablet 10 mg PO DAILY 12/13/22 naproxen 250 mg tablet 250 - 500 mg (1 - 2 x 250 mg) PO 12/13/22 BID PRN #30 tabs atorvastatin 40 mg tablet 40 mg PO DAILY #90 tab-caps 01/02/23 omeprazole 20 mg capsule,delayed 20 mg PO DAILY #90 caps 01/15/23 release Current Visit Medications: Current Medications Generic Name Dose Route Start Last Admin Trade Name Freq PRN Reason Stop Dose Admin Mitomycin 40 mg/ Sodium 0 mg 01/17/23 06:00 Chloride 40 ml BLADIN 01/17/23 16:00 TODAY [facility] Ringer's Solution 1,000 mls @ 80 mls/hr 01/17/23 06:00 IV 02/15/23 23:59 INFUSION [facility] Cefazolin Sodium/Dextrose 2 gm in 50 mls @ 100 mls/hr 01/17/23 06:00 Ancef Duplex IVPB 01/17/23 16:00 PREOP ANNABELLE IV Miscellaneous Supplies 1 each 01/17/23 06:00 Iv Access IV 02/15/23 23:59 DIRECTED ANNABELLE Sodium Chloride 0 ml 01/17/23 06:00 Normal Saline Flush 10 Ml Syr IV 02/15/23 23:59 PRN PRN Sodium Chloride 0 ml 01/17/23 06:00 Normal Saline 10 Ml Vial IJ 02/15/23 23:59 DIRECTED PRN Sterile Water 0 ml 01/17/23 06:00 Water,Injection,Sterile 10 Ml Vial IJ 02/15/23 23:59 DIRECTED PRN PFSH Active Problems Active Problems: Problem Status Onset Code Rupture of right proximal biceps tendon 11/30/22 S46.211A Elevated PSA R97.20 Blindness of left eye 03/02/14 H54.40 Body mass index (BMI) exceeds 25 05/05/15 Z78.9 Essential hypertension 02/02/15 I10 GERD (gastroesophageal reflux disease) 03/02/14 K21.9 Hyperlipidemia 03/02/14 E78.5 IFG (impaired fasting glucose) 12/28/16 R73.01 Tobacco use disorder F17.200 Dermatitis L30.9 Heavy alcohol use Z78.9 Erectile dysfunction N52.9 History of colon polyps Z86.010 Anemia D64.9 Medical History Medical History Lesion of liver 10/2022 f/u CT: tiny cysts, no further f/u needed COVID (~02/14/22) Bladder cancer Tubular adenoma of colon (06/18/14) 2 polyps Tendonitis of wrist, left (11/05/14) Medical History Comments:: 05/28/22: last had a cigarette 05/26/22 Surgical History Surgical History H/O endoscopy (05/28/22) Dr Paniagua Hx of cystoscopy Colonoscopy - MAC (02/26/18) Dr Mariscal, no abnormalities, repeat in 10 years. Tobacco Smoking/Tobacco Use Status: Former Tobacco Use Alcohol Alcohol Intake: current Alcohol intake frequency: 3 or more drinks per day Alcohol type: beer and hard liquor Substance Use Substance use: Never Substance use type: does not use Vital Signs and Lab Results Vital Signs Most Recent Vital Signs in EMR: Temp Pulse Resp BP Pulse Ox 37.1 C 74 18 163/102 H 95 01/17/23 08:00 01/17/23 08:00 01/17/23 08:00 01/17/23 08:00 01/17/23 08:00 Lab Results Blood Type / Crossmatch: No Data to Display Complete Blood Count: No Data to Display Complete Metabolic Panel: No Data to Display Liver Function Panel: No Data to Display Coagulation Panel: No Data to Display Cardiac Panel: No Data to Display Arterial Blood Gas: No Data to Display Venous Blood Gas: No Data to Display Pancreas Panel: No Data to Display Thyroid Panel: No Data to Display Infectious Disease: 2 No Data to Display Blood Cultures: No Data to Display Toxicology Panel: No Data to Display Imaging and Studies Imaging and Studies Study information below may be from another EMR and interpreted by another provider. Please see original notes in EMR for more complete details. EKG Summary: 04/09: Sinus rhythm...normal P axis, V-rate 60- 99 Anesthesia Assessment and Plan Anesthesia History Personal History: No History of Anesthesia Complications Family History: No Family History of Anesthesia Complications Exercise Tolerance Exercise Tolerance: Metabolic Equivalents>4 Cardiac & Pulmonary Exam Cardiac Exam: Normal S1/S2 Heart Sounds Pulmonary Exam: Clear Bilateral Breath Sounds Implantable Cardiac Device Does patient have a Pacemaker or an ICD?: No Airway Exam Known Difficult Airway: No Mallampati Class: 3 Mouth Opening: Normal (> 3cm) Thyromental Distance: Greater than 3 cm Neck Range of Motion: Full ROM Neck Circumference: Normal Teeth Condition: Normal Dentition ASA Classification ASA Score: ASA 2 Emergency Case?: No NPO Status NPO Status: NPO Clears >2 hours, Solids >8 hours Anesthesia Plan Resuscitation Status: Full Code Anesthesia Technique: General Anesthesia Airway Planned: Natural Airway Monitors Used: Standard Monitors Preoperative Comments:: 57 yo male for cysto, bladder bx. was here recently for shoulder, denies any interval changes in his health and is doing well. Sig PMHx: HTN (HCTZ, lisinopril), GERD (omeprazole), anemia, former smoker, daily EtOH. Previous Anes: - Shoulder, glide 3 grade 1, mask with OPA. - TURBT x 3, prop, natural airway, no issues. - EGD, prop, natural airway, no issues. - colo, prop, natural airway, glyco for roberto.
[2023-01-17 08:00] VITALS: BP 163/102; PULSE 74; RESP 18; TEMP 37.1; O2SAT 95
[2023-01-17 08:20] VITALS: BMI 29.2
[2023-01-17] MEDS: Lactated Ringers 1,000 ML 80 ML IV (08:30)
--- NOTE | 2023-01-17 08:38 | W.PM.HP.N ---
Date of service: 01/17/23 Time of Service: 08:42 Assessment and Plan Assessment and plan (1) Bladder cancer: Assessment and plan: We will plan to biopsy and fulgurate his small recurrence. we will then instill chemotherapy into the bladder to attempt to prevent future recurrences Qualifiers: Bladder location: unspecified site Qualified Code(s): C67.9 - Malignant neoplasm of bladder, unspecified History of Present Illness History of Present Illness Chief Complaint: Bladder Cancer Narrative: This is a 57-year-old gentleman who initially presented with a bladder mass.? He underwent transurethral resection and was found to have a high-grade urothelial cell tumor that may be in valving the lamina propria.? He was treated with intravesical BCG. On follow-up, he had small papillary lesions that were low-grade, noninvasive urothelial cell carcinoma.? His most recent surveillance cystoscopy showed another recurrence up toward the dome of the bladder. He has no gross hematuria.? He has no change in his voiding symptoms. Review of Systems Narrative: No fevers or chills No vision change or dysphasia No diabetes or thyroid No shortness of breath, cough or hemoptysis No chest pain or palpitations No nausea, vomiting, hepatitis, ulcers, jaundice, diarrhea or constipation No seizures, strokes or peripheral neuropathy No bleeding disorders or anemia No gout or arthralgia PFSH All Active Problems Rupture of right proximal biceps tendon (Acute 11/30/22) Elevated PSA (Acute) Blindness of left eye (Chronic 03/02/14) Body mass index (BMI) exceeds 25 (Chronic 05/05/15) Essential hypertension (Chronic 02/02/15) GERD (gastroesophageal reflux disease) (Chronic 03/02/14) Hyperlipidemia (Chronic 03/02/14) Baseline LDL 160-180s IFG (impaired fasting glucose) (Chronic 12/28/16) Tobacco use disorder (Chronic) Dermatitis (Chronic) Axilla, probably 2' deod. 11/2017 [facility] [place] Heavy alcohol use (Acute) Erectile dysfunction (Acute) History of colon polyps (Acute) Anemia (Chronic) Medical History Lesion of liver 10/2022 f/u CT: tiny cysts, no further f/u needed COVID (~02/14/22) Bladder cancer Tubular adenoma of colon (06/18/14) 2 polyps Tendonitis of wrist, left (11/05/14) Surgical History H/O endoscopy (05/28/22) Dr Paniagua Hx of cystoscopy Colonoscopy - MAC (02/26/18) Dr Mariscal, no abnormalities, repeat in 10 years. Family History Mother Aortic aneurysm Father No problems noted. Sister No problems noted. Sister No problems noted. Brother No problems noted. Brother No problems noted. Brother No problems noted. 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 Pets and animals: No Sexually active: Yes Do you think of yourself as: straight/heterosexual Current gender identity: male What is your relationship status?: never How often do you talk on the phone with friends or family?: once per week How often do you get together with friends or relatives?: twice per week How often do you attend anabaptist or orthodoxy services?: decline to answer Do you belong to any clubs or organized social groups?: no Panel score (0-1 are the most socially isolated patients): 1 What type of physical activity do you participate in: regular exercise and other Details: Active with work on [employer] Duration: 30-45 minutes/day Frequency: daily Gricelda/Tenriism: Mosque Special gricelda needs: No Seatbelt use: always Helmet use: Yes Drive intox or ride w/intox driver/guide: No Water heater temp set <120 deg: Yes Working smoke detector in home: No Fire extinguisher in home: Yes Carbon monox detector in home: No Do you feel safe at home: Yes Do you feel safe in your relationship?: Yes Meds Allergies and Home Medications Allergies Allergy/AdvReac Type Severity Reaction Status Date / Time poison pranav extract Allergy Unknown Verified 01/17/23 07:45 Yellow jacket Allergy Unknown Sometimes Uncoded 01/17/23 07:45 bothers and sometimes doesn't Home Medications Medication Instructions Recorded Confirmed Type glucosamine [id number] 1 ea PO DAILY 05/11/14 01/17/23 History sabra 1,500 mg-400 unit-100 mg tablet (Osteo Bi-Flex (5-Loxin)) multivit with minerals no.21-folic 1 mg PO DAILY 05/11/14 01/17/23 History acid 1 mg tablet,delayed release (Supervite (EC)) aspirin 81 mg tablet,delayed 81 mg PO DAILY 05/27/14 01/16/23 History release Panax, [place] Ginsg/B12/Royl 1 ea PO DAILY 10/11/17 01/17/23 History [Ginseng Complex Capsule] mecobalamin (vitamin B12) 1,000 1,000 mcg PO DAILY 11/28/21 01/17/23 History mcg chewable tablet melatonin 10 mg capsule 10 mg PO HS PRN 11/28/21 01/17/23 History hydrochlorothiazide 25 mg tablet 25 mg PO DAILY #90 tab-caps 03/23/22 01/17/23 Rx sildenafil 100 mg tablet See Rx Instructions .Route 07/04/22 01/17/23 Rx .COMPLEX #10 tabs triamcinolone acetonide 0.1 % 1 applic topical 2-4 times daily 07/27/22 01/17/23 Rx topical cream PRN #30 grams ketoconazole 2 % topical cream 1 applic topical BID bilateral 12/03/22 01/17/23 Rx axillary rash #60 grams acetaminophen 500 mg capsule 500 mg PO PRN PRN 12/13/22 01/17/23 History lisinopril 10 mg tablet 10 mg PO DAILY 12/13/22 01/17/23 History naproxen 250 mg tablet 250 - 500 mg (1 - 2 x 250 mg) PO 12/13/22 01/17/23 Rx BID PRN #30 tabs atorvastatin 40 mg tablet 40 mg PO DAILY #90 tab-caps 01/02/23 01/17/23 Rx omeprazole 20 mg capsule,delayed 20 mg PO DAILY #90 caps 01/15/23 01/17/23 Rx release Exam Const General: cooperative Neck Neck: supple Resp Effort & Inspection: normal respiratory effort Auscultation: clear to auscultation bilaterally Cardio Rate: regular rate Rhythm: regular rhythm GI Palpation: soft and no masses Neuro General: patient alert, patient awake and patient oriented x3 Results Last Vital Signs Temp 37.1 C 01/17/23 08:00 Pulse 74 01/17/23 08:00 Resp 18 01/17/23 08:00 BP 163/102 H 01/17/23 08:00 Pulse Ox 95 01/17/23 08:00 Time Spent Time spent with Patient: <40 minutes Time was spent: other
--- NOTE | 2023-01-17 09:54 | BLADDER_PTH ---
PATIENT: Duarte Agudelo LOC: [facility] U#:[id number] AGE/SX: 57/M ROOM: RE01/17/[address]: Prince Mabry MD : [id number] BED: DIS: 01/17/2023 SPEC #: [id number] RECD: 01/17/23 12:39 STATUS: LUZ MARIA RE #: [id number] DEMARIO: 01/17/23 09:[address]: Prince Mabry DEPT: Surgical Specimen RECD BY: Namrata Jenkins ENTERED: 01/17/23 12:40 SP TYPE: Bladder OTHR DR: Yulissa Elam APRN Tissues: 1 - BLADDER BIOPSY Procedures: GROSS AND MICRO LEVEL 4 Comments: [id number]
[2023-01-17] MEDS: Lidocaine 2% Jelly 11 ML SYR (09:56)
--- NOTE | 2023-01-17 10:05 | PDOC.DSDIS_ITS ---
Date of service: 01/17/23 Time of Service: 10:05 Discharge Plan Disposition Patient Disposition: Home Condition: Stable Discharge Details Reason For Visit: bladder cancer Attending Provider: Prince Mabry Primary Care Provider: Yulissa Elam Home Meds and New Rx's Prescriptions: No Action ketoconazole 2 % cream 1 applic topical BID Qty: 60 3RF mecobalamin (vitamin B12) 1,000 mcg tablet,chewable 1,000 mcg PO DAILY melatonin 10 mg capsule 10 mg PO HS PRN triamcinolone acetonide 0.1 % cream 1 applic Topical 2-4 times daily PRN Qty: 30 1RF Rx Instructions: Dispense 1 80G tube; Apply thin film to affected area (thorax, lower legs) 2- 4 times daily until resolution Supervite (EC) 1 MG tablet,delayed release (DR/EC) 1 mg PO DAILY [id number] [id number] [Osteo Bi-Flex (5-Loxin)] 1 EACH tablet 1 ea PO DAILY aspirin 81 MG tablet,delayed release (DR/EC) 81 mg PO DAILY Panax, [place] Ginsg/B12/Royl [Ginseng Complex Capsule] 1 EACH capsule 1 ea PO DAILY hydrochlorothiazide 25 mg tablet 25 mg PO DAILY Qty: 90 3RF sildenafil 100 mg tablet See Rx Instructions .ROUTE .COMPLEX Qty: 10 6RF Dose Instruction: TAKE 1/2 TABLET BY MOUTH NEEDED FOR SEXUAL ACTIVITY. TAKE 30 MINUTES TO 4 HOURS BEFORE ACTIVITY Rx Instructions: TAKE 1/2 TABLET BY MOUTH NEEDED FOR SEXUAL ACTIVITY. TAKE 30 MINUTES TO 4 HOURS BEFORE ACTIVITY atorvastatin 40 mg tablet 40 mg PO DAILY Qty: 90 3RF Hold Instructions: Home Medication placed on hold at Doctor's office omeprazole 20 mg capsule,delayed release(DR/EC) 20 mg PO DAILY Qty: 90 1RF Rx Instructions: Take 20 mg daily at least 30 minutes before first meal lisinopril 10 mg tablet 10 mg PO DAILY acetaminophen 500 mg Capsule 500 mg PO PRN PRN naproxen 250 mg tablet 250 - 500 mg PO BID PRNQty: 30 0RF Rx Instructions: take with a meal Discharge Instructions Additional Instructions: followup 1 to 2 weeks for pathology results Activity:: Activity as Tolerated Shower/Bathe:: 24 hours Diet:: As Tolerated Discharge Orders Discharge Orders: Discharge Order (Routine); Ordered 01/17/23 Ordered By: Prince Mabry DS: Diagnosis Discharge Diagnosis (1) Bladder cancer:
--- NOTE | 2023-01-17 10:09 | ROE_ITS ---
Date of service: 01/17/23 Time of Service: 10:09 Operative Note Operative Note DATE OF PROCEDURE: 01/17/23 PRE-OP DIAGNOSIS: Bladder cancer POST-OP DIAGNOSIS: same PROCEDURE: Cystoscopy, bladder biopsy with fulguration, instillation of Mitomycin-C into the bladder SURGEON: Prince Mabry ANESTHESIA TYPE: Local By Surgeon and General:No Airway Refer to Anesthesia Record ESTIMATED BLOOD LOSS: 5 PATHOLOGY: other (bladder biopsy) COMPLICATIONS: None Patient was transported to: same day Patient's condition: stable Implants: 16 Amharic greene with 10 cc sterile water in balloon Indications: Is a 57-year-old gentleman who has a history of urothelial cell carcinoma of the bladder. His initial tumor was high-grade with involvement of the lamina propria. He was treated with intravesical BCG. He has had a recurrence but his recurrent tumor was low-grade and noninvasive. On his most recent cystoscopy, we again found a papillary lesion up towards the dome of the bladder. He presents for a biopsy and fulguration of the lesion followed by an injection of Mitomycin-C into the bladder Findings: Small (less than 2 cm) papillary lesion at the dome of the bladder Procedure Description: The patient was brought to the operating room on 01/17/2023. He was given preoperative antibiotics. After successful induction of general anesthesia without intubation, he was placed in the dorsal lithotomy position. His genitalia was prepped and draped. 2% Xylocaine jelly was instilled into the urethra to act as a local anesthetic. A 22 Amharic rigid cystoscope was passed through the urethra into the bladder. The urethra and bladder were inspected with a 30 degree lens. The pendulous, bulbar and membranous urethra appeared normal with no strictures. The prostatic urethra showed some lateral lobe enlargement but no significant median lobe. The bladder neck was entered and the bladder mucosa was inspected. No blood was seen coming from either ureteral orifice. Up towards the dome of the bladder, more to the left side, a papillary lesion was identified. The lesion measured less than 2 cm in largest dimension. I biopsied the base of the lesion and sent the biopsy to the lab for permanent section. I then cauterized the biopsy site and the remaining tumor. Once the cauterization was completed, I removed the cystoscope and passed a 16 Amharic Greene catheter through the urethra into the bladder. The catheter balloon was inflated with 10 cc of sterile water. The bladder was drained. A vial of Mitomycin-C (40 mg mixed in 40 mL of saline) was then instilled into the bladder. The catheter was clamped leaving the medication in place. The patient tolerated the procedure well with no complications. He was taken back to the day surgery unit in stable condition.
[2023-01-17 10:10] VITALS: BP 127/87; PULSE 73; RESP 15; TEMP 36.4; O2SAT 90
[2023-01-17 10:41] VITALS: BP 138/87; PULSE 66; RESP 19; O2SAT 92
[2023-01-17] MEDS: Phenazopyridine 200 MG TAB PO (10:49)
--- NOTE | 2023-01-17 12:08 | W.ANESPOSTOP ---
Postoperative Evaluation Date, Time and Location Date Performed: 01/17/23 Time Performed: 12:08 Patient Location: Day Surgery Unit Vital Signs Most Recent Imported Vital Signs: Most Recent Vital Signs Temp Pulse Resp BP Pulse Ox 36.4 C L 66 19 138/87 92 01/17/23 10:10 01/17/23 10:41 01/17/23 10:41 01/17/23 10:41 01/17/23 10:41 Pain Score Most Recent Pain Score: Most Recent Pain Score Pain Level 5 01/17/23 10:41 Assessment Mental Status: Awake (Alert & Oriented to Patient Baseline) Airway and Respiratory Function: Patent airway with normal (patient baseline) respiratory exam Cardiovascular Function: Hemodynamically Stable Hydration Status: Adequately Hydrated Nausea & Vomiting: No Nausea or Vomiting Pain: Pain is tolerable per patient Peripheral Nerve Block: Patient did not receive a nerve block
== END 2023-01-17 12:30 | disposition home or self-care (01) ==
PROVIDERS: PCP Nurse Practitioner; Visit Provider Urology
PROC: 0TBB8ZX Excision of Bladder, Via Natural or Artificial Opening Endoscopic, Diagnostic (ICD-10-PCS; CPT 52204; principal; 2023-01-17 09:00)
PROC: (CPT 52204; 2023-01-17 09:00)
DX: C67.1 Malignant neoplasm of dome of bladder (principal); I10 Essential (primary) hypertension; K21.9 Gastro-esophageal reflux disease without esophagitis; R73.01 Impaired fasting glucose; D64.9 Anemia, unspecified
CPT/HCPCS: 52204; 51720; 88305; J1100; J1885; J2250; J2405; J9280

== ENCOUNTER 2023-05-06 06:10 | Day surgery (SDC) | payer OTHER, SELFPAY ==
[2023-05-06] VITALS (10 sets, daily range): BP systolic 91–147; BP diastolic 73–97; PULSE 63–79; RESP 12–17; TEMP 36.4–36.6; O2SAT 93–97; BMI 29.4
--- NOTE | 2023-05-06 06:29 | W.ANESPRE ---
General Info Date of Service Date Performed: 05/06/23 Height: 5 ft 9 in Weight: 90.4 kg Body Mass Index (BMI): 29.4 Surgical Procedure: Operation Date: 05/06/23 07:40 Proposed Procedure Side Surgeon p Cystoscopy w/Transurethral Resection Bladder Tumor Prince Mabry MD Meds Allergies and Home Medications Allergies Allergy/AdvReac Type Severity Reaction Status Date / Time poison pranav extract Allergy Unknown rash Verified 05/06/23 06:19 Yellow jacket Allergy Intermediate Sometimes Uncoded 05/06/23 06:19 bothers and sometimes doesn't Home Medication Medication Instructions Recorded glucosamine BPp-N7-Kiylccbru 1 ea PO DAILY 05/11/14 sabra 1,500 mg-400 unit-100 mg tablet (Osteo Bi-Flex (5-Loxin)) multivit with minerals no.21-folic 1 mg PO DAILY 05/11/14 acid 1 mg tablet,delayed release (Supervite (EC)) aspirin 81 mg tablet,delayed 81 mg PO DAILY 05/27/14 release Panax, Citizen Of [place] Ginsg/B12/Royl 1 ea PO DAILY 10/11/17 [Ginseng Complex Capsule] mecobalamin (vitamin B12) 1,000 1,000 mcg PO DAILY 11/28/21 mcg chewable tablet melatonin 10 mg capsule 10 mg PO HS PRN 11/28/21 ketoconazole 2 % topical cream 1 applic topical BID bilateral 12/03/22 axillary rash #60 grams acetaminophen 500 mg capsule 500 mg PO PRN PRN 12/13/22 atorvastatin 40 mg tablet 40 mg PO DAILY #90 tab-caps 01/02/23 omeprazole 20 mg capsule,delayed 20 mg PO DAILY #90 caps 01/15/23 release sildenafil 100 mg tablet See Rx Instructions .Route 01/21/23 .COMPLEX #10 tabs hydrochlorothiazide 25 mg tablet 25 mg PO DAILY #90 tab-caps 03/04/23 lisinopril 10 mg tablet 10 mg PO DAILY #90 tabs 03/12/23 nitroglycerin 0.4 % (w/w) rectal 1 inch NC BID PRN rectal pain #30 04/29/23 ointment grams Current Visit Medications: Current Medications Generic Name Dose Route Start Last Admin Trade Name Freq PRN Reason Stop Dose Admin Gemcitabine HCl 2 gm/ Sodium 0 gm 05/06/23 06:00 Chloride 50 ml BLADIN 05/06/23 18:00 DIRECTED ANNABELLE Ringer's Solution 1,000 mls @ 80 mls/hr 05/06/23 06:00 IV 05/06/23 23:59 INFUSION ANNABELLE Cefazolin Sodium/Dextrose 2 gm in 50 mls @ 100 mls/hr 05/06/23 06:00 Ancef Duplex IVPB 05/06/23 23:59 PREOP ANNABELLE IV Miscellaneous Supplies 1 each 05/06/23 06:00 Iv Access IV 05/06/23 23:59 DIRECTED ANNABELLE Sodium Chloride 0 ml 05/06/23 06:00 Normal Saline Flush 10 Ml Syr IV 05/06/23 23:59 PRN PRN Sodium Chloride 0 ml 05/06/23 06:00 Normal Saline 10 Ml Vial IJ 05/06/23 23:59 DIRECTED PRN Sterile Water 0 ml 05/06/23 06:00 Water,Injection,Sterile 10 Ml Vial IJ 05/06/23 23:59 DIRECTED PRN PFSH Active Problems Active Problems: Problem Status Onset Code Rupture of right proximal biceps tendon 11/30/22 S46.211A Elevated PSA R97.20 Blindness of left eye 03/02/14 H54.40 Body mass index (BMI) exceeds 25 05/05/15 Z78.9 Essential hypertension 02/02/15 I10 GERD (gastroesophageal reflux disease) 03/02/14 K21.9 Hyperlipidemia 03/02/14 E78.5 IFG (impaired fasting glucose) 12/28/16 R73.01 Tobacco use disorder F17.200 Dermatitis L30.9 Heavy alcohol use Z78.9 Erectile dysfunction N52.9 History of colon polyps Z86.010 Anemia D64.9 Medical History Medical History Lesion of liver 10/2022 f/u CT: tiny cysts, no further f/u needed COVID (~02/14/22) Bladder cancer Tubular adenoma of colon (06/18/14) 2 polyps Tendonitis of wrist, left (11/05/14) Medical History Comments:: 05/28/22: last had a cigarette 05/26/22 Surgical History Surgical History H/O endoscopy (05/28/22) Dr Paniagua Hx of cystoscopy Colonoscopy - MAC (02/26/18) Dr Mariscal, no abnormalities, repeat in 10 years. Tobacco Smoking/Tobacco Use Status: Former Tobacco Use Alcohol Alcohol Intake: current Alcohol intake frequency: 3 or more drinks per day Alcohol type: beer and hard liquor Substance Use Substance use: Never Substance use type: does not use Details: alcohol Vital Signs and Lab Results Vital Signs Most Recent Vital Signs in EMR: Most Recent Vital Signs Temp Pulse Resp BP Pulse Ox 36.5 C 79 16 130/93 H 94 05/06/23 06:24 05/06/23 06:24 05/06/23 06:24 05/06/23 06:24 05/06/23 06:24 Lab Results Blood Type / Crossmatch: No Data to Display Complete Blood Count: No Data to Display Complete Metabolic Panel: No Data to Display Liver Function Panel: No Data to Display Coagulation Panel: No Data to Display Cardiac Panel: No Data to Display Arterial Blood Gas: No Data to Display Venous Blood Gas: No Data to Display Pancreas Panel: No Data to Display Thyroid Panel: No Data to Display Infectious Disease: No Data to Display Blood Cultures: No Data to Display Toxicology Panel: No Data to Display Imaging and Studies Imaging and Studies Study information below may be from another EMR and interpreted by another provider. Please see original notes in EMR for more complete details. EKG Summary: 04/09: Sinus rhythm...normal P axis, V-rate 60- 99 Anesthesia Assessment and Plan Anesthesia History Personal History: No History of Anesthesia Complications Family History: No Family History of Anesthesia Complications Exercise Tolerance Exercise Tolerance: Metabolic Equivalents>4 Pertinent Negatives Pertinent Negatives: No Major Cardiovascular Symptoms or Complaints, No Major Pulmonary Symptoms or Complaints and No History of CVA/TIA Cardiac & Pulmonary Exam Cardiac Exam: Normal S1/S2 Heart Sounds Pulmonary Exam: Clear Bilateral Breath Sounds Implantable Cardiac Device Does patient have a Pacemaker or an ICD?: No Airway Exam Known Difficult Airway: No Mallampati Class: 3 Mouth Opening: Normal (> 3cm) Thyromental Distance: Greater than 3 cm Neck Range of Motion: Full ROM Neck Circumference: Normal Teeth Condition: Normal Dentition ASA Classification ASA Score: ASA 3 Emergency Case?: No NPO Status NPO Status: NPO Clears >2 hours, Solids >8 hours Anesthesia Plan Resuscitation Status: Full Code Anesthesia Technique: General Anesthesia Airway Planned: Endotracheal Tube Monitors Used: Standard Monitors and SedLine Preoperative Comments:: pt reports medication controlled reflux
[2023-05-06] MEDS: Lactated Ringers 1,000 ML 80 ML IV (06:44)
--- NOTE | 2023-05-06 07:04 | HPE_ITS ---
Date of service: 05/06/23 Time of Service: 07:04 Assessment and Plan Assessment and plan (1) Bladder cancer: Assessment and plan: For cystoscopy and TUR Bladder tumors. He has had recurrance with an intravesical dose of Mitomycin C postoperatively. We will use Gemcitabine following his TURBT. Qualifiers: Bladder location: unspecified site Qualified Code(s): C67.9 - Malignant neoplasm of bladder, unspecified History of Present Illness History of Present Illness Chief Complaint: Bladder cancer Narrative: This is a 58-year-old gentleman who has a history of urothelial cell carcinoma of the bladder. He has been treated with transurethral resection followed by intravesical BCG. His initial pathology was high-grade, noninvasive urothelial cell carcinoma. He has had recurrences of low-grade, noninvasive urothelial cell carcinoma treated with transurethral resection and a single entry of vesicle dose of Mitomycin-C. On his recent surveillance cystoscopies we found 2 small papillary recurrences along with some nodular areas in the bladder. He presents now for transurethral resection and a single dose of intravesical gemcitabine into the bladder. He is not having any gross hematuria. Review of Systems Constitutional Constitutional: Denies chills and Denies fever(s) Cardiovascular Cardiovascular: Denies chest pain, Denies irregular heart rhythm and Denies dyspnea Respiratory Respiratory: Denies cough and Denies dyspnea Gastrointestinal Gastrointestinal: Denies nausea and Denies vomiting Neurologic Neurologic: Denies seizure-like activity PFSH All Active Problems Rupture of right proximal biceps tendon (Acute 11/30/22) Elevated PSA (Acute) Blindness of left eye (Chronic 03/02/14) Body mass index (BMI) exceeds 25 (Chronic 05/05/15) Essential hypertension (Chronic 02/02/15) GERD (gastroesophageal reflux disease) (Chronic 03/02/14) Hyperlipidemia (Chronic 03/02/14) Baseline LDL 160-180s IFG (impaired fasting glucose) (Chronic 12/28/16) Tobacco use disorder (Chronic) Dermatitis (Chronic) Axilla, probably 2' deod. 11/2017 [facility] [place] Heavy alcohol use (Acute) Erectile dysfunction (Acute) History of colon polyps (Acute) Anemia (Chronic) Medical History Lesion of liver 10/2022 f/u CT: tiny cysts, no further f/u needed COVID (~02/14/22) Bladder cancer Tubular adenoma of colon (06/18/14) 2 polyps Tendonitis of wrist, left (11/05/14) Surgical History H/O endoscopy (05/28/22) Dr Paniagua Hx of cystoscopy Colonoscopy - MAC (02/26/18) Dr Mariscal, no abnormalities, repeat in 10 years. Family History Mother Aortic aneurysm Father No problems noted. Sister No problems noted. Sister No problems noted. Brother No problems noted. Brother No problems noted. Brother No problems noted. Social History (Updated 03/12/23 @ 16:41 by Alyse Givens LPN) Smoking/Tobacco Use Status: Former Tobacco Use Quit Date: 08/31/02 Tobacco: How many years used: 40 Quit status: has quit before Smoking risk assessment performed?: Yes Alcohol Intake: current Alcohol Intake frequency: 3 or more drinks per day Alcohol type: beer and hard liquor Drug use: Never Substance use type: does not use Details: alcohol Adopted: No Caregiver/Support person: No Foster care: No Housing: house Number of Children: 1 number of grandchildren: 0 Communication Needs: None and Corrective Lenses Education Level: vocational Do you need help understanding health information?: Rarely 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 Pets and animals: No Sexually active: Yes Do you think of yourself as: straight/heterosexual Current gender identity: male What is your relationship status?: never How often do you talk on the phone with friends or family?: once per week How often do you get together with friends or relatives?: twice per week How often do you attend yarsanism or oriental orthodox services?: decline to answer Do you belong to any clubs or organized social groups?: no Panel score (0-1 are the most socially isolated patients): 1 What type of physical activity do you participate in: regular exercise and other Details: Active with work on [employer] Duration: 30-45 minutes/day Frequency: daily Gricelda/Congregational: Pentecostal Special gricelda needs: No Seatbelt use: always Helmet use: Yes Drive intox or ride w/intox driver retraining instructor: No Water heater temp set <120 deg: Yes Working smoke detector in home: No Fire extinguisher in home: Yes Carbon monox detector in home: No Do you feel safe at home: Yes Do you feel safe in your relationship?: Yes Meds Allergies and Home Medications Allergies Allergy/AdvReac Type Severity Reaction Status Date / Time poison pranav extract Allergy Unknown rash Verified 05/06/23 06:19 Yellow jacket Allergy Intermediate Sometimes Uncoded 05/06/23 06:19 bothers and sometimes doesn't Home Medications Medication Instructions Recorded Confirmed Type glucosamine [id number]-[id number] 1 ea PO DAILY 05/11/14 05/06/23 History sabra 1,500 mg-400 unit-100 mg tablet (Osteo Bi-Flex (5-Loxin)) multivit with minerals no.21-folic 1 mg PO DAILY 05/11/14 05/06/23 History acid 1 mg tablet,delayed release (Supervite (EC)) aspirin 81 mg tablet,delayed 81 mg PO DAILY 05/27/14 05/01/23 History release Panax, [place] Ginsg/B12/Royl 1 ea PO DAILY 10/11/17 05/06/23 History [Ginseng Complex Capsule] mecobalamin (vitamin B12) 1,000 1,000 mcg PO DAILY 11/28/21 05/06/23 History mcg chewable tablet melatonin 10 mg capsule 10 mg PO HS PRN 11/28/21 05/06/23 History ketoconazole 2 % topical cream 1 applic topical BID bilateral 12/03/22 05/01/23 Rx axillary rash #60 grams acetaminophen 500 mg capsule 500 mg PO PRN PRN 12/13/22 05/06/23 History atorvastatin 40 mg tablet 40 mg PO DAILY #90 tab-caps 01/02/23 05/06/23 Rx omeprazole 20 mg capsule,delayed 20 mg PO DAILY #90 caps 01/15/23 05/06/23 Rx release sildenafil 100 mg tablet See Rx Instructions .Route 01/21/23 05/06/23 Rx .COMPLEX #10 tabs hydrochlorothiazide 25 mg tablet 25 mg PO DAILY #90 tab-caps 03/04/23 05/06/23 Rx lisinopril 10 mg tablet 10 mg PO DAILY #90 tabs 03/12/23 05/06/23 Rx nitroglycerin 0.4 % (w/w) rectal 1 inch DC BID PRN rectal pain #30 04/29/23 05/06/23 Rx ointment grams Exam Const General: cooperative and no acute distress Neck Neck: supple Resp Effort & Inspection: normal respiratory effort Auscultation: clear to auscultation bilaterally Cardio Rate: regular rate Rhythm: regular rhythm GI Palpation: soft and no masses Neuro General: patient alert, patient awake and patient oriented x3 Results Last Vital Signs Temp 36.5 C 05/06/23 06:24 Pulse 79 05/06/23 06:24 Resp 16 05/06/23 06:24 BP 130/93 H 05/06/23 06:24 Pulse Ox 94 05/06/23 06:24 Time Spent Time spent with Patient: <40 minutes Time was spent: other
[2023-05-06] MEDS: ceFAZolin 2 GM/50 ML BAG IVPB (07:45)
[2023-05-06] MEDS: Lidocaine 2% Jelly 11 ML SYR (08:00)
[2023-05-06] MEDS: GEMCITABINE HCL 2 GM, Normal Saline - Diluent 50 ML BLADIN (08:19)
--- NOTE | 2023-05-06 08:20 | BLADDER_PTH ---
PATIENT: Duarte Agudelo LOC: [facility] U#:[id number] AGE/SX: 58/M ROOM: RE05/06/[address]: Prince Mabry MD : [id number] BED: DIS: 05/06/2023 SPEC #: [id number] RECD: 05/06/23 12:39 STATUS: LUZ MRAIA REQ #: [id number] DEMARIO: 05/06/23 08:[address]: Prince Mabry DEPT: Surgical Specimen RECD BY: Namrata Jenkins ENTERED: 05/06/23 12:40 SP TYPE: Bladder OTHR DR: Yulissa Elam APRN Tissues: 1 - BLADDER CURRETTINGS Procedures: GROSS AND MICRO LEVEL 5 Comments: [id number]
--- NOTE | 2023-05-06 08:22 | ROE_ITS ---
Date of service: 05/06/23 Time of Service: 08:22 Operative Note Operative Note DATE OF PROCEDURE: 05/06/23 PRE-OP DIAGNOSIS: Bladder cancer POST-OP DIAGNOSIS: same PROCEDURE: Cystoscopy with TUR Bladder Tumor, instillation of Gemcitabine into bladder SURGEON: Prince Mabry ANESTHESIA TYPE: Local By Surgeon and General LMA/ETT Refer to Anesthesia Record ESTIMATED BLOOD LOSS: 10 PATHOLOGY: other (bladder tumor) COMPLICATIONS: None Patient was transported to: PACU Patient's condition: stable Implants: 16 vietnamese greene catheter with 10 cc sterile water in balloon Gemcitabine 2 grams instilled into bladder Indications: This is a 58-year-old gentleman who has a history of urothelial cell carcinoma of the bladder. His initial diagnosis was in 2021 when he had a high-grade urothelial cell carcinoma that involved the lamina propria. He was treated with transurethral resection followed by intravesical BCG. Since then, he has had several recurrences, all with low-grade, noninvasive urothelial cell carcinoma. He has been treated with transurethral resection and instillation of perioperative chemotherapeutic agents. On his most recent surveillance cystoscopy, we found a papillary lesion at the bladder neck along with more nodular appearing areas at the right trigone. He presents for cystoscopy and transurethral resection of these areas. Findings: small papillary lesion and larger nodular lesion right trigone palpable mass on bimanual exam Procedure Description: The patient was given antibiotics and brought to the operating room on 05/06/2022. After successful induction of general anesthesia, he was placed in the dorsal lithotomy position. His genitalia was prepped and draped. 2% Xylocaine jelly was instilled into the urethra to act as a local anesthetic. A 22 Argentine rigid cystoscope was passed through the urethra into the bladder. The urethra and bladder were inspected with the 30 degree lens. The pendulous, bulbar and membranous urethra's appeared normal. The prostatic urethra showed no abnormal mucosa, but there was a mild bladder neck contracture. The bladder neck was entered and the bladder mucosa was inspected. The left ureteral orifice appeared normal. On the right side, I was not able to definitively identify the ureteral orifice. There was a small papillary lesion at the bladder neck. I biopsied this area using a cold cup biopsy forceps. I then removed the cystoscope and passed a 26 Argentine resectoscope sheath through the urethra into the bladder. I then performed transurethral resection of the nodular lesions that had been identified at the right hemitrigone. These nodular areas had smooth overlying mucosa, but once they were unroofed, the contents appeared more similar to a classic urothelial cell carcinoma. All resected tissue was collected and sent to pathology for permanent section. I cauterized the resected sites and also cauterized the previous biopsy site at the bladder neck. Once hemostasis had been obtained, the bladder was filled with irrigant, the resectoscope was removed and a 16 Argentine Greene catheter was passed through the urethra into the bladder. The catheter balloon was inflated with 10 cc of sterile water. The bladder was drained. A solution containing 2 g of gemcitabine mixed and 50 mL of dilute was then instilled into the bladder through the catheter. The catheter was clamped leaving the gemcitabine in place. The patient tolerated the procedure well with no complications. A digital rectal exam revealed a firm area on the right side in a similar location to the the bladder mass seen cystoscopically. The patient was taken to the recovery room in stable condition.
--- NOTE | 2023-05-06 08:28 | W.PM.DSUDISC ---
Date of service: 05/06/23 Time of Service: 08:28 Discharge Plan Disposition Patient Disposition: Home Discharge Details Reason For Visit: bladder tumor Attending Provider: Prince Mabry Primary Care Provider: Yulissa Elam Home Meds and New Rx's Prescriptions: No Action lisinopril 10 mg tablet 10 mg PO DAILY Qty: 90 3RF ketoconazole 2 % cream 1 applic topical BID Qty: 60 3RF mecobalamin (vitamin B12) 1,000 mcg tablet,chewable 1,000 mcg PO DAILY melatonin 10 mg capsule 10 mg PO HS PRN hydrochlorothiazide 25 mg tablet 25 mg PO DAILY Qty: 90 3RF nitroglycerin 0.4 % (w/w) ointment 1 inch DE BID PRN (Reason: rectal pain) Qty: 30 0RF Rx Instructions: Hold Sildenafil while using. Supervite (EC) 1 MG tablet,delayed release (DR/EC) 1 mg PO DAILY [id number] serr [Osteo Bi-Flex (5-Loxin)] 1 EACH tablet 1 ea PO DAILY aspirin 81 MG tablet,delayed release (DR/EC) 81 mg PO DAILY Panax, [place] Ginsg/B12/Royl [Ginseng Complex Capsule] 1 EACH capsule 1 ea PO DAILY atorvastatin 40 mg tablet 40 mg PO DAILY Qty: 90 3RF Hold Instructions: Home Medication placed on hold at Doctor's office omeprazole 20 mg capsule,delayed release(DR/EC) 20 mg PO DAILY Qty: 90 1RF Rx Instructions: Take 20 mg daily at least 30 minutes before first meal sildenafil 100 mg tablet See Rx Instructions .ROUTE .COMPLEX Qty: 10 6RF Dose Instruction: TAKE 1/2 TABLET BY MOUTH NEEDED FOR SEXUAL ACTIVITY. TAKE 30 MINUTES TO 4 HOURS BEFORE ACTIVITY Rx Instructions: TAKE 1/2 TABLET BY MOUTH NEEDED FOR SEXUAL ACTIVITY. TAKE 30 MINUTES TO 4 HOURS BEFORE ACTIVITY acetaminophen 500 mg Capsule 500 mg PO PRN PRN Discharge Instructions Additional Instructions: followup @ 1 to 2 weeks to review surgical pathology no lifting over 10 pounds for @ 1 week Discharge Orders Discharge Orders: Discharge Order (Routine); Ordered 05/06/23 Ordered By: Prince Mabry DS: Diagnosis Discharge Diagnosis (1) Bladder cancer:
[2023-05-06] MEDS: fentaNYL 100 MCG/2 ML VIAL IVP ×2 (08:49→09:05)
--- NOTE | 2023-05-06 09:35 | W.ANESPOSTOP ---
Postoperative Evaluation Date, Time and Location Date Performed: 05/06/23 Time Performed: 09:35 Patient Location: PACU (Seen just as transferring to DSU) Vital Signs Most Recent Imported Vital Signs: Most Recent Vital Signs Temp Pulse Resp BP Pulse Ox 36.6 C 65 17 119/78 97 05/06/23 09:20 05/06/23 09:20 05/06/23 09:20 05/06/23 09:20 05/06/23 09:20 Pain Score Most Recent Pain Score: Most Recent Pain Score Pain Level 4 05/06/23 09:20 Assessment Mental Status: Awake (Alert & Oriented to Patient Baseline) Airway and Respiratory Function: Patent airway with normal (patient baseline) respiratory exam Cardiovascular Function: Hemodynamically Stable Hydration Status: Adequately Hydrated Nausea & Vomiting: No Nausea or Vomiting Pain: Pain is tolerable per patient Peripheral Nerve Block: Patient did not receive a nerve block
[2023-05-06] MEDS: Phenazopyridine 200 MG TAB PO (10:02)
== END 2023-05-06 10:23 | disposition home or self-care (01) ==
PROVIDERS: PCP Nurse Practitioner; Visit Provider Urology
PROC: 0TBB8ZZ Excision of Bladder, Via Natural or Artificial Opening Endoscopic (ICD-10-PCS; CPT 52234; principal; 2023-05-06 07:30)
PROC: (CPT 52234; 2023-05-06 07:30)
DX: C67.8 Malignant neoplasm of overlapping sites of bladder (principal); K21.9 Gastro-esophageal reflux disease without esophagitis; D64.9 Anemia, unspecified
CPT/HCPCS: 52234; 51720; 88307; J0131; J0690; J1100; J1885; J2001; J2405; J2704; J3010; J9201

== ENCOUNTER → 2023-06-03 04:18 | Outpatient (CLI) | payer OTHER, SELFPAY ==
--- NOTE | 2023-06-03 08:15 | DI.CT_ITS ---
Exam(s) CT ABDOMEN PELVIS WO/W EXAM: CT ABDOMEN PELVIS WO/W CLINICAL HISTORY: r/o mets. TECHNIQUE: Imaging Protocol: Axial computed tomography images with coronal and sagittal reformatted images were created and reviewed CONTRAST MATERIAL: Intravenous: Omnipaque-350 100cc Oral: None COMPARISON: CT CT ABDOMEN PELVIS W from 04/10/2022 FINDINGS: VISUALIZED LUNG BASES: The entire lung smith appear to have been included. There is a cavitated les ion in the right upper lobe measuring 10 x 8 mm. There are no other focal right lung findings. Ther e are no significant nodules in the left lung. Mild platelike atelectasis is noted in the superior l ingular segment of the left lung and posterior basal segment of the left lower lobe. There are no co nfluent infiltrates and there are no pleural effusions. There are no significant focal findings in t he trachea and mainstem bronchi. Mediastinum: There is no hilar nor mediastinal adenopathy. There is no subcarinal adenopathy. Shodd y benign-appearing lymph nodes are noted in both axillary regions. Small benign-appearing sub cm nod ule noted in the lateral aspect of the right thyroid gland Cardiac: Heart size is normal. There is no pericardial effusion. Caliber of thoracic aorta is withi n normal limits. ABDOMEN: LIVER: The previously described small sub cm size hypodensities in the liver are again noted, unchanged in s ize and number and consistent with small benign cysts. There are no metastatic appearing lesions in t he liver. No dilated intrahepatic ducts. GALLBLADDER/BILIARY: No obvious gallbladder pathology. CBD is not dilated. PANCREAS: No evidence of pancreatic mass nor dilatation of the pancreatic duct. SPLEEN: Spleen is not enlarged. No obvious intrasplenic lesions. Splenic and portal veins are paten t. ADRENALS: There are no significant adrenal masses. KIDNEYS:There is a cyst in the lateral cortex of the right kidney measuring 2.8 x 2.0 cm, slightly in creased in size but still representing a benign cyst which does not by itself require further workup. There is a smaller cyst in the lateral cortex of the left kidney measuring 0.8 cm, unchanged, and a lso not requiring further workup. There are no solid lesions in either kidney. There are no intrare nal calculi. No hydronephrosis, however, the diameter of the ureters is slightly prominent when comp ared to the CT scan of March 2022. URINARY BLADDER: There is abnormal thickening of the urinary bladder wall which is most prominent rig ht-side and posteriorly, more prominent than on the prior study. Concerning for recurrent mass. Cys toscopy recommended ABDOMINAL AORTA: There is an infrarenal abdominal aortic aneurysm extending along the length of the a bdominal aorta with maximum diameter 3.2 cm. Diameter of the common iliac arteries is upper normal. LYMPH NODES:There is no retroperitoneal nor paraaortic adenopathy. ABDOMINAL WALL: No evidence of significant anterior abdominal wall nor inguinal hernia. GI: There is no evidence of bowel obstruction, free air, nor abscess. Other: There is a prominent intermuscular lipoma in the right gluteal musculature again noted. This measures approximately 9 cm wide by 3 cm AP by 10 cm craniocaudal. PELVIS: GI: No evidence of appendicitis.There is extensive sigmoid diverticulosis without evidence of acute d iverticulitis. LYMPH NODES: There is no intrapelvic nor inguinal adenopathy. REPRODUCTIVE: Prostate gland size upper normal but difficult to differentiate the anterior aspect of the bladder from the abnormal posterior wall of the urinary bladder URINARY BLADDER: Abnormal as above. Suspect neoplasm OSSEOUS: No fractures and no significant osseous lesions. IMPRESSION: 1. The uppermost images of this abdominal-pelvic study appear to have included the entire lung smith on the 1st post contrast sequence. This reveals a solitary concerning cavitated nodule in the right upper lobe measuring 10 x 9 mm, either infectious or neoplastic. No other significant focal lung fi ndings and there are no pleural effusions nor significant intrathoracic adenopathy. 2. Abnormal asymmetric thickening of the urinary bladder wall posteriorly in right side which represe nts significant change from the CT scan of March 2022 and concerning for neoplasm. Cystoscopy ronda mmended. 3. Although there is no hydronephrosis, the ureters appear slightly prominent in diameter when compar ed to the images of CT scan performed 04/10/2022. This most probably related to the new abnormal fin dings in the urinary bladder. 4. Small stable small sub cm hypodensities in both lobes of the liver which are unchanged in size and configuration and have the appearance of small benign hepatic cysts. 5. Stable appearance of abdominal aortic aneurysm maximum diameter 3.2 cm. RADIATION DOSE DELIVERED: Total DLP DATA REPOSITORY: All CT scans at this facility are submitted to the National Radiology Data Registry (NRDR) Dose Index Registry (DIR) with the [employer] (A[employer]). RADIATION OPTIMIZATION: All CT scans at this facility use at least one of these dose optimization te chniques: automated exposure control; mA and/or kV adjustment per patient size (includes targeted exa ms where dose is matched to clinical indication); or iterative reconstruction.
--- NOTE | 2023-06-03 08:15 | DI.CT_ITS ---
Exam(s) CT CHEST W EXAM: CT CHEST W CLINICAL HISTORY: ? mets,bladder ca,c67.9 TECHNIQUE: Imaging Protocol: Axial computed tomography images with coronal and sagittal reformatted images were created and reviewed CONTRAST MATERIAL: Intravenous: Omnipaque 350 Contrast volume:100 ml. COMPARISON: CT CT ABDOMEN PELVIS WO/W from 06/03/2023 FINDINGS: Pulmonary parenchyma: No consolidation. 10 x 9 x 13 millimeter cavitary lesion in the superior right upper lobe. It shows thick wall and has an irregular, mildly spiculated appearance. Tracheobronchial tree: No bronchiectasis or mucous plugging. Mediastinum and Ankita: No dominant adenopathy or fluid collection. Pleura: No effusion. No pneumothorax. Heart: The heart is not dilated. Mild coronary artery calcifications are seen. Aorta: Thoracic aorta non-dilated. Mild atherosclerotic changes. Upper abdomen: No acute findings.. Bones: Degenerative changes in the spine. Soft tissues: Unremarkable. IMPRESSION: Single thick walled cavitary lesion in the right upper lobe measuring 13 millimeters in greatest dime nsion. Findings could represent metastatic disease versus primary malignancy. Biopsy should be cons idered for further evaluation. Unexpected findings RADIATION DOSE DELIVERED: Total DLP DATA REPOSITORY: All CT scans at this facility are submitted to the National Radiology Data Registry (NRDR) Dose Index Registry (DIR) with the [employer] (ACR). RADIATION OPTIMIZATION: All CT scans at this facility use at least one of these dose optimization te chniques: automated exposure control; mA and/or kV adjustment per patient size (includes targeted exa ms where dose is matched to clinical indication); or iterative reconstruction.
[2023-06-03 11:08] LABS: CREATININE 0.9 mg/dL (0.70-1.30); Estimated GFR 97.78 (mL/min/1.73m2)
[2023-06-03] MEDS: Omnipaque 350 MG/ML 100 ML BTL IJ (11:18)
[2023-06-03] MEDS: Normal Saline - Diluent 50 ML VIAL IJ ×2 (11:19→11:20)
== END ==
PROVIDERS: PCP Nurse Practitioner; Visit Provider Urology
DX: C67.9 Malignant neoplasm of bladder, unspecified (principal); R91.8 Other nonspecific abnormal finding of lung field
CPT/HCPCS: 71260; 74178; 82565; J3490

== ENCOUNTER 2023-06-07 11:34 | Outpatient (REF) | payer OTHER, SELFPAY ==
[2023-06-07 17:13] LABS: Rheumatoid Factor <8.6 IU/mL (<12.0)
[2023-06-10 09:51] LABS: Cyclic Citrullinated Peptide <2.5 U/mL (<5.0)
[2023-06-10 14:23] LABS: Myeloperoxidase Ab IgG <0.2 U; Proteinase 3 Ab (PR3) <0.2 U
[2023-06-10 14:29] LABS: Fungitell Qualitative Negative (Negative); Fungitell Quantitative Value <31 pg/mL (<60 pg/mL)
[2023-06-10 16:01] LABS: ANA Interpretation Positive (Negative); ANA Titer Pattern 1:160 Speckled
[2023-06-12 13:31] LABS: Blastomyces Ag Result Not Detected; Blastomyces Ag Value Not Detected
== END 2023-06-07 11:35 | disposition home or self-care (01) ==
LOC: LBN 11:34
PROVIDERS: PCP Nurse Practitioner; Visit Provider Student in an Organized Health Care Education/Training Program
DX: J98.4 Other disorders of lung (principal)
CPT/HCPCS: 86200; 87305; 87449; 83516; 86038; 86431

== ENCOUNTER 2023-08-26 06:00 | Outpatient (CLI) | payer OTHER, SELFPAY ==
[2023-08-26 10:28] LABS: Abs Immature Grans 0.03 10^3/uL (0.0-0.06); Absolute Basophil Count 0.02 10^3/uL (0.0-0.2); Absolute Lymphocyte Count 3.11 10^3/uL (1.2-3.4); Absolute Monocyte Count 0.83 10^3/uL (0.1-0.8); Absolute Neutrophil Count 3.91 10^3/uL (1.2-6.7); Basophils % 0.2 %; Eosinophils % 2.5 %; HCT 39.2 % (40.0-50.0); HGB 13.5 g/dL (13.5-17.5); Immature Grans % 0.4 %; Lymphocytes % 38.4 %; MCH 31.8 pg (27.0-33.0); MCHC 34.4 % (32.0-36.0); MCV 93 fL (80-95); MPV 10.1 fL (8.0-11.0); Monocytes % 10.2 %; Neutrophils % 48.3 %; Platelet Count 238 10^3/uL (130-400); RBC 4.24 10^6/uL (4.36-5.78); RDW-SD 43.8 fL
[2023-08-26 10:51] LABS: ALT 37 U/L (16-63); AST 19 U/L (15-37); Albumin 3.7 g/dL (3.4-5.0); Alkaline Phosphatase 78 U/L (46-116); Anion Gap 8.8 mmol/L (3-11); BUN 15 mg/dL (7-18); Bilirubin, Total 0.3 mg/dL (0.2-1.0); CO2 29.2 mmol/L (21.0-32.0); CREATININE 0.7 mg/dL (0.70-1.30); Calcium 9.2 mg/dL (8.5-10.1); Chloride 103 mmol/L (98-107); Estimated GFR 105.49 (mL/min/1.73m2); FREE T4 0.87 ng/dL (0.76-1.46); Glucose 79 mg/dL (74-106); Potassium 3.7 mmol/L (3.5-5.1); Sodium 141 mmol/L (136-145); TSH 0.93 uIU/Ml (0.36-3.74); Total Protein 7.2 g/dL (6.4-8.2)
== END 2023-08-26 06:01 | disposition home or self-care (01) ==
LOC: LBO 06:01
PROVIDERS: PCP Nurse Practitioner; Visit Provider Internal Medicine
DX: C79.10 Secondary malignant neoplasm of unspecified urinary organs (principal); Z79.899 Other long term (current) drug therapy; R94.6 Abnormal results of thyroid function studies
CPT/HCPCS: 36415; 80053; 84439; 84443; 85025

== ENCOUNTER 2023-09-03 05:01 | Outpatient (CLI) | payer OTHER, SELFPAY ==
[2023-09-03 07:46] LABS: Abs Immature Grans 0.02 10^3/uL (0.0-0.06); Absolute Basophil Count 0.06 10^3/uL (0.0-0.2); Absolute Eosinophil Count 0.29 10^3/uL (0.0-0.7); Absolute Lymphocyte Count 3.52 10^3/uL (1.2-3.4); Absolute Monocyte Count 0.92 10^3/uL (0.1-0.8); Absolute Neutrophil Count 3.33 10^3/uL (1.2-6.7); Basophils % 0.7 %; Eosinophils % 3.6 %; HCT 38.2 % (40.0-50.0); Immature Grans % 0.2 %; Lymphocytes % 43.2 %; MCH 31.7 pg (27.0-33.0); MCV 93 fL (80-95); MPV 10.2 fL (8.0-11.0); Monocytes % 11.3 %; Platelet Count 212 10^3/uL (130-400); RDW 12.7 % (11.8-14.1); RDW-SD 43.6 fL; WBC 8.14 10^3/uL (4.4-10.8)
[2023-09-03 08:16] LABS: ALT 59 U/L (16-63); AST 32 U/L (15-37); Albumin 3.7 g/dL (3.4-5.0); Alkaline Phosphatase 71 U/L (46-116); Anion Gap 10.5 mmol/L (3-11); BUN 17 mg/dL (7-18); Bilirubin, Total 0.4 mg/dL (0.2-1.0); CO2 26.5 mmol/L (21.0-32.0); CREATININE 0.9 mg/dL (0.70-1.30); Chloride 101 mmol/L (98-107); Estimated GFR 97.78 (mL/min/1.73m2); FREE T4 0.85 ng/dL (0.76-1.46); Glucose 125 mg/dL (74-106); Potassium 3.8 mmol/L (3.5-5.1); Sodium 138 mmol/L (136-145); TSH 1.74 uIU/Ml (0.36-3.74); Total Protein 6.8 g/dL (6.4-8.2)
== END 2023-09-03 05:02 | disposition home or self-care (01) ==
LOC: LBO 05:01
PROVIDERS: PCP Nurse Practitioner; Visit Provider Internal Medicine
DX: C79.10 Secondary malignant neoplasm of unspecified urinary organs (principal); Z79.899 Other long term (current) drug therapy; R94.6 Abnormal results of thyroid function studies
CPT/HCPCS: 36415; 80053; 84439; 84443; 85025

== ENCOUNTER 2023-09-17 02:51 | Outpatient (CLI) | payer OTHER, SELFPAY ==
[2023-09-17 09:53] LABS: Abs Immature Grans 0.02 10^3/uL (0.0-0.06); Absolute Basophil Count 0.05 10^3/uL (0.0-0.2); Absolute Eosinophil Count 0.23 10^3/uL (0.0-0.7); Absolute Lymphocyte Count 3.39 10^3/uL (1.2-3.4); Absolute Monocyte Count 0.77 10^3/uL (0.1-0.8); Absolute Neutrophil Count 2.82 10^3/uL (1.2-6.7); Basophils % 0.7 %; Eosinophils % 3.2 %; HCT 38.1 % (40.0-50.0); HGB 13.5 g/dL (13.5-17.5); Immature Grans % 0.3 %; Lymphocytes % 46.6 %; MCH 32.1 pg (27.0-33.0); MCHC 35.4 % (32.0-36.0); MCV 91 fL (80-95); MPV 10.2 fL (8.0-11.0); Monocytes % 10.6 %; Neutrophils % 38.6 %; Platelet Count 232 10^3/uL (130-400); RBC 4.21 10^6/uL (4.36-5.78); RDW 13.2 % (11.8-14.1); RDW-SD 42.9 fL; WBC 7.28 10^3/uL (4.4-10.8)
[2023-09-17 10:25] LABS: ALT 61 U/L (16-63); AST 30 U/L (15-37); Albumin 3.7 g/dL (3.4-5.0); Alkaline Phosphatase 76 U/L (46-116); Anion Gap 10.7 mmol/L (3-11); BUN 14 mg/dL (7-18); Bilirubin, Total 0.57 mg/dL (0.2-1.0); CO2 25.3 mmol/L (21.0-32.0); CREATININE 0.8 mg/dL (0.70-1.30); Calcium 9.1 mg/dL (8.5-10.1); Chloride 101 mmol/L (98-107); Estimated GFR 101.32 (mL/min/1.73m2); FREE T4 0.89 ng/dL (0.76-1.46); Glucose 115 mg/dL (74-106); Potassium 3.9 mmol/L (3.5-5.1); Sodium 137 mmol/L (136-145); TSH 1.29 uIU/Ml (0.36-3.74)
== END 2023-09-17 02:52 | disposition home or self-care (01) ==
LOC: LBO 02:51
PROVIDERS: PCP Nurse Practitioner; Visit Provider Internal Medicine
DX: C79.10 Secondary malignant neoplasm of unspecified urinary organs (principal); Z79.899 Other long term (current) drug therapy; R94.6 Abnormal results of thyroid function studies
CPT/HCPCS: 36415; 80053; 84439; 84443; 85025

== ENCOUNTER 2023-09-24 04:39 | Outpatient (CLI) | payer OTHER, SELFPAY ==
[2023-09-24 08:36] LABS: Abs Immature Grans 0.03 10^3/uL (0.0-0.06); Absolute Basophil Count 0.04 10^3/uL (0.0-0.2); Absolute Eosinophil Count 0.23 10^3/uL (0.0-0.7); Absolute Lymphocyte Count 3.66 10^3/uL (1.2-3.4); Absolute Monocyte Count 0.83 10^3/uL (0.1-0.8); Basophils % 0.5 %; Eosinophils % 3.1 %; HCT 38.7 % (40.0-50.0); HGB 13.7 g/dL (13.5-17.5); Immature Grans % 0.4 %; Lymphocytes % 49.5 %; MCH 32.1 pg (27.0-33.0); MCHC 35.4 % (32.0-36.0); MCV 91 fL (80-95); Monocytes % 11.2 %; Neutrophils % 35.3 %; Platelet Count 226 10^3/uL (130-400); RBC 4.27 10^6/uL (4.36-5.78); RDW 13.2 % (11.8-14.1); RDW-SD 43.2 fL; WBC 7.39 10^3/uL (4.4-10.8)
[2023-09-24 09:02] LABS: ALT 56 U/L (16-63); AST 26 U/L (15-37); Albumin 3.7 g/dL (3.4-5.0); Alkaline Phosphatase 70 U/L (46-116); BUN 18 mg/dL (7-18); Bilirubin, Total 0.39 mg/dL (0.2-1.0); CREATININE 0.8 mg/dL (0.70-1.30); Calcium 9.1 mg/dL (8.5-10.1); Chloride 103 mmol/L (98-107); Estimated GFR 101.32 (mL/min/1.73m2); FREE T4 0.89 ng/dL (0.76-1.46); Glucose 116 mg/dL (74-106); Potassium 3.9 mmol/L (3.5-5.1); Sodium 138 mmol/L (136-145); TSH 1.53 uIU/Ml (0.36-3.74); Total Protein 6.9 g/dL (6.4-8.2)
== END 2023-09-24 04:40 | disposition home or self-care (01) ==
LOC: LBO 04:39
PROVIDERS: PCP Nurse Practitioner; Visit Provider Internal Medicine
DX: C79.10 Secondary malignant neoplasm of unspecified urinary organs (principal); Z79.899 Other long term (current) drug therapy; R94.6 Abnormal results of thyroid function studies
CPT/HCPCS: 36415; 80053; 84439; 84443; 85025

== ENCOUNTER 2023-10-08 01:33 | Outpatient (CLI) | payer OTHER, SELFPAY ==
[2023-10-08 11:33] LABS: Abs Immature Grans 0.02 10^3/uL (0.0-0.06); Absolute Basophil Count 0.03 10^3/uL (0.0-0.2); Absolute Eosinophil Count 0.14 10^3/uL (0.0-0.7); Absolute Lymphocyte Count 2.75 10^3/uL (1.2-3.4); Absolute Monocyte Count 0.49 10^3/uL (0.1-0.8); Absolute Neutrophil Count 3.15 10^3/uL (1.2-6.7); Basophils % 0.5 %; Eosinophils % 2.1 %; HCT 39.2 % (40.0-50.0); HGB 13.4 g/dL (13.5-17.5); Immature Grans % 0.3 %; Lymphocytes % 41.8 %; MCH 31.6 pg (27.0-33.0); MCHC 34.2 % (32.0-36.0); MCV 93 fL (80-95); MPV 10.4 fL (8.0-11.0); Monocytes % 7.4 %; Neutrophils % 47.9 %; Platelet Count 232 10^3/uL (130-400); RBC 4.24 10^6/uL (4.36-5.78); RDW 13.2 % (11.8-14.1); RDW-SD 44.6 fL; WBC 6.58 10^3/uL (4.4-10.8)
[2023-10-08 11:51] LABS: ALT 42 U/L (16-63); AST 24 U/L (15-37); Albumin 3.8 g/dL (3.4-5.0); Alkaline Phosphatase 72 U/L (46-116); Anion Gap 10.3 mmol/L (3-11); BUN 17 mg/dL (7-18); Bilirubin, Total 0.67 mg/dL (0.2-1.0); CO2 26.7 mmol/L (21.0-32.0); CREATININE 0.9 mg/dL (0.70-1.30); Calcium 8.9 mg/dL (8.5-10.1); Chloride 103 mmol/L (98-107); Estimated GFR 97.78 (mL/min/1.73m2); FREE T4 0.93 ng/dL (0.76-1.46); Glucose 144 mg/dL (74-106); Potassium 3.2 mmol/L (3.5-5.1); Sodium 140 mmol/L (136-145); TSH 0.91 uIU/Ml (0.36-3.74)
== END 2023-10-08 01:34 | disposition home or self-care (01) ==
PROVIDERS: PCP Nurse Practitioner; Visit Provider Internal Medicine
DX: C79.10 Secondary malignant neoplasm of unspecified urinary organs (principal); Z79.899 Other long term (current) drug therapy; R94.6 Abnormal results of thyroid function studies
CPT/HCPCS: 36415; 80053; 84439; 84443; 85025

== ENCOUNTER 2023-10-14 02:24 | Outpatient (CLI) | payer OTHER, SELFPAY ==
[2023-10-14 09:39] LABS: Abs Immature Grans 0.04 10^3/uL (0.0-0.06); Absolute Basophil Count 0.04 10^3/uL (0.0-0.2); Absolute Eosinophil Count 0.23 10^3/uL (0.0-0.7); Absolute Lymphocyte Count 3.82 10^3/uL (1.2-3.4); Absolute Monocyte Count 0.83 10^3/uL (0.1-0.8); Basophils % 0.5 %; Eosinophils % 2.7 %; HCT 39.9 % (40.0-50.0); HGB 13.9 g/dL (13.5-17.5); Immature Grans % 0.5 %; Lymphocytes % 45.2 %; MCH 31.9 pg (27.0-33.0); MCHC 34.8 % (32.0-36.0); MCV 92 fL (80-95); MPV 9.8 fL (8.0-11.0); Monocytes % 9.8 %; Neutrophils % 41.3 %; Platelet Count 237 10^3/uL (130-400); RBC 4.36 10^6/uL (4.36-5.78); RDW 13.1 % (11.8-14.1); RDW-SD 43.7 fL; WBC 8.46 10^3/uL (4.4-10.8)
[2023-10-14 09:40] LABS: Bilirubin Negative (Negative); Blood Negative (Negative); Clarity Clear (Clear); Glucose Negative (Negative); Ketones Negative (Negative); Leukocyte Esterase Negative (Negative); Nitrite Negative (Negative); Urobilinogen 0.2 mg/dL (Up to 0.2)
[2023-10-14 10:07] LABS: ALT 49 U/L (16-63); AST 28 U/L (15-37); Alkaline Phosphatase 67 U/L (46-116); Anion Gap 9.5 mmol/L (3-11); BUN 15 mg/dL (7-18); Bilirubin, Total 0.63 mg/dL (0.2-1.0); CO2 26.5 mmol/L (21.0-32.0); CREATININE 0.9 mg/dL (0.70-1.30); Calcium 9.3 mg/dL (8.5-10.1); Chloride 103 mmol/L (98-107); Estimated GFR 97.78 (mL/min/1.73m2); FREE T4 0.91 ng/dL (0.76-1.46); Glucose 114 mg/dL (74-106); Sodium 139 mmol/L (136-145); TSH 1.53 uIU/Ml (0.36-3.74); Total Protein 7.2 g/dL (6.4-8.2)
== END 2023-10-14 02:25 | disposition home or self-care (01) ==
PROVIDERS: PCP Nurse Practitioner; Visit Provider Internal Medicine
DX: R30.0 Dysuria (principal); C79.10 Secondary malignant neoplasm of unspecified urinary organs; Z79.899 Other long term (current) drug therapy; R94.6 Abnormal results of thyroid function studies
CPT/HCPCS: 36415; 80053; 81003; 84439; 84443; 85025

== ENCOUNTER 2023-10-29 11:24 | Outpatient (CLI) | payer OTHER, SELFPAY ==
[2023-10-29 10:42] LABS: Abs Immature Grans 0.04 10^3/uL (0.0-0.06); Absolute Basophil Count 0.04 10^3/uL (0.0-0.2); Absolute Eosinophil Count 0.18 10^3/uL (0.0-0.7); Absolute Lymphocyte Count 3.26 10^3/uL (1.2-3.4); Absolute Monocyte Count 0.71 10^3/uL (0.1-0.8); Absolute Neutrophil Count 3.73 10^3/uL (1.2-6.7); Basophils % 0.5 %; Eosinophils % 2.3 %; HCT 39.3 % (40.0-50.0); HGB 13.6 g/dL (13.5-17.5); Immature Grans % 0.5 %; MCH 32.6 pg (27.0-33.0); MCHC 34.6 % (32.0-36.0); MCV 94 fL (80-95); MPV 10.2 fL (8.0-11.0); Monocytes % 8.9 %; Neutrophils % 46.8 %; Platelet Count 218 10^3/uL (130-400); RBC 4.17 10^6/uL (4.36-5.78); RDW 13.4 % (11.8-14.1); RDW-SD 46.2 fL; WBC 7.96 10^3/uL (4.4-10.8)
[2023-10-29 11:13] LABS: ALT 35 U/L (16-63); AST 18 U/L (15-37); Albumin 3.8 g/dL (3.4-5.0); Alkaline Phosphatase 63 U/L (46-116); Anion Gap 11.1 mmol/L (3-11); BUN 18 mg/dL (7-18); Bilirubin, Total 0.55 mg/dL (0.2-1.0); CO2 25.9 mmol/L (21.0-32.0); CREATININE 0.8 mg/dL (0.70-1.30); Calcium 9.6 mg/dL (8.5-10.1); Chloride 104 mmol/L (98-107); Estimated GFR 101.32 (mL/min/1.73m2); FREE T4 0.91 ng/dL (0.76-1.46); Glucose 109 mg/dL (74-106); Sodium 141 mmol/L (136-145); TSH 1.19 uIU/Ml (0.36-3.74); Total Protein 7.1 g/dL (6.4-8.2)
== END 2023-10-29 11:25 | disposition home or self-care (01) ==
LOC: LBO 11:24
PROVIDERS: PCP Nurse Practitioner; Visit Provider Internal Medicine
DX: C79.10 Secondary malignant neoplasm of unspecified urinary organs (principal); Z79.899 Other long term (current) drug therapy; R94.6 Abnormal results of thyroid function studies
CPT/HCPCS: 36415; 80053; 84439; 84443; 85025

== ENCOUNTER 2023-11-05 02:05 | Outpatient (CLI) | payer OTHER, SELFPAY ==
[2023-11-05 09:49] LABS: Abs Immature Grans 0.02 10^3/uL (0.0-0.06); Absolute Basophil Count 0.03 10^3/uL (0.0-0.2); Absolute Eosinophil Count 0.21 10^3/uL (0.0-0.7); Absolute Lymphocyte Count 3.01 10^3/uL (1.2-3.4); Absolute Monocyte Count 0.68 10^3/uL (0.1-0.8); Absolute Neutrophil Count 3.51 10^3/uL (1.2-6.7); Basophils % 0.4 %; Eosinophils % 2.8 %; HGB 13.5 g/dL (13.5-17.5); Immature Grans % 0.3 %; Lymphocytes % 40.3 %; MCH 32.3 pg (27.0-33.0); MCHC 34.6 % (32.0-36.0); MCV 93 fL (80-95); Monocytes % 9.1 %; Neutrophils % 47.1 %; Platelet Count 223 10^3/uL (130-400); RBC 4.18 10^6/uL (4.36-5.78); RDW 13.1 % (11.8-14.1); RDW-SD 44.4 fL; WBC 7.46 10^3/uL (4.4-10.8)
[2023-11-05 10:15] LABS: ALT 55 U/L (16-63); AST 27 U/L (15-37); Albumin 3.8 g/dL (3.4-5.0); Alkaline Phosphatase 68 U/L (46-116); Anion Gap 13.6 mmol/L (3-11); BUN 18 mg/dL (7-18); Bilirubin, Total 0.69 mg/dL (0.2-1.0); CO2 22.4 mmol/L (21.0-32.0); CREATININE 0.9 mg/dL (0.70-1.30); Calcium 9.3 mg/dL (8.5-10.1); Chloride 101 mmol/L (98-107); Estimated GFR 97.78 (mL/min/1.73m2); FREE T4 0.94 ng/dL (0.76-1.46); Glucose 134 mg/dL (74-106); Potassium 3.4 mmol/L (3.5-5.1); Sodium 137 mmol/L (136-145); TSH 1.18 uIU/Ml (0.36-3.74); Total Protein 7.1 g/dL (6.4-8.2)
== END 2023-11-05 02:06 | disposition home or self-care (01) ==
LOC: LBO 02:05
PROVIDERS: PCP Nurse Practitioner; Visit Provider Internal Medicine
DX: C79.10 Secondary malignant neoplasm of unspecified urinary organs (principal); Z79.899 Other long term (current) drug therapy; R94.6 Abnormal results of thyroid function studies
CPT/HCPCS: 36415; 80053; 84439; 84443; 85025

== ENCOUNTER 2023-11-19 05:20 | Outpatient (CLI) | payer OTHER, SELFPAY ==
[2023-11-19 10:48] LABS: Abs Immature Grans 0.04 10^3/uL (0.0-0.06); Absolute Basophil Count 0.05 10^3/uL (0.0-0.2); Absolute Lymphocyte Count 3.03 10^3/uL (1.2-3.4); Absolute Monocyte Count 0.98 10^3/uL (0.1-0.8); Absolute Neutrophil Count 4.77 10^3/uL (1.2-6.7); Basophils % 0.6 %; Eosinophils % 2.2 %; Immature Grans % 0.4 %; Lymphocytes % 33.4 %; MCH 32.6 pg (27.0-33.0); MCV 93 fL (80-95); MPV 10.1 fL (8.0-11.0); Monocytes % 10.8 %; Neutrophils % 52.6 %; Platelet Count 218 10^3/uL (130-400); RDW 13.2 % (11.8-14.1); RDW-SD 44.7 fL; WBC 9.07 10^3/uL (4.4-10.8)
[2023-11-19 11:19] LABS: ALT 38 U/L (16-63); AST 24 U/L (15-37); Albumin 3.8 g/dL (3.4-5.0); Alkaline Phosphatase 69 U/L (46-116); Anion Gap 12.2 mmol/L (3-11); BUN 15 mg/dL (7-18); Bilirubin, Total 0.76 mg/dL (0.2-1.0); CO2 22.8 mmol/L (21.0-32.0); CREATININE 0.8 mg/dL (0.70-1.30); Calcium 9.6 mg/dL (8.5-10.1); Chloride 101 mmol/L (98-107); Estimated GFR 101.32 (mL/min/1.73m2); FREE T4 0.91 ng/dL (0.76-1.46); Glucose 121 mg/dL (74-106); Potassium 3.7 mmol/L (3.5-5.1); Sodium 136 mmol/L (136-145); TSH 1.05 uIU/Ml (0.36-3.74); Total Protein 7.2 g/dL (6.4-8.2)
== END 2023-11-19 05:21 | disposition home or self-care (01) ==
LOC: LBO 05:22
PROVIDERS: PCP Nurse Practitioner; Visit Provider Internal Medicine
DX: C79.10 Secondary malignant neoplasm of unspecified urinary organs (principal); Z79.899 Other long term (current) drug therapy; R94.6 Abnormal results of thyroid function studies
CPT/HCPCS: 36415; 80053; 84439; 84443; 85025

== ENCOUNTER 2023-11-26 13:06 | Outpatient (CLI) | payer OTHER, SELFPAY ==
[2023-11-26 08:11] LABS: Abs Immature Grans 0.03 10^3/uL (0.0-0.06); Absolute Basophil Count 0.03 10^3/uL (0.0-0.2); Absolute Eosinophil Count 0.36 10^3/uL (0.0-0.7); Absolute Lymphocyte Count 2.72 10^3/uL (1.2-3.4); Absolute Neutrophil Count 2.72 10^3/uL (1.2-6.7); Basophils % 0.5 %; Eosinophils % 5.5 %; HCT 38.3 % (40.0-50.0); HGB 13.2 g/dL (13.5-17.5); Immature Grans % 0.5 %; Lymphocytes % 41.5 %; MCH 32.5 pg (27.0-33.0); MCHC 34.5 % (32.0-36.0); MCV 94 fL (80-95); MPV 10.1 fL (8.0-11.0); Monocytes % 10.7 %; Neutrophils % 41.3 %; Platelet Count 209 10^3/uL (130-400); RBC 4.06 10^6/uL (4.36-5.78); RDW 13.3 % (11.8-14.1); RDW-SD 46.3 fL; WBC 6.56 10^3/uL (4.4-10.8)
[2023-11-26 08:53] LABS: ALT 45 U/L (16-63); AST 25 U/L (15-37); Albumin 3.5 g/dL (3.4-5.0); Alkaline Phosphatase 64 U/L (46-116); BUN 10 mg/dL (7-18); CREATININE 0.8 mg/dL (0.70-1.30); Calcium 9.4 mg/dL (8.5-10.1); Chloride 102 mmol/L (98-107); Estimated GFR 101.32 (mL/min/1.73m2); FREE T4 0.89 ng/dL (0.76-1.46); Glucose 113 mg/dL (74-106); Potassium 3.7 mmol/L (3.5-5.1); Sodium 138 mmol/L (136-145); TSH 1.55 uIU/Ml (0.36-3.74); Total Protein 6.8 g/dL (6.4-8.2)
== END 2023-11-26 13:07 | disposition home or self-care (01) ==
PROVIDERS: PCP Nurse Practitioner; Visit Provider Internal Medicine
DX: C79.10 Secondary malignant neoplasm of unspecified urinary organs (principal); Z79.899 Other long term (current) drug therapy; R94.6 Abnormal results of thyroid function studies
CPT/HCPCS: 36415; 80053; 84439; 84443; 85025

== ENCOUNTER 2023-12-10 09:37 | Outpatient (CLI) | payer OTHER, SELFPAY ==
[2023-12-10 09:18] LABS: Abs Immature Grans 0.03 10^3/uL (0.0-0.06); Absolute Basophil Count 0.07 10^3/uL (0.0-0.2); Absolute Eosinophil Count 0.42 10^3/uL (0.0-0.7); Absolute Lymphocyte Count 2.95 10^3/uL (1.2-3.4); Absolute Monocyte Count 0.77 10^3/uL (0.1-0.8); Absolute Neutrophil Count 4.72 10^3/uL (1.2-6.7); Basophils % 0.8 %; Eosinophils % 4.7 %; HCT 36.9 % (40.0-50.0); HGB 13.1 g/dL (13.5-17.5); Immature Grans % 0.3 %; Lymphocytes % 32.9 %; MCH 32.9 pg (27.0-33.0); MCHC 35.5 % (32.0-36.0); MCV 93 fL (80-95); MPV 10.2 fL (8.0-11.0); Monocytes % 8.6 %; Neutrophils % 52.7 %; Platelet Count 275 10^3/uL (130-400); RBC 3.98 10^6/uL (4.36-5.78); RDW 13.4 % (11.8-14.1); RDW-SD 45.8 fL; WBC 8.96 10^3/uL (4.4-10.8)
[2023-12-10 09:44] LABS: ALT 35 U/L (16-63); AST 22 U/L (15-37); Albumin 3.4 g/dL (3.4-5.0); Alkaline Phosphatase 70 U/L (46-116); Anion Gap 8.6 mmol/L (3-11); BUN 21 mg/dL (7-18); Bilirubin, Total 0.36 mg/dL (0.2-1.0); CO2 25.4 mmol/L (21.0-32.0); CREATININE 0.8 mg/dL (0.70-1.30); Calcium 9.2 mg/dL (8.5-10.1); Chloride 102 mmol/L (98-107); Estimated GFR 101.32 (mL/min/1.73m2); FREE T4 0.85 ng/dL (0.76-1.46); Glucose 94 mg/dL (74-106); Potassium 3.9 mmol/L (3.5-5.1); Sodium 136 mmol/L (136-145); TSH 0.95 uIU/Ml (0.36-3.74); Total Protein 6.8 g/dL (6.4-8.2)
== END 2023-12-10 09:38 | disposition home or self-care (01) ==
LOC: LBO 09:38
PROVIDERS: PCP Nurse Practitioner; Visit Provider Internal Medicine
DX: C79.10 Secondary malignant neoplasm of unspecified urinary organs (principal); Z79.899 Other long term (current) drug therapy; R94.6 Abnormal results of thyroid function studies
CPT/HCPCS: 36415; 80053; 84439; 84443; 85025

== ENCOUNTER 2023-12-17 12:18 | Outpatient (CLI) | payer OTHER, SELFPAY ==
[2023-12-17 11:43] LABS: Abs Immature Grans 0.03 10^3/uL (0.0-0.06); Absolute Basophil Count 0.04 10^3/uL (0.0-0.2); Absolute Lymphocyte Count 2.17 10^3/uL (1.2-3.4); Absolute Monocyte Count 0.88 10^3/uL (0.1-0.8); Absolute Neutrophil Count 5.01 10^3/uL (1.2-6.7); Basophils % 0.5 %; Eosinophils % 5.8 %; HCT 38.6 % (40.0-50.0); HGB 13.2 g/dL (13.5-17.5); Immature Grans % 0.3 %; Lymphocytes % 25.1 %; MCH 32.3 pg (27.0-33.0); MCHC 34.2 % (32.0-36.0); MCV 94 fL (80-95); MPV 10.1 fL (8.0-11.0); Monocytes % 10.2 %; Neutrophils % 58.1 %; Platelet Count 239 10^3/uL (130-400); RBC 4.09 10^6/uL (4.36-5.78); RDW 13.3 % (11.8-14.1); RDW-SD 46.1 fL; WBC 8.63 10^3/uL (4.4-10.8)
[2023-12-17 12:12] LABS: ALT 47 U/L (16-63); AST 26 U/L (15-37); Albumin 3.5 g/dL (3.4-5.0); Alkaline Phosphatase 69 U/L (46-116); Anion Gap 9.1 mmol/L (3-11); BUN 17 mg/dL (7-18); Bilirubin, Total 0.51 mg/dL (0.2-1.0); CO2 25.9 mmol/L (21.0-32.0); CREATININE 0.8 mg/dL (0.70-1.30); Calcium 9.1 mg/dL (8.5-10.1); Chloride 99 mmol/L (98-107); Estimated GFR 101.32 (mL/min/1.73m2); FREE T4 0.83 ng/dL (0.76-1.46); Glucose 113 mg/dL (74-106); Potassium 3.8 mmol/L (3.5-5.1); Sodium 134 mmol/L (136-145)
== END 2023-12-17 12:19 | disposition home or self-care (01) ==
LOC: LBO 12:18
PROVIDERS: PCP Nurse Practitioner; Visit Provider Internal Medicine
DX: C79.10 Secondary malignant neoplasm of unspecified urinary organs (principal); Z79.899 Other long term (current) drug therapy; R94.6 Abnormal results of thyroid function studies
CPT/HCPCS: 36415; 80053; 84439; 84443; 85025

== ENCOUNTER 2023-12-31 02:33 | Outpatient (CLI) | payer OTHER, SELFPAY ==
[2023-12-31 08:06] LABS: Abs Immature Grans 0.04 10^3/uL (0.0-0.06); Absolute Basophil Count 0.06 10^3/uL (0.0-0.2); Absolute Eosinophil Count 0.54 10^3/uL (0.0-0.7); Absolute Lymphocyte Count 2.63 10^3/uL (1.2-3.4); Absolute Monocyte Count 0.98 10^3/uL (0.1-0.8); Absolute Neutrophil Count 4.73 10^3/uL (1.2-6.7); Basophils % 0.7 %; HCT 37.8 % (40.0-50.0); HGB 12.9 g/dL (13.5-17.5); Immature Grans % 0.4 %; Lymphocytes % 29.3 %; MCH 32.4 pg (27.0-33.0); MCHC 34.1 % (32.0-36.0); MCV 95 fL (80-95); Monocytes % 10.9 %; Neutrophils % 52.7 %; Platelet Count 270 10^3/uL (130-400); RBC 3.98 10^6/uL (4.36-5.78); RDW 13.3 % (11.8-14.1); RDW-SD 46.5 fL; WBC 8.98 10^3/uL (4.4-10.8)
[2023-12-31 08:32] LABS: ALT 37 U/L (16-63); AST 21 U/L (15-37); Albumin 3.3 g/dL (3.4-5.0); Alkaline Phosphatase 68 U/L (46-116); Anion Gap 11.7 mmol/L (3-11); BUN 14 mg/dL (7-18); Bilirubin, Total 0.24 mg/dL (0.2-1.0); CO2 23.3 mmol/L (21.0-32.0); CREATININE 0.9 mg/dL (0.70-1.30); Calcium 9.3 mg/dL (8.5-10.1); Chloride 109 mmol/L (98-107); Estimated GFR 97.78 (mL/min/1.73m2); FREE T4 0.87 ng/dL (0.76-1.46); Glucose 151 mg/dL (74-106); Potassium 3.4 mmol/L (3.5-5.1); Sodium 144 mmol/L (136-145); TSH 1.33 uIU/mL (0.36-3.74); Total Protein 6.5 g/dL (6.4-8.2)
== END 2023-12-31 02:34 | disposition home or self-care (01) ==
PROVIDERS: PCP Nurse Practitioner; Visit Provider Internal Medicine
DX: C79.10 Secondary malignant neoplasm of unspecified urinary organs (principal); Z79.899 Other long term (current) drug therapy; R94.6 Abnormal results of thyroid function studies
CPT/HCPCS: 36415; 80053; 84439; 84443; 85025

== ENCOUNTER 2024-01-07 01:56 | Outpatient (CLI) | payer OTHER, SELFPAY ==
[2024-01-07 09:00] LABS: Abs Immature Grans 0.04 10^3/uL (0.0-0.06); Absolute Basophil Count 0.04 10^3/uL (0.0-0.2); Absolute Eosinophil Count 0.61 10^3/uL (0.0-0.7); Absolute Lymphocyte Count 2.68 10^3/uL (1.2-3.4); Absolute Monocyte Count 0.91 10^3/uL (0.1-0.8); Absolute Neutrophil Count 4.06 10^3/uL (1.2-6.7); Basophils % 0.5 %; Eosinophils % 7.3 %; HCT 39.6 % (40.0-50.0); HGB 13.6 g/dL (13.5-17.5); Immature Grans % 0.5 %; Lymphocytes % 32.1 %; MCH 32.5 pg (27.0-33.0); MCHC 34.3 % (32.0-36.0); MCV 95 fL (80-95); Monocytes % 10.9 %; Neutrophils % 48.7 %; Platelet Count 255 10^3/uL (130-400); RBC 4.19 10^6/uL (4.36-5.78); RDW 13.3 % (11.8-14.1); RDW-SD 45.5 fL; WBC 8.34 10^3/uL (4.4-10.8)
[2024-01-07 09:24] LABS: ALT 42 U/L (16-63); AST 27 U/L (15-37); Albumin 3.2 g/dL (3.4-5.0); Alkaline Phosphatase 62 U/L (46-116); Anion Gap 11.3 mmol/L (3-11); BUN 13 mg/dL (7-18); Bilirubin, Total 0.29 mg/dL (0.2-1.0); CO2 22.7 mmol/L (21.0-32.0); CREATININE 0.9 mg/dL (0.70-1.30); Calcium 9.3 mg/dL (8.5-10.1); Chloride 108 mmol/L (98-107); Estimated GFR 97.78 (mL/min/1.73m2); FREE T4 0.86 ng/dL (0.76-1.46); Glucose 137 mg/dL (74-106); Potassium 3.3 mmol/L (3.5-5.1); Sodium 142 mmol/L (136-145); TSH 1.19 uIU/mL (0.36-3.74); Total Protein 6.6 g/dL (6.4-8.2)
== END 2024-01-07 01:57 | disposition home or self-care (01) ==
LOC: LBO 01:57
PROVIDERS: PCP Nurse Practitioner; Visit Provider Internal Medicine
DX: C79.10 Secondary malignant neoplasm of unspecified urinary organs (principal); Z79.899 Other long term (current) drug therapy; R94.6 Abnormal results of thyroid function studies
CPT/HCPCS: 36415; 80053; 84439; 84443; 85025

== ENCOUNTER 2024-01-21 02:11 | Outpatient (CLI) | payer OTHER, SELFPAY ==
[2024-01-21 11:10] LABS: Abs Immature Grans 0.07 10^3/uL (0.0-0.06); Absolute Basophil Count 0.03 10^3/uL (0.0-0.2); Absolute Eosinophil Count 0.59 10^3/uL (0.0-0.7); Absolute Lymphocyte Count 3.42 10^3/uL (1.2-3.4); Absolute Neutrophil Count 5.04 10^3/uL (1.2-6.7); Basophils % 0.3 %; Eosinophils % 5.9 %; HCT 39.4 % (40.0-50.0); HGB 13.6 g/dL (13.5-17.5); Immature Grans % 0.7 %; Lymphocytes % 34.4 %; MCH 31.9 pg (27.0-33.0); MCHC 34.5 % (32.0-36.0); MCV 93 fL (80-95); MPV 10.2 fL (8.0-11.0); Neutrophils % 50.7 %; Platelet Count 253 10^3/uL (130-400); RBC 4.26 10^6/uL (4.36-5.78); RDW 13.3 % (11.8-14.1); RDW-SD 45.2 fL; WBC 9.95 10^3/uL (4.4-10.8)
[2024-01-21 11:33] LABS: ALT 53 U/L (16-63); AST 27 U/L (15-37); Albumin 3.5 g/dL (3.4-5.0); Alkaline Phosphatase 67 U/L (46-116); Anion Gap 8.1 mmol/L (3-11); BUN 17 mg/dL (7-18); Bilirubin, Total 0.36 mg/dL (0.2-1.0); CO2 25.9 mmol/L (21.0-32.0); CREATININE 0.7 mg/dL (0.70-1.30); Calcium 9.4 mg/dL (8.5-10.1); Chloride 106 mmol/L (98-107); Estimated GFR 105.49 (mL/min/1.73m2); FREE T4 0.75 ng/dL (0.76-1.46); Glucose 132 mg/dL (74-106); Potassium 3.9 mmol/L (3.5-5.1); Sodium 140 mmol/L (136-145); TSH 1.32 uIU/mL (0.36-3.74)
== END 2024-01-21 02:12 | disposition home or self-care (01) ==
LOC: LBO 02:12
PROVIDERS: PCP Nurse Practitioner; Visit Provider Internal Medicine
DX: C79.10 Secondary malignant neoplasm of unspecified urinary organs (principal); Z79.899 Other long term (current) drug therapy; R94.6 Abnormal results of thyroid function studies
CPT/HCPCS: 36415; 80053; 84439; 84443; 85025

== ENCOUNTER 2024-01-28 04:27 | Outpatient (CLI) | payer OTHER, SELFPAY ==
[2024-01-28 10:46] LABS: Abs Immature Grans 0.03 10^3/uL (0.0-0.06); Absolute Basophil Count 0.02 10^3/uL (0.0-0.2); Absolute Eosinophil Count 0.44 10^3/uL (0.0-0.7); Absolute Lymphocyte Count 3.06 10^3/uL (1.2-3.4); Basophils % 0.3 %; Eosinophils % 5.5 %; HCT 38.8 % (40.0-50.0); HGB 13.4 g/dL (13.5-17.5); Immature Grans % 0.4 %; Lymphocytes % 38.5 %; MCH 31.5 pg (27.0-33.0); MCHC 34.5 % (32.0-36.0); MCV 91 fL (80-95); MPV 10.3 fL (8.0-11.0); Monocytes % 11.3 %; Platelet Count 240 10^3/uL (130-400); RBC 4.25 10^6/uL (4.36-5.78); RDW 13.1 % (11.8-14.1); RDW-SD 43.9 fL; WBC 7.95 10^3/uL (4.4-10.8)
[2024-01-28 11:13] LABS: ALT 48 U/L (16-63); AST 23 U/L (15-37); Albumin 3.6 g/dL (3.4-5.0); Alkaline Phosphatase 63 U/L (46-116); Anion Gap 8.2 mmol/L (3-11); BUN 16 mg/dL (7-18); Bilirubin, Total 0.55 mg/dL (0.2-1.0); CO2 26.8 mmol/L (21.0-32.0); CREATININE 0.7 mg/dL (0.70-1.30); Calcium 9.4 mg/dL (8.5-10.1); Chloride 106 mmol/L (98-107); Estimated GFR 105.49 (mL/min/1.73m2); FREE T4 0.82 ng/dL (0.76-1.46); Glucose 115 mg/dL (74-106); Potassium 3.9 mmol/L (3.5-5.1); Sodium 141 mmol/L (136-145); TSH 1.19 uIU/mL (0.36-3.74); Total Protein 6.9 g/dL (6.4-8.2)
== END 2024-01-28 04:28 | disposition home or self-care (01) ==
LOC: LBO 04:27
PROVIDERS: PCP Nurse Practitioner; Visit Provider Internal Medicine
DX: C79.10 Secondary malignant neoplasm of unspecified urinary organs (principal); Z79.899 Other long term (current) drug therapy; R94.6 Abnormal results of thyroid function studies
CPT/HCPCS: 36415; 80053; 84439; 84443; 85025

== ENCOUNTER 2024-02-11 02:41 | Outpatient (CLI) | payer OTHER, SELFPAY ==
[2024-02-11 08:06] LABS: Abs Immature Grans 0.04 10^3/uL (0.0-0.06); Absolute Basophil Count 0.01 10^3/uL (0.0-0.2); Absolute Eosinophil Count 0.54 10^3/uL (0.0-0.7); Absolute Lymphocyte Count 3.41 10^3/uL (1.2-3.4); Absolute Monocyte Count 1.12 10^3/uL (0.1-0.8); Absolute Neutrophil Count 3.78 10^3/uL (1.2-6.7); Basophils % 0.1 %; Eosinophils % 6.1 %; HCT 39.7 % (40.0-50.0); HGB 13.7 g/dL (13.5-17.5); Immature Grans % 0.4 %; Lymphocytes % 38.3 %; MCH 31.8 pg (27.0-33.0); MCHC 34.5 % (32.0-36.0); MCV 92 fL (80-95); MPV 10.6 fL (8.0-11.0); Monocytes % 12.6 %; Neutrophils % 42.5 %; Platelet Count 231 10^3/uL (130-400); RBC 4.31 10^6/uL (4.36-5.78); RDW 13.2 % (11.8-14.1); RDW-SD 44.6 fL
[2024-02-11 08:32] LABS: ALT 79 U/L (16-63); AST 34 U/L (15-37); Albumin 3.6 g/dL (3.4-5.0); Alkaline Phosphatase 65 U/L (46-116); BUN 18 mg/dL (7-18); Bilirubin, Total 0.41 mg/dL (0.2-1.0); CREATININE 0.8 mg/dL (0.70-1.30); Chloride 106 mmol/L (98-107); Estimated GFR 101.32 (mL/min/1.73m2); Glucose 106 mg/dL (74-106); Sodium 142 mmol/L (136-145); TSH 1.54 uIU/mL (0.36-3.74); Total Protein 6.9 g/dL (6.4-8.2)
== END 2024-02-11 02:42 | disposition home or self-care (01) ==
LOC: LBO 02:41
PROVIDERS: PCP Nurse Practitioner; Visit Provider Internal Medicine
DX: C79.10 Secondary malignant neoplasm of unspecified urinary organs (principal); Z79.899 Other long term (current) drug therapy; R94.6 Abnormal results of thyroid function studies
CPT/HCPCS: 36415; 80053; 84439; 84443; 85025

== ENCOUNTER 2024-02-18 12:32 | Outpatient (CLI) | payer OTHER, SELFPAY ==
[2024-02-18 12:32] LABS: Abs Immature Grans 0.03 10^3/uL (0.0-0.06); Absolute Basophil Count 0.01 10^3/uL (0.0-0.2); Absolute Eosinophil Count 0.68 10^3/uL (0.0-0.7); Absolute Lymphocyte Count 3.66 10^3/uL (1.2-3.4); Absolute Monocyte Count 1.06 10^3/uL (0.1-0.8); Absolute Neutrophil Count 3.96 10^3/uL (1.2-6.7); Basophils % 0.1 %; Eosinophils % 7.2 %; HCT 37.3 % (40.0-50.0); HGB 13.1 g/dL (13.5-17.5); Immature Grans % 0.3 %; Lymphocytes % 38.9 %; MCH 31.6 pg (27.0-33.0); MCHC 35.1 % (32.0-36.0); MCV 90 fL (80-95); MPV 10.1 fL (8.0-11.0); Monocytes % 11.3 %; Neutrophils % 42.2 %; Platelet Count 221 10^3/uL (130-400); RBC 4.14 10^6/uL (4.36-5.78); RDW 13.2 % (11.8-14.1); RDW-SD 43.7 fL
[2024-02-18 13:06] LABS: ALT 43 U/L (16-63); AST 18 U/L (15-37); Albumin 3.6 g/dL (3.4-5.0); Alkaline Phosphatase 63 U/L (46-116); Anion Gap 11.2 mmol/L (3-11); BUN 19 mg/dL (7-18); Bilirubin, Total 0.37 mg/dL (0.2-1.0); CO2 24.8 mmol/L (21.0-32.0); CREATININE 0.8 mg/dL (0.70-1.30); Calcium 9.1 mg/dL (8.5-10.1); Chloride 104 mmol/L (98-107); Estimated GFR 101.32 (mL/min/1.73m2); FREE T4 0.86 ng/dL (0.76-1.46); Glucose 104 mg/dL (74-106); Potassium 3.8 mmol/L (3.5-5.1); Sodium 140 mmol/L (136-145); TSH 1.31 uIU/mL (0.36-3.74); Total Protein 6.6 g/dL (6.4-8.2)
== END 2024-02-18 12:33 | disposition home or self-care (01) ==
LOC: LBO 12:33
PROVIDERS: PCP Nurse Practitioner; Visit Provider Internal Medicine
DX: C79.10 Secondary malignant neoplasm of unspecified urinary organs (principal); Z79.899 Other long term (current) drug therapy; R94.6 Abnormal results of thyroid function studies
CPT/HCPCS: 36415; 80053; 84439; 84443; 85025

== ENCOUNTER 2024-03-03 10:31 | Outpatient (CLI) | payer OTHER, SELFPAY ==
[2024-03-03 10:13] LABS: Abs Immature Grans 0.03 10^3/uL (0.0-0.06); Absolute Basophil Count 0.01 10^3/uL (0.0-0.2); Absolute Eosinophil Count 0.42 10^3/uL (0.0-0.7); Absolute Monocyte Count 0.86 10^3/uL (0.1-0.8); Absolute Neutrophil Count 4.04 10^3/uL (1.2-6.7); Basophils % 0.1 %; Eosinophils % 4.9 %; HCT 38.4 % (40.0-50.0); HGB 13.3 g/dL (13.5-17.5); Immature Grans % 0.4 %; Lymphocytes % 37.4 %; MCH 31.6 pg (27.0-33.0); MCHC 34.6 % (32.0-36.0); MCV 91 fL (80-95); MPV 10.3 fL (8.0-11.0); Neutrophils % 47.2 %; Platelet Count 236 10^3/uL (130-400); RBC 4.21 10^6/uL (4.36-5.78); RDW 13.3 % (11.8-14.1); RDW-SD 44.2 fL; WBC 8.56 10^3/uL (4.4-10.8)
[2024-03-03 10:36] LABS: Albumin 3.6 g/dL (3.4-5.0); Alkaline Phosphatase 62 U/L (46-116); BUN 15 mg/dL (7-18); Bilirubin, Total 0.48 mg/dL (0.2-1.0); CREATININE 0.8 mg/dL (0.70-1.30); Calcium 9.3 mg/dL (8.5-10.1); Chloride 107 mmol/L (98-107); Estimated GFR 101.32 (mL/min/1.73m2); Glucose 114 mg/dL (74-106); Sodium 142 mmol/L (136-145); Total Protein 6.7 g/dL (6.4-8.2)
[2024-03-03 10:37] LABS: ALT 46 U/L (16-63); AST 24 U/L (15-37); Anion Gap 9.5 mmol/L (3-11); CO2 25.5 mmol/L (21.0-32.0); FREE T4 0.83 ng/dL (0.76-1.46); TSH 1.01 uIU/mL (0.36-3.74)
== END 2024-03-03 10:32 | disposition home or self-care (01) ==
LOC: LBO 10:33
PROVIDERS: PCP Nurse Practitioner; Visit Provider Internal Medicine
DX: C79.10 Secondary malignant neoplasm of unspecified urinary organs (principal); Z79.899 Other long term (current) drug therapy; R94.6 Abnormal results of thyroid function studies
CPT/HCPCS: 36415; 80053; 84439; 84443; 85025

== ENCOUNTER 2024-03-10 13:54 | Outpatient (CLI) | payer OTHER, SELFPAY ==
[2024-03-10 10:58] LABS: Abs Immature Grans 0.05 10^3/uL (0.0-0.06); Absolute Eosinophil Count 0.51 10^3/uL (0.0-0.7); Absolute Lymphocyte Count 3.12 10^3/uL (1.2-3.4); Absolute Monocyte Count 1.05 10^3/uL (0.1-0.8); Absolute Neutrophil Count 3.48 10^3/uL (1.2-6.7); Eosinophils % 6.2 %; HCT 38.2 % (40.0-50.0); HGB 13.6 g/dL (13.5-17.5); Immature Grans % 0.6 %; MCH 31.5 pg (27.0-33.0); MCHC 35.6 % (32.0-36.0); MCV 88 fL (80-95); MPV 10.1 fL (8.0-11.0); Monocytes % 12.8 %; Neutrophils % 42.4 %; Platelet Count 221 10^3/uL (130-400); RBC 4.32 10^6/uL (4.36-5.78); RDW 13.4 % (11.8-14.1); RDW-SD 43.6 fL; WBC 8.21 10^3/uL (4.4-10.8)
[2024-03-10 11:30] LABS: ALT 43 U/L (16-63); AST 21 U/L (15-37); Albumin 3.7 g/dL (3.4-5.0); Alkaline Phosphatase 63 U/L (46-116); Anion Gap 10.8 mmol/L (3-11); BUN 17 mg/dL (7-18); Bilirubin, Total 0.54 mg/dL (0.2-1.0); CO2 26.2 mmol/L (21.0-32.0); CREATININE 0.8 mg/dL (0.70-1.30); Calcium 9.3 mg/dL (8.5-10.1); Chloride 104 mmol/L (98-107); Estimated GFR 101.32 (mL/min/1.73m2); Glucose 113 mg/dL (74-106); Potassium 3.8 mmol/L (3.5-5.1); Sodium 141 mmol/L (136-145); TSH 1.37 uIU/mL (0.36-3.74); Total Protein 6.9 g/dL (6.4-8.2)
[2024-03-10 11:49] LABS: FREE T4 0.84 ng/dL (0.76-1.46)
== END 2024-03-10 13:55 | disposition home or self-care (01) ==
LOC: LBO 13:55
PROVIDERS: PCP Nurse Practitioner; Visit Provider Internal Medicine
DX: C79.10 Secondary malignant neoplasm of unspecified urinary organs (principal)
CPT/HCPCS: 36415; 80053; 84439; 84443; 85025

== ENCOUNTER 2024-03-24 03:25 | Outpatient (CLI) | payer BC, SELFPAY ==
[2024-03-24 10:28] LABS: Abs Immature Grans 0.04 10^3/uL (0.0-0.06); Absolute Basophil Count 0.01 10^3/uL (0.0-0.2); Absolute Eosinophil Count 0.53 10^3/uL (0.0-0.7); Absolute Lymphocyte Count 3.31 10^3/uL (1.2-3.4); Absolute Monocyte Count 0.94 10^3/uL (0.1-0.8); Absolute Neutrophil Count 4.44 10^3/uL (1.2-6.7); Basophils % 0.1 %; Eosinophils % 5.7 %; HCT 38.7 % (40.0-50.0); HGB 13.5 g/dL (13.5-17.5); Immature Grans % 0.4 %; Lymphocytes % 35.7 %; MCH 31.6 pg (27.0-33.0); MCHC 34.9 % (32.0-36.0); MCV 91 fL (80-95); MPV 10.3 fL (8.0-11.0); Monocytes % 10.1 %; Platelet Count 210 10^3/uL (130-400); RBC 4.27 10^6/uL (4.36-5.78); RDW 13.6 % (11.8-14.1); RDW-SD 44.6 fL; WBC 9.27 10^3/uL (4.4-10.8)
[2024-03-24 10:53] LABS: ALT 40 U/L (16-63); AST 21 U/L (15-37); Albumin 3.7 g/dL (3.4-5.0); Alkaline Phosphatase 69 U/L (46-116); Anion Gap 5.7 mmol/L (3-11); BUN 13 mg/dL (7-18); Bilirubin, Total 0.44 mg/dL (0.2-1.0); CO2 28.3 mmol/L (21.0-32.0); CREATININE 0.8 mg/dL (0.70-1.30); Calcium 9.5 mg/dL (8.5-10.1); Chloride 107 mmol/L (98-107); Estimated GFR 101.32 (mL/min/1.73m2); FREE T4 0.75 ng/dL (0.76-1.46); Glucose 106 mg/dL (74-106); Sodium 141 mmol/L (136-145)
== END 2024-03-24 03:26 | disposition home or self-care (01) ==
LOC: LBO 03:26
PROVIDERS: PCP Nurse Practitioner; Visit Provider Internal Medicine
DX: C79.10 Secondary malignant neoplasm of unspecified urinary organs (principal)
CPT/HCPCS: 36415; 80053; 84439; 84443; 85025

== ENCOUNTER 2024-03-31 03:19 | Outpatient (CLI) | payer BC, SELFPAY ==
[2024-03-31 10:10] LABS: Abs Immature Grans 0.05 10^3/uL (0.0-0.06); Absolute Basophil Count 0.01 10^3/uL (0.0-0.2); Absolute Eosinophil Count 1.21 10^3/uL (0.0-0.7); Absolute Lymphocyte Count 3.35 10^3/uL (1.2-3.4); Absolute Monocyte Count 0.86 10^3/uL (0.1-0.8); Absolute Neutrophil Count 3.27 10^3/uL (1.2-6.7); Basophils % 0.1 %; Eosinophils % 13.8 %; HCT 40.6 % (40.0-50.0); HGB 14.2 g/dL (13.5-17.5); Immature Grans % 0.6 %; Lymphocytes % 38.3 %; MCH 31.2 pg (27.0-33.0); MCV 89 fL (80-95); MPV 10.3 fL (8.0-11.0); Monocytes % 9.8 %; Neutrophils % 37.4 %; Platelet Count 231 10^3/uL (130-400); RBC 4.55 10^6/uL (4.36-5.78); RDW 13.5 % (11.8-14.1); WBC 8.75 10^3/uL (4.4-10.8)
[2024-03-31 10:34] LABS: ALT 39 U/L (16-63); AST 17 U/L (15-37); Albumin 3.6 g/dL (3.4-5.0); Alkaline Phosphatase 61 U/L (46-116); Anion Gap 5.9 mmol/L (3-11); BUN 18 mg/dL (7-18); CO2 29.1 mmol/L (21.0-32.0); CREATININE 0.8 mg/dL (0.70-1.30); Calcium 8.8 mg/dL (8.5-10.1); Chloride 106 mmol/L (98-107); Estimated GFR 101.32 (mL/min/1.73m2); FREE T4 0.85 ng/dL (0.76-1.46); Glucose 111 mg/dL (74-106); Potassium 3.9 mmol/L (3.5-5.1); Sodium 141 mmol/L (136-145); Total Protein 6.8 g/dL (6.4-8.2)
== END 2024-03-31 03:20 | disposition home or self-care (01) ==
LOC: LBO 03:20
PROVIDERS: PCP Nurse Practitioner; Visit Provider Internal Medicine
DX: C79.10 Secondary malignant neoplasm of unspecified urinary organs (principal)
CPT/HCPCS: 36415; 80053; 84439; 84443; 85025

== ENCOUNTER 2024-04-14 13:08 | Outpatient (CLI) | payer BC, SELFPAY ==
[2024-04-14 10:25] LABS: Abs Immature Grans 0.03 10^3/uL (0.0-0.06); Absolute Basophil Count 0.01 10^3/uL (0.0-0.2); Absolute Eosinophil Count 0.93 10^3/uL (0.0-0.7); Absolute Lymphocyte Count 2.95 10^3/uL (1.2-3.4); Absolute Monocyte Count 0.92 10^3/uL (0.1-0.8); Absolute Neutrophil Count 3.68 10^3/uL (1.2-6.7); Basophils % 0.1 %; Eosinophils % 10.9 %; HCT 39.6 % (40.0-50.0); HGB 13.7 g/dL (13.5-17.5); Immature Grans % 0.4 %; Lymphocytes % 34.6 %; MCH 31.3 pg (27.0-33.0); MCHC 34.6 % (32.0-36.0); MCV 90 fL (80-95); MPV 10.4 fL (8.0-11.0); Monocytes % 10.8 %; Neutrophils % 43.2 %; Platelet Count 203 10^3/uL (130-400); RBC 4.38 10^6/uL (4.36-5.78); RDW 13.6 % (11.8-14.1); RDW-SD 44.5 fL; WBC 8.52 10^3/uL (4.4-10.8)
[2024-04-14 10:51] LABS: ALT 81 U/L (16-63); AST 32 U/L (15-37); Albumin 3.8 g/dL (3.4-5.0); Alkaline Phosphatase 64 U/L (46-116); Anion Gap 8.7 mmol/L (3-11); BUN 14 mg/dL (7-18); Bilirubin, Total 0.57 mg/dL (0.2-1.0); CO2 26.3 mmol/L (21.0-32.0); CREATININE 0.8 mg/dL (0.70-1.30); Calcium 9.6 mg/dL (8.5-10.1); Chloride 105 mmol/L (98-107); Estimated GFR 101.32 (mL/min/1.73m2); FREE T4 0.79 ng/dL (0.76-1.46); Glucose 121 mg/dL (74-106); Potassium 3.9 mmol/L (3.5-5.1); Sodium 140 mmol/L (136-145); TSH 1.42 uIU/mL (0.36-3.74); Total Protein 7.1 g/dL (6.4-8.2)
== END 2024-04-14 13:09 | disposition home or self-care (01) ==
LOC: LBO 13:31
PROVIDERS: PCP Nurse Practitioner; Visit Provider Internal Medicine
DX: C79.10 Secondary malignant neoplasm of unspecified urinary organs (principal)
CPT/HCPCS: 36415; 80053; 84439; 84443; 85025

== ENCOUNTER 2024-04-21 12:33 | Outpatient (CLI) | payer BC, SELFPAY ==
[2024-04-21 11:59] LABS: Abs Immature Grans 0.04 10^3/uL (0.0-0.06); Absolute Basophil Count 0.01 10^3/uL (0.0-0.2); Absolute Eosinophil Count 1.55 10^3/uL (0.0-0.7); Absolute Lymphocyte Count 3.69 10^3/uL (1.2-3.4); Absolute Monocyte Count 1.13 10^3/uL (0.1-0.8); Absolute Neutrophil Count 3.73 10^3/uL (1.2-6.7); Basophils % 0.1 %; Eosinophils % 15.3 %; Immature Grans % 0.4 %; Lymphocytes % 36.4 %; MCH 31.4 pg (27.0-33.0); MCV 90 fL (80-95); MPV 10.1 fL (8.0-11.0); Monocytes % 11.1 %; Neutrophils % 36.7 %; Platelet Count 231 10^3/uL (130-400); RBC 4.46 10^6/uL (4.36-5.78); RDW 13.2 % (11.8-14.1); RDW-SD 43.4 fL; WBC 10.15 10^3/uL (4.4-10.8)
[2024-04-21 12:24] LABS: ALT 58 U/L (16-63); AST 21 U/L (15-37); Albumin 3.9 g/dL (3.4-5.0); Alkaline Phosphatase 71 U/L (46-116); Anion Gap 9.5 mmol/L (3-11); BUN 18 mg/dL (7-18); CO2 26.5 mmol/L (21.0-32.0); CREATININE 0.7 mg/dL (0.70-1.30); Calcium 9.4 mg/dL (8.5-10.1); Chloride 103 mmol/L (98-107); Estimated GFR 105.49 (mL/min/1.73m2); FREE T4 0.82 ng/dL (0.76-1.46); Glucose 103 mg/dL (74-106); Potassium 3.8 mmol/L (3.5-5.1); Sodium 139 mmol/L (136-145); TSH 1.66 uIU/mL (0.36-3.74); Total Protein 7.1 g/dL (6.4-8.2)
== END 2024-04-21 12:34 | disposition home or self-care (01) ==
LOC: LBO 12:34
PROVIDERS: PCP Nurse Practitioner; Visit Provider Internal Medicine
DX: C79.10 Secondary malignant neoplasm of unspecified urinary organs (principal)
CPT/HCPCS: 36415; 80053; 84439; 84443; 85025

== ENCOUNTER 2024-05-05 09:09 | Outpatient (CLI) | payer BC, SELFPAY ==
[2024-05-05 09:20] LABS: Abs Immature Grans 0.03 10^3/uL (0.0-0.06); Absolute Basophil Count 0.01 10^3/uL (0.0-0.2); Absolute Eosinophil Count 1.53 10^3/uL (0.0-0.7); Absolute Lymphocyte Count 3.67 10^3/uL (1.2-3.4); Absolute Neutrophil Count 4.68 10^3/uL (1.2-6.7); Basophils % 0.1 %; Eosinophils % 14.4 %; HCT 38.7 % (40.0-50.0); HGB 13.7 g/dL (13.5-17.5); Immature Grans % 0.3 %; Lymphocytes % 34.6 %; MCH 31.5 pg (27.0-33.0); MCHC 35.4 % (32.0-36.0); MCV 89 fL (80-95); MPV 10.2 fL (8.0-11.0); Monocytes % 6.6 %; Platelet Count 213 10^3/uL (130-400); RBC 4.35 10^6/uL (4.36-5.78); RDW 13.5 % (11.8-14.1); RDW-SD 43.8 fL; WBC 10.62 10^3/uL (4.4-10.8)
[2024-05-05 09:55] LABS: ALT 56 U/L (16-63); AST 27 U/L (15-37); Albumin 3.8 g/dL (3.4-5.0); Alkaline Phosphatase 71 U/L (46-116); Anion Gap 8.7 mmol/L (3-11); BUN 18 mg/dL (7-18); Bilirubin, Total 0.66 mg/dL (0.2-1.0); CO2 26.3 mmol/L (21.0-32.0); CREATININE 0.8 mg/dL (0.70-1.30); Calcium 9.3 mg/dL (8.5-10.1); Chloride 106 mmol/L (98-107); Estimated GFR 100.69 (mL/min/1.73m2); FREE T4 0.82 ng/dL (0.76-1.46); Glucose 134 mg/dL (74-106); Potassium 3.6 mmol/L (3.5-5.1); Sodium 141 mmol/L (136-145); TSH 1.53 uIU/mL (0.36-3.74); Total Protein 6.9 g/dL (6.4-8.2)
== END 2024-05-05 09:10 | disposition home or self-care (01) ==
LOC: LBO 09:09
PROVIDERS: PCP Nurse Practitioner; Visit Provider Internal Medicine
DX: C79.10 Secondary malignant neoplasm of unspecified urinary organs (principal)
CPT/HCPCS: 36415; 80053; 84439; 84443; 85025

== ENCOUNTER 2024-05-12 02:44 | Outpatient (CLI) | payer BC, SELFPAY ==
[2024-05-12 13:15] LABS: Abs Immature Grans 0.03 10^3/uL (0.0-0.06); Absolute Eosinophil Count 1.55 10^3/uL (0.0-0.7); Absolute Lymphocyte Count 3.71 10^3/uL (1.2-3.4); Absolute Neutrophil Count 3.25 10^3/uL (1.2-6.7); Eosinophils % 16.2 %; HCT 40.6 % (40.0-50.0); HGB 14.2 g/dL (13.5-17.5); Immature Grans % 0.3 %; Lymphocytes % 38.9 %; MCH 31.7 pg (27.0-33.0); MCV 91 fL (80-95); Monocytes % 10.5 %; Neutrophils % 34.1 %; Platelet Count 230 10^3/uL (130-400); RBC 4.48 10^6/uL (4.36-5.78); RDW 13.6 % (11.8-14.1); RDW-SD 44.9 fL; WBC 9.54 10^3/uL (4.4-10.8)
[2024-05-12 13:38] LABS: ALT 38 U/L (16-63); AST 23 U/L (15-37); Albumin 3.8 g/dL (3.4-5.0); Alkaline Phosphatase 70 U/L (46-116); Anion Gap 6.9 mmol/L (3-11); BUN 17 mg/dL (7-18); Bilirubin, Total 0.55 mg/dL (0.2-1.0); CO2 27.1 mmol/L (21.0-32.0); CREATININE 0.7 mg/dL (0.70-1.30); Calcium 9.1 mg/dL (8.5-10.1); Chloride 104 mmol/L (98-107); Estimated GFR 104.83 (mL/min/1.73m2); Glucose 112 mg/dL (74-106); Potassium 4.2 mmol/L (3.5-5.1); Sodium 138 mmol/L (136-145); TSH 1.41 uIU/mL (0.36-3.74); Total Protein 7.1 g/dL (6.4-8.2)
[2024-05-12 17:01] LABS: FREE T4 0.88 ng/dL (0.76-1.46)
== END 2024-05-12 02:45 | disposition home or self-care (01) ==
PROVIDERS: PCP Nurse Practitioner; Visit Provider Internal Medicine
DX: C79.10 Secondary malignant neoplasm of unspecified urinary organs (principal)
CPT/HCPCS: 36415; 80053; 84439; 84443; 85025

== ENCOUNTER 2024-05-26 03:07 | Outpatient (CLI) | payer BC, SELFPAY ==
[2024-05-26 10:51] LABS: Abs Immature Grans 0.03 10^3/uL (0.0-0.06); Absolute Basophil Count 0.01 10^3/uL (0.0-0.2); Absolute Eosinophil Count 1.16 10^3/uL (0.0-0.7); Absolute Lymphocyte Count 3.69 10^3/uL (1.2-3.4); Absolute Monocyte Count 0.77 10^3/uL (0.1-0.8); Basophils % 0.1 %; Eosinophils % 13.6 %; HGB 13.9 g/dL (13.5-17.5); Immature Grans % 0.4 %; Lymphocytes % 43.1 %; MCH 31.5 pg (27.0-33.0); MCHC 34.8 % (32.0-36.0); MCV 91 fL (80-95); MPV 10.5 fL (8.0-11.0); Neutrophils % 33.8 %; Platelet Count 217 10^3/uL (130-400); RBC 4.41 10^6/uL (4.36-5.78); RDW 13.3 % (11.8-14.1); RDW-SD 44.2 fL; WBC 8.56 10^3/uL (4.4-10.8)
[2024-05-26 11:20] LABS: ALT 38 U/L (16-63); AST 20 U/L (15-37); Albumin 3.8 g/dL (3.4-5.0); Alkaline Phosphatase 72 U/L (46-116); BUN 22 mg/dL (7-18); Bilirubin, Total 0.4 mg/dL (0.2-1.0); CREATININE 0.9 mg/dL (0.70-1.30); Calcium 9.2 mg/dL (8.5-10.1); Chloride 106 mmol/L (98-107); Estimated GFR 97.17 (mL/min/1.73m2); Glucose 116 mg/dL (74-106); Sodium 139 mmol/L (136-145); TSH 1.03 uIU/mL (0.36-3.74); Total Protein 7.1 g/dL (6.4-8.2)
[2024-05-26 18:38] LABS: T4, Free 0.9 ng/dL (0.8-2.2)
== END 2024-05-26 03:08 | disposition home or self-care (01) ==
PROVIDERS: PCP Nurse Practitioner; Visit Provider Internal Medicine
DX: C79.10 Secondary malignant neoplasm of unspecified urinary organs (principal)
CPT/HCPCS: 36415; 80053; 84439; 84443; 85025

== ENCOUNTER 2024-06-02 01:42 | Outpatient (CLI) | payer BC, SELFPAY ==
[2024-06-02 12:25] LABS: Abs Immature Grans 0.03 10^3/uL (0.0-0.06); Absolute Basophil Count 0.01 10^3/uL (0.0-0.2); Absolute Eosinophil Count 1.19 10^3/uL (0.0-0.7); Absolute Monocyte Count 0.82 10^3/uL (0.1-0.8); Absolute Neutrophil Count 2.59 10^3/uL (1.2-6.7); Basophils % 0.1 %; Eosinophils % 14.1 %; HGB 13.6 g/dL (13.5-17.5); Immature Grans % 0.4 %; MCH 31.5 pg (27.0-33.0); MCHC 34.9 % (32.0-36.0); MCV 90 fL (80-95); MPV 10.3 fL (8.0-11.0); Monocytes % 9.7 %; Neutrophils % 30.7 %; Platelet Count 212 10^3/uL (130-400); RBC 4.32 10^6/uL (4.36-5.78); RDW 13.3 % (11.8-14.1); RDW-SD 43.8 fL; WBC 8.44 10^3/uL (4.4-10.8)
[2024-06-02 12:53] LABS: ALT 44 U/L (16-63); AST 21 U/L (15-37); Albumin 3.8 g/dL (3.4-5.0); Alkaline Phosphatase 68 U/L (46-116); Anion Gap 8.8 mmol/L (3-11); BUN 21 mg/dL (7-18); Bilirubin, Total 0.6 mg/dL (0.2-1.0); CO2 27.2 mmol/L (21.0-32.0); CREATININE 0.7 mg/dL (0.70-1.30); Calcium 9.2 mg/dL (8.5-10.1); Chloride 105 mmol/L (98-107); Estimated GFR 104.83 (mL/min/1.73m2); Glucose 90 mg/dL (74-106); Potassium 4.1 mmol/L (3.5-5.1); Sodium 141 mmol/L (136-145); TSH 1.03 uIU/mL (0.36-3.74); Total Protein 6.9 g/dL (6.4-8.2)
[2024-06-02 21:49] LABS: T4, Free 0.9 ng/dL (0.8-2.2)
== END 2024-06-02 01:43 | disposition home or self-care (01) ==
LOC: LBO 01:42
PROVIDERS: PCP Nurse Practitioner; Visit Provider Internal Medicine
DX: C79.10 Secondary malignant neoplasm of unspecified urinary organs (principal)
CPT/HCPCS: 36415; 80053; 84439; 84443; 85025

== ENCOUNTER 2024-06-16 15:51 | Outpatient (CLI) | payer BC, SELFPAY ==
[2024-06-16 08:25] LABS: Abs Immature Grans 0.05 10^3/uL (0.0-0.06); Absolute Basophil Count 0.01 10^3/uL (0.0-0.2); Absolute Eosinophil Count 1.01 10^3/uL (0.0-0.7); Absolute Lymphocyte Count 3.76 10^3/uL (1.2-3.4); Absolute Monocyte Count 0.94 10^3/uL (0.1-0.8); Absolute Neutrophil Count 3.91 10^3/uL (1.2-6.7); Basophils % 0.1 %; Eosinophils % 10.4 %; HGB 13.5 g/dL (13.5-17.5); Immature Grans % 0.5 %; Lymphocytes % 38.8 %; MCH 31.5 pg (27.0-33.0); MCHC 34.6 % (32.0-36.0); MCV 91 fL (80-95); MPV 10.4 fL (8.0-11.0); Monocytes % 9.7 %; Neutrophils % 40.5 %; Platelet Count 201 10^3/uL (130-400); RBC 4.29 10^6/uL (4.36-5.78); RDW 13.5 % (11.8-14.1); RDW-SD 44.9 fL; WBC 9.68 10^3/uL (4.4-10.8)
[2024-06-16 08:46] LABS: ALT 38 U/L (16-63); AST 19 U/L (15-37); Albumin 3.8 g/dL (3.4-5.0); Alkaline Phosphatase 72 U/L (46-116); Anion Gap 10.3 mmol/L (3-11); BUN 21 mg/dL (7-18); Bilirubin, Total 0.5 mg/dL (0.2-1.0); CO2 27.7 mmol/L (21.0-32.0); CREATININE 0.8 mg/dL (0.70-1.30); Calcium 9.6 mg/dL (8.5-10.1); Chloride 102 mmol/L (98-107); Estimated GFR 100.69 (mL/min/1.73m2); FREE T4 0.95 ng/dL (0.76-1.46); Glucose 117 mg/dL (74-106); Sodium 140 mmol/L (136-145); TSH 1.66 uIU/mL (0.36-3.74)
== END 2024-06-16 15:52 | disposition home or self-care (01) ==
LOC: LBO 15:51
PROVIDERS: PCP Nurse Practitioner; Visit Provider Internal Medicine
DX: C79.10 Secondary malignant neoplasm of unspecified urinary organs (principal)
CPT/HCPCS: 36415; 80053; 84439; 84443; 85025

== ENCOUNTER 2024-06-23 08:00 | Outpatient (CLI) | payer BC, SELFPAY ==
[2024-06-23 08:11] LABS: Abs Immature Grans 0.04 10^3/uL (0.0-0.06); Absolute Basophil Count 0.01 10^3/uL (0.0-0.2); Absolute Eosinophil Count 1.12 10^3/uL (0.0-0.7); Absolute Neutrophil Count 2.64 10^3/uL (1.2-6.7); Basophils % 0.1 %; Eosinophils % 13.8 %; HCT 39.6 % (40.0-50.0); HGB 13.7 g/dL (13.5-17.5); Immature Grans % 0.5 %; Lymphocytes % 44.4 %; MCH 31.8 pg (27.0-33.0); MCHC 34.6 % (32.0-36.0); MCV 92 fL (80-95); MPV 10.1 fL (8.0-11.0); Monocytes % 8.6 %; Neutrophils % 32.6 %; Platelet Count 217 10^3/uL (130-400); RBC 4.31 10^6/uL (4.36-5.78); RDW 13.3 % (11.8-14.1); RDW-SD 45.4 fL; WBC 8.11 10^3/uL (4.4-10.8)
[2024-06-23 08:41] LABS: ALT 41 U/L (16-63); AST 19 U/L (15-37); Albumin 3.6 g/dL (3.4-5.0); Alkaline Phosphatase 72 U/L (46-116); Anion Gap 10.9 mmol/L (3-11); BUN 14 mg/dL (7-18); Bilirubin, Total 0.5 mg/dL (0.2-1.0); CO2 25.1 mmol/L (21.0-32.0); CREATININE 0.8 mg/dL (0.70-1.30); Calcium 9.4 mg/dL (8.5-10.1); Chloride 104 mmol/L (98-107); Estimated GFR 100.69 (mL/min/1.73m2); FREE T4 0.82 ng/dL (0.76-1.46); Glucose 129 mg/dL (74-106); Potassium 3.7 mmol/L (3.5-5.1); Sodium 140 mmol/L (136-145); TSH 1.23 uIU/mL (0.36-3.74); Total Protein 6.8 g/dL (6.4-8.2)
== END 2024-06-23 08:01 | disposition home or self-care (01) ==
LOC: LBO 08:00
PROVIDERS: PCP Nurse Practitioner; Visit Provider Internal Medicine
DX: C79.10 Secondary malignant neoplasm of unspecified urinary organs (principal)
CPT/HCPCS: 36415; 80053; 84439; 84443; 85025

== ENCOUNTER 2024-07-07 03:50 | Outpatient (CLI) | payer BC, SELFPAY ==
[2024-07-07 08:10] LABS: Abs Immature Grans 0.02 10^3/uL (0.0-0.06); Absolute Basophil Count 0.01 10^3/uL (0.0-0.2); Absolute Eosinophil Count 1.01 10^3/uL (0.0-0.7); Absolute Lymphocyte Count 3.28 10^3/uL (1.2-3.4); Absolute Monocyte Count 0.69 10^3/uL (0.1-0.8); Absolute Neutrophil Count 2.73 10^3/uL (1.2-6.7); Basophils % 0.1 %; HGB 13.4 g/dL (13.5-17.5); Immature Grans % 0.3 %; Lymphocytes % 42.4 %; MCH 31.6 pg (27.0-33.0); MCHC 34.4 % (32.0-36.0); MCV 92 fL (80-95); MPV 10.1 fL (8.0-11.0); Monocytes % 8.9 %; Neutrophils % 35.3 %; Platelet Count 212 10^3/uL (130-400); RBC 4.24 10^6/uL (4.36-5.78); RDW 13.3 % (11.8-14.1); RDW-SD 45.1 fL; WBC 7.74 10^3/uL (4.4-10.8)
[2024-07-07 08:39] LABS: ALT 40 U/L (16-63); AST 19 U/L (15-37); Albumin 3.7 g/dL (3.4-5.0); Alkaline Phosphatase 70 U/L (46-116); Anion Gap 9.5 mmol/L (3-11); BUN 19 mg/dL (7-18); Bilirubin, Total 0.5 mg/dL (0.2-1.0); CO2 24.5 mmol/L (21.0-32.0); CREATININE 0.8 mg/dL (0.70-1.30); Calcium 9.4 mg/dL (8.5-10.1); Chloride 105 mmol/L (98-107); Estimated GFR 100.69 (mL/min/1.73m2); FREE T4 0.91 ng/dL (0.76-1.46); Glucose 131 mg/dL (74-106); Sodium 139 mmol/L (136-145); TSH 1.56 uIU/mL (0.36-3.74); Total Protein 6.8 g/dL (6.4-8.2)
== END 2024-07-07 03:51 | disposition home or self-care (01) ==
LOC: LBO 03:50
PROVIDERS: PCP Nurse Practitioner; Visit Provider Internal Medicine
DX: C79.10 Secondary malignant neoplasm of unspecified urinary organs (principal)
CPT/HCPCS: 36415; 80053; 84439; 84443; 85025

== ENCOUNTER 2024-07-15 01:38 | Outpatient (CLI) | payer BC, SELFPAY ==
[2024-07-15 13:06] LABS: Abs Immature Grans 0.04 10^3/uL (0.0-0.06); Absolute Basophil Count 0.01 10^3/uL (0.0-0.2); Absolute Eosinophil Count 1.27 10^3/uL (0.0-0.7); Absolute Lymphocyte Count 3.68 10^3/uL (1.2-3.4); Absolute Monocyte Count 0.95 10^3/uL (0.1-0.8); Absolute Neutrophil Count 3.21 10^3/uL (1.2-6.7); Basophils % 0.1 %; Eosinophils % 13.9 %; HCT 40.4 % (40.0-50.0); Immature Grans % 0.4 %; Lymphocytes % 40.2 %; MCHC 34.7 % (32.0-36.0); MCV 92 fL (80-95); MPV 10.1 fL (8.0-11.0); Monocytes % 10.4 %; Platelet Count 242 10^3/uL (130-400); RBC 4.38 10^6/uL (4.36-5.78); RDW 13.3 % (11.8-14.1); RDW-SD 45.1 fL; WBC 9.16 10^3/uL (4.4-10.8)
[2024-07-15 13:52] LABS: ALT 44 U/L (16-63); AST 27 U/L (15-37); Albumin 3.9 g/dL (3.4-5.0); Alkaline Phosphatase 71 U/L (46-116); Anion Gap 9.6 mmol/L (3-11); BUN 18 mg/dL (7-18); Bilirubin, Total 0.6 mg/dL (0.2-1.0); CO2 25.4 mmol/L (21.0-32.0); CREATININE 0.8 mg/dL (0.70-1.30); Calcium 9.4 mg/dL (8.5-10.1); Chloride 105 mmol/L (98-107); Estimated GFR 100.69 (mL/min/1.73m2); FREE T4 0.89 ng/dL (0.76-1.46); Glucose 127 mg/dL (74-106); Sodium 140 mmol/L (136-145); TSH 1.53 uIU/mL (0.36-3.74); Total Protein 7.1 g/dL (6.4-8.2)
== END 2024-07-15 01:39 | disposition home or self-care (01) ==
LOC: LBO 01:38
PROVIDERS: PCP Nurse Practitioner; Visit Provider Internal Medicine
DX: C79.10 Secondary malignant neoplasm of unspecified urinary organs (principal)
CPT/HCPCS: 36415; 80053; 84439; 84443; 85025

== ENCOUNTER 2024-07-28 03:57 | Outpatient (CLI) | payer BC, SELFPAY ==
[2024-07-28 09:46] LABS: Abs Immature Grans 0.04 10^3/uL (0.0-0.06); Absolute Basophil Count 0.01 10^3/uL (0.0-0.2); Absolute Eosinophil Count 1.15 10^3/uL (0.0-0.7); Absolute Lymphocyte Count 3.53 10^3/uL (1.2-3.4); Absolute Monocyte Count 0.85 10^3/uL (0.1-0.8); Basophils % 0.1 %; Eosinophils % 11.6 %; HCT 36.7 % (40.0-50.0); Immature Grans % 0.4 %; Lymphocytes % 35.7 %; MCH 32.1 pg (27.0-33.0); MCHC 35.4 % (32.0-36.0); MCV 91 fL (80-95); MPV 10.5 fL (8.0-11.0); Monocytes % 8.6 %; Neutrophils % 43.6 %; Platelet Count 199 10^3/uL (130-400); RBC 4.05 10^6/uL (4.36-5.78); RDW 13.7 % (11.8-14.1); RDW-SD 45.4 fL; WBC 9.88 10^3/uL (4.4-10.8)
[2024-07-28 10:13] LABS: ALT 41 U/L (16-63); AST 29 U/L (15-37); Albumin 3.6 g/dL (3.4-5.0); Alkaline Phosphatase 76 U/L (46-116); Anion Gap 6.4 mmol/L (3-11); BUN 18 mg/dL (7-18); Bilirubin, Total 0.7 mg/dL (0.2-1.0); CO2 26.6 mmol/L (21.0-32.0); CREATININE 0.8 mg/dL (0.70-1.30); Chloride 103 mmol/L (98-107); Estimated GFR 100.69 (mL/min/1.73m2); FREE T4 0.81 ng/dL (0.76-1.46); Glucose 110 mg/dL (74-106); Sodium 136 mmol/L (136-145); TSH 1.31 uIU/mL (0.36-3.74); Total Protein 6.7 g/dL (6.4-8.2)
== END 2024-07-28 03:58 | disposition home or self-care (01) ==
LOC: LBO 03:58
PROVIDERS: PCP Nurse Practitioner; Visit Provider Internal Medicine
DX: C79.10 Secondary malignant neoplasm of unspecified urinary organs (principal)
CPT/HCPCS: 36415; 80053; 84439; 84443; 85025

== ENCOUNTER 2024-08-04 08:45 | Outpatient (CLI) | payer BC, SELFPAY ==
[2024-08-04 08:35] LABS: Abs Immature Grans 0.04 10^3/uL (0.0-0.06); Absolute Basophil Count 0.01 10^3/uL (0.0-0.2); Absolute Eosinophil Count 1.35 10^3/uL (0.0-0.7); Absolute Lymphocyte Count 4.08 10^3/uL (1.2-3.4); Absolute Monocyte Count 1.01 10^3/uL (0.1-0.8); Absolute Neutrophil Count 3.48 10^3/uL (1.2-6.7); Basophils % 0.1 %; Eosinophils % 13.5 %; HCT 39.8 % (40.0-50.0); HGB 13.9 g/dL (13.5-17.5); Immature Grans % 0.4 %; Lymphocytes % 40.9 %; MCH 31.9 pg (27.0-33.0); MCHC 34.9 % (32.0-36.0); MCV 91 fL (80-95); MPV 10.3 fL (8.0-11.0); Monocytes % 10.1 %; Platelet Count 209 10^3/uL (130-400); RBC 4.36 10^6/uL (4.36-5.78); RDW 13.6 % (11.8-14.1); RDW-SD 45.5 fL; WBC 9.97 10^3/uL (4.4-10.8)
[2024-08-04 09:03] LABS: ALT 42 U/L (16-63); AST 27 U/L (15-37); Albumin 3.9 g/dL (3.4-5.0); Alkaline Phosphatase 77 U/L (46-116); Anion Gap 7.5 mmol/L (3-11); BUN 18 mg/dL (7-18); Bilirubin, Total 0.8 mg/dL (0.2-1.0); CO2 28.5 mmol/L (21.0-32.0); CREATININE 0.8 mg/dL (0.70-1.30); Calcium 9.4 mg/dL (8.5-10.1); Chloride 102 mmol/L (98-107); Estimated GFR 100.69 (mL/min/1.73m2); FREE T4 0.84 ng/dL (0.76-1.46); Glucose 117 mg/dL (74-106); Potassium 4.1 mmol/L (3.5-5.1); Sodium 138 mmol/L (136-145); TSH 1.46 uIU/mL (0.36-3.74); Total Protein 7.1 g/dL (6.4-8.2)
== END 2024-08-04 08:46 | disposition home or self-care (01) ==
LOC: LBO 08:45
PROVIDERS: PCP Nurse Practitioner; Visit Provider Internal Medicine
DX: C79.10 Secondary malignant neoplasm of unspecified urinary organs (principal)
CPT/HCPCS: 36415; 80053; 84439; 84443; 85025

== ENCOUNTER 2024-08-18 09:06 | Outpatient (CLI) | payer BC, SELFPAY ==
[2024-08-18 08:05] LABS: Abs Immature Grans 0.05 10^3/uL (0.0-0.06); Absolute Basophil Count 0.01 10^3/uL (0.0-0.2); Absolute Eosinophil Count 1.33 10^3/uL (0.0-0.7); Absolute Lymphocyte Count 4.79 10^3/uL (1.2-3.4); Absolute Neutrophil Count 4.93 10^3/uL (1.2-6.7); Basophils % 0.1 %; Eosinophils % 10.9 %; HCT 37.8 % (40.0-50.0); HGB 13.1 g/dL (13.5-17.5); Immature Grans % 0.4 %; Lymphocytes % 39.2 %; MCH 31.7 pg (27.0-33.0); MCHC 34.7 % (32.0-36.0); MCV 92 fL (80-95); Neutrophils % 40.4 %; Platelet Count 237 10^3/uL (130-400); RBC 4.13 10^6/uL (4.36-5.78); RDW 13.8 % (11.8-14.1); WBC 12.21 10^3/uL (4.4-10.8)
[2024-08-18 08:41] LABS: ALT 37 U/L (16-63); AST 29 U/L (15-37); Albumin 3.9 g/dL (3.4-5.0); Alkaline Phosphatase 72 U/L (46-116); Anion Gap 9.9 mmol/L (3-11); BUN 24 mg/dL (7-18); Bilirubin, Total 0.5 mg/dL (0.2-1.0); CO2 26.1 mmol/L (21.0-32.0); CREATININE 0.7 mg/dL (0.70-1.30); Calcium 9.3 mg/dL (8.5-10.1); Chloride 103 mmol/L (98-107); Estimated GFR 104.83 (mL/min/1.73m2); FREE T4 0.94 ng/dL (0.76-1.46); Glucose 113 mg/dL (74-106); Potassium 4.1 mmol/L (3.5-5.1); Sodium 139 mmol/L (136-145); Total Protein 7.1 g/dL (6.4-8.2)
== END 2024-08-18 09:07 | disposition home or self-care (01) ==
LOC: LBO 09:06
PROVIDERS: PCP Nurse Practitioner; Visit Provider Internal Medicine
DX: C79.10 Secondary malignant neoplasm of unspecified urinary organs (principal)
CPT/HCPCS: 36415; 80053; 84439; 84443; 85025

== ENCOUNTER 2024-08-25 02:27 | Outpatient (CLI) | payer BC, SELFPAY ==
[2024-08-25 10:02] LABS: Abs Immature Grans 0.03 10^3/uL (0.0-0.06); Absolute Basophil Count 0.01 10^3/uL (0.0-0.2); Absolute Eosinophil Count 0.93 10^3/uL (0.0-0.7); Absolute Lymphocyte Count 3.46 10^3/uL (1.2-3.4); Absolute Monocyte Count 0.77 10^3/uL (0.1-0.8); Absolute Neutrophil Count 3.54 10^3/uL (1.2-6.7); Basophils % 0.1 %; Eosinophils % 10.6 %; HCT 38.9 % (40.0-50.0); HGB 13.4 g/dL (13.5-17.5); Immature Grans % 0.3 %; Lymphocytes % 39.6 %; MCH 31.5 pg (27.0-33.0); MCHC 34.4 % (32.0-36.0); MCV 92 fL (80-95); Monocytes % 8.8 %; Neutrophils % 40.6 %; Platelet Count 205 10^3/uL (130-400); RBC 4.25 10^6/uL (4.36-5.78); RDW 13.8 % (11.8-14.1); RDW-SD 46.2 fL; WBC 8.74 10^3/uL (4.4-10.8)
[2024-08-25 10:26] LABS: ALT 43 U/L (16-63); AST 25 U/L (15-37); Albumin 3.9 g/dL (3.4-5.0); Alkaline Phosphatase 81 U/L (46-116); Anion Gap 10.4 mmol/L (3-11); BUN 18 mg/dL (7-18); Bilirubin, Total 0.7 mg/dL (0.2-1.0); CO2 25.6 mmol/L (21.0-32.0); CREATININE 0.7 mg/dL (0.70-1.30); Calcium 9.2 mg/dL (8.5-10.1); Chloride 100 mmol/L (98-107); Estimated GFR 104.83 (mL/min/1.73m2); FREE T4 0.88 ng/dL (0.76-1.46); Glucose 148 mg/dL (74-106); Potassium 3.8 mmol/L (3.5-5.1); Sodium 136 mmol/L (136-145); Total Protein 7.2 g/dL (6.4-8.2)
== END 2024-08-25 02:28 | disposition home or self-care (01) ==
LOC: LBO 02:27
PROVIDERS: PCP Nurse Practitioner; Visit Provider Internal Medicine
DX: C79.10 Secondary malignant neoplasm of unspecified urinary organs (principal)
CPT/HCPCS: 36415; 80053; 84439; 84443; 85025

== ENCOUNTER 2024-09-08 03:03 | Outpatient (CLI) | payer BC, SELFPAY ==
[2024-09-08 08:13] LABS: Abs Immature Grans 0.07 10^3/uL (0.0-0.06); Absolute Basophil Count 0.01 10^3/uL (0.0-0.2); Absolute Eosinophil Count 1.02 10^3/uL (0.0-0.7); Absolute Lymphocyte Count 4.45 10^3/uL (1.2-3.4); Absolute Monocyte Count 0.94 10^3/uL (0.1-0.8); Absolute Neutrophil Count 3.86 10^3/uL (1.2-6.7); Basophils % 0.1 %; Eosinophils % 9.9 %; HCT 38.4 % (40.0-50.0); HGB 13.3 g/dL (13.5-17.5); Immature Grans % 0.7 %; MCH 31.8 pg (27.0-33.0); MCHC 34.6 % (32.0-36.0); MCV 92 fL (80-95); Monocytes % 9.1 %; Neutrophils % 37.2 %; Platelet Count 226 10^3/uL (130-400); RBC 4.18 10^6/uL (4.36-5.78); RDW 13.8 % (11.8-14.1); RDW-SD 46.9 fL; WBC 10.35 10^3/uL (4.4-10.8)
[2024-09-08 08:41] LABS: ALT 34 U/L (16-63); AST 20 U/L (15-37); Albumin 3.9 g/dL (3.4-5.0); Alkaline Phosphatase 69 U/L (46-116); Anion Gap 11.1 mmol/L (3-11); BUN 22 mg/dL (7-18); Bilirubin, Total 0.4 mg/dL (0.2-1.0); CO2 25.9 mmol/L (21.0-32.0); CREATININE 0.7 mg/dL (0.70-1.30); Calcium 9.3 mg/dL (8.5-10.1); Chloride 103 mmol/L (98-107); Estimated GFR 104.83 (mL/min/1.73m2); FREE T4 0.82 ng/dL (0.76-1.46); Glucose 125 mg/dL (74-106); Potassium 3.9 mmol/L (3.5-5.1); Sodium 140 mmol/L (136-145); TSH 1.76 uIU/mL (0.36-3.74); Total Protein 7.1 g/dL (6.4-8.2)
== END 2024-09-08 03:04 | disposition home or self-care (01) ==
PROVIDERS: PCP Nurse Practitioner; Visit Provider Internal Medicine
DX: C79.10 Secondary malignant neoplasm of unspecified urinary organs (principal)
CPT/HCPCS: 36415; 80053; 84439; 84443; 85025

== ENCOUNTER 2024-09-15 04:13 | Outpatient (CLI) | payer BC, SELFPAY ==
[2024-09-15 09:12] LABS: Abs Immature Grans 0.03 10^3/uL (0.0-0.06); HCT 39.9 % (40.0-50.0); HGB 13.9 g/dL (13.5-17.5); Immature Grans % 0.3 %; MCH 31.6 pg (27.0-33.0); MCHC 34.8 % (32.0-36.0); MCV 91 fL (80-95); MPV 10.2 fL (8.0-11.0); Platelet Count 208 10^3/uL (130-400); RBC 4.40 10^6/uL (4.36-5.78); RDW 13.3 % (11.8-14.1); RDW-SD 44.7 fL; WBC 9.61 10^3/uL (4.4-10.8)
[2024-09-15 09:46] LABS: ALT 48 U/L (16-63); AST 28 U/L (15-37); Albumin 3.8 g/dL (3.4-5.0); Alkaline Phosphatase 78 U/L (46-116); Anion Gap 11.6 mmol/L (3-11); BUN 21 mg/dL (7-18); Bilirubin, Total 0.7 mg/dL (0.2-1.0); CO2 25.4 mmol/L (21.0-32.0); Calcium 9.1 mg/dL (8.5-10.1); Chloride 102 mmol/L (98-107); Estimated GFR 104.83 (mL/min/1.73m2); Glucose 109 mg/dL (74-106); Potassium 3.8 mmol/L (3.5-5.1); Sodium 139 mmol/L (136-145); TSH 1.56 uIU/mL (0.36-3.74); Total Protein 7.1 g/dL (6.4-8.2)
== END 2024-09-15 04:14 | disposition home or self-care (01) ==
PROVIDERS: PCP Nurse Practitioner; Visit Provider Internal Medicine
DX: C79.10 Secondary malignant neoplasm of unspecified urinary organs (principal)
CPT/HCPCS: 36415; 80053; 84439; 84443; 85025

== ENCOUNTER 2024-09-29 03:42 | Outpatient (CLI) | payer BC, SELFPAY ==
[2024-09-29 09:30] LABS: Abs Immature Grans 0.09 10^3/uL (0.0-0.06); HCT 38.4 % (40.0-50.0); HGB 13.6 g/dL (13.5-17.5); Immature Grans % 1.0 %; MCH 32.5 pg (27.0-33.0); MCHC 35.4 % (32.0-36.0); MCV 92 fL (80-95); MPV 10.1 fL (8.0-11.0); Platelet Count 193 10^3/uL (130-400); RBC 4.19 10^6/uL (4.36-5.78); RDW 13.6 % (11.8-14.1); RDW-SD 45.6 fL; WBC 9.33 10^3/uL (4.4-10.8)
[2024-09-29 10:17] LABS: ALT 34 U/L (16-63); AST 21 U/L (15-37); Albumin 3.9 g/dL (3.4-5.0); Alkaline Phosphatase 76 U/L (46-116); Anion Gap 10.8 mmol/L (3-11); BUN 18 mg/dL (7-18); Bilirubin, Total 0.5 mg/dL (0.2-1.0); CO2 26.2 mmol/L (21.0-32.0); Calcium 9.2 mg/dL (8.5-10.1); Chloride 102 mmol/L (98-107); Estimated GFR 109.83 (mL/min/1.73m2); Glucose 114 mg/dL (74-106); Potassium 3.8 mmol/L (3.5-5.1); Sodium 139 mmol/L (136-145); TSH 1.07 uIU/mL (0.36-3.74); Total Protein 7.1 g/dL (6.4-8.2)
== END 2024-09-29 03:43 | disposition home or self-care (01) ==
LOC: LBO 03:43
PROVIDERS: PCP Nurse Practitioner; Visit Provider Internal Medicine
DX: C79.10 Secondary malignant neoplasm of unspecified urinary organs (principal)
CPT/HCPCS: 36415; 80053; 84439; 84443; 85025

== ENCOUNTER 2024-10-06 03:08 | Outpatient (CLI) | payer BC, SELFPAY ==
[2024-10-06 08:06] LABS: Abs Immature Grans 0.05 10^3/uL (0.0-0.06); HCT 37.4 % (40.0-50.0); HGB 12.9 g/dL (13.5-17.5); Immature Grans % 0.4 %; MCH 31.8 pg (27.0-33.0); MCHC 34.5 % (32.0-36.0); MCV 92 fL (80-95); MPV 10.2 fL (8.0-11.0); Platelet Count 204 10^3/uL (130-400); RBC 4.06 10^6/uL (4.36-5.78); RDW 13.6 % (11.8-14.1); RDW-SD 46.3 fL; WBC 12.24 10^3/uL (4.4-10.8)
[2024-10-06 08:29] LABS: ALT 32 U/L (16-63); AST 22 U/L (15-37); Albumin 3.7 g/dL (3.4-5.0); Alkaline Phosphatase 72 U/L (46-116); Anion Gap 9.6 mmol/L (3-11); BUN 21 mg/dL (7-18); Bilirubin, Total 0.4 mg/dL (0.2-1.0); CO2 24.4 mmol/L (21.0-32.0); Calcium 9.2 mg/dL (8.5-10.1); Chloride 104 mmol/L (98-107); Estimated GFR 104.83 (mL/min/1.73m2); Glucose 100 mg/dL (74-106); Potassium 3.8 mmol/L (3.5-5.1); Sodium 138 mmol/L (136-145); TSH 1.41 uIU/mL (0.36-3.74); Total Protein 6.8 g/dL (6.4-8.2)
== END 2024-10-06 03:09 | disposition home or self-care (01) ==
LOC: LBO 03:08
PROVIDERS: PCP Nurse Practitioner; Visit Provider Internal Medicine
DX: C79.10 Secondary malignant neoplasm of unspecified urinary organs (principal)
CPT/HCPCS: 36415; 80053; 84439; 84443; 85025

== ENCOUNTER 2024-10-20 03:39 | Outpatient (CLI) | payer BC, SELFPAY ==
[2024-10-20 08:07] LABS: Abs Immature Grans 0.05 10^3/uL (0.0-0.06); HCT 37.3 % (40.0-50.0); HGB 12.7 g/dL (13.5-17.5); Immature Grans % 0.6 %; MCH 31.1 pg (27.0-33.0); MCHC 34.0 % (32.0-36.0); MCV 91 fL (80-95); MPV 9.7 fL (8.0-11.0); Platelet Count 162 10^3/uL (130-400); RBC 4.08 10^6/uL (4.36-5.78); RDW 13.6 % (11.8-14.1); RDW-SD 45.8 fL; WBC 8.75 10^3/uL (4.4-10.8)
[2024-10-20 08:35] LABS: ALT 29 U/L (16-63); AST 21 U/L (15-37); Albumin 3.7 g/dL (3.4-5.0); Alkaline Phosphatase 74 U/L (46-116); Anion Gap 5.7 mmol/L (3-11); BUN 19 mg/dL (7-18); Bilirubin, Total 0.6 mg/dL (0.2-1.0); CO2 27.3 mmol/L (21.0-32.0); Calcium 9.1 mg/dL (8.5-10.1); Chloride 103 mmol/L (98-107); Estimated GFR 104.83 (mL/min/1.73m2); Glucose 113 mg/dL (74-106); Potassium 3.9 mmol/L (3.5-5.1); Sodium 136 mmol/L (136-145); TSH 1.41 uIU/mL (0.36-3.74); Total Protein 6.8 g/dL (6.4-8.2)
== END 2024-10-20 03:40 | disposition home or self-care (01) ==
LOC: LBO 03:39
PROVIDERS: PCP Nurse Practitioner; Visit Provider Internal Medicine
DX: C79.10 Secondary malignant neoplasm of unspecified urinary organs (principal)
CPT/HCPCS: 36415; 80053; 84439; 84443; 85025

== ENCOUNTER 2024-10-27 03:29 | Outpatient (CLI) | payer BC, SELFPAY ==
[2024-10-27 08:42] LABS: Abs Immature Grans 0.04 10^3/uL (0.0-0.06); HCT 38.2 % (40.0-50.0); HGB 13.3 g/dL (13.5-17.5); Immature Grans % 0.4 %; MCH 31.9 pg (27.0-33.0); MCHC 34.8 % (32.0-36.0); MCV 92 fL (80-95); MPV 9.6 fL (8.0-11.0); Platelet Count 159 10^3/uL (130-400); RBC 4.17 10^6/uL (4.36-5.78); RDW 13.4 % (11.8-14.1); RDW-SD 45.3 fL; WBC 9.42 10^3/uL (4.4-10.8)
[2024-10-27 09:39] LABS: ALT 49 U/L (16-63); AST 34 U/L (15-37); Albumin 3.7 g/dL (3.4-5.0); Alkaline Phosphatase 81 U/L (46-116); Anion Gap 6.8 mmol/L (3-11); BUN 15 mg/dL (7-18); Bilirubin, Total 0.8 mg/dL (0.2-1.0); CO2 28.2 mmol/L (21.0-32.0); Calcium 9.0 mg/dL (8.5-10.1); Chloride 102 mmol/L (98-107); Estimated GFR 104.83 (mL/min/1.73m2); Glucose 116 mg/dL (74-106); Potassium 3.7 mmol/L (3.5-5.1); Sodium 137 mmol/L (136-145); TSH 1.41 uIU/mL (0.36-3.74); Total Protein 6.8 g/dL (6.4-8.2)
== END 2024-10-27 03:30 | disposition home or self-care (01) ==
LOC: LBO 03:29
PROVIDERS: PCP Nurse Practitioner; Visit Provider Internal Medicine
DX: C79.10 Secondary malignant neoplasm of unspecified urinary organs (principal)
CPT/HCPCS: 36415; 80053; 84439; 84443; 85025

== ENCOUNTER 2024-11-17 15:56 | Outpatient (CLI) | payer BC, SELFPAY ==
[2024-11-17 11:45] LABS: ALT 33 U/L (16-63); AST 24 U/L (15-37); Albumin 4.0 g/dL (3.4-5.0); Alkaline Phosphatase 76 U/L (46-116); Anion Gap 8.1 mmol/L (3-11); BUN 21 mg/dL (7-18); Bilirubin, Total 0.6 mg/dL (0.2-1.0); CO2 26.9 mmol/L (21.0-32.0); Calcium 9.5 mg/dL (8.5-10.1); Chloride 101 mmol/L (98-107); Estimated GFR 104.83 (mL/min/1.73m2); Glucose 118 mg/dL (74-106); Potassium 3.8 mmol/L (3.5-5.1); Sodium 136 mmol/L (136-145); TSH 1.15 uIU/mL (0.36-3.74); Total Protein 7.3 g/dL (6.4-8.2)
== END 2024-11-17 15:57 | disposition home or self-care (01) ==
LOC: LBO 15:56
PROVIDERS: PCP Nurse Practitioner; Visit Provider Internal Medicine
DX: C79.10 Secondary malignant neoplasm of unspecified urinary organs (principal)
CPT/HCPCS: 36415; 80053; 84439; 84443

== ENCOUNTER 2024-11-18 13:01 | Outpatient (CLI) | payer BC, SELFPAY ==
[2024-11-18 12:50] LABS: Abs Immature Grans 0.06 10^3/uL (0.0-0.06); HCT 34.2 % (40.0-50.0); HGB 12.4 g/dL (13.5-17.5); Immature Grans % 0.5 %; MCH 32.8 pg (27.0-33.0); MCHC 36.3 % (32.0-36.0); MCV 91 fL (80-95); MPV 9.4 fL (8.0-11.0); Platelet Count 188 10^3/uL (130-400); RBC 3.78 10^6/uL (4.36-5.78); RDW 13.7 % (11.8-14.1); RDW-SD 44.9 fL; WBC 11.15 10^3/uL (4.4-10.8)
== END 2024-11-18 13:02 | disposition home or self-care (01) ==
LOC: LBO 13:01
PROVIDERS: PCP Nurse Practitioner; Visit Provider Nurse Practitioner
DX: C79.10 Secondary malignant neoplasm of unspecified urinary organs (principal)
CPT/HCPCS: 36415; 85025

== ENCOUNTER 2024-11-24 08:04 | Outpatient (CLI) | payer BC, SELFPAY ==
[2024-11-24 08:15] LABS: Abs Immature Grans 0.06 10^3/uL (0.0-0.06); HCT 37.7 % (40.0-50.0); HGB 12.9 g/dL (13.5-17.5); Immature Grans % 0.6 %; MCH 31.9 pg (27.0-33.0); MCHC 34.2 % (32.0-36.0); MCV 93 fL (80-95); MPV 9.6 fL (8.0-11.0); Platelet Count 179 10^3/uL (130-400); RBC 4.05 10^6/uL (4.36-5.78); RDW 14.0 % (11.8-14.1); RDW-SD 47.8 fL; WBC 10.67 10^3/uL (4.4-10.8)
[2024-11-24 08:32] LABS: ALT 33 U/L (16-63); AST 24 U/L (15-37); Albumin 3.7 g/dL (3.4-5.0); Alkaline Phosphatase 70 U/L (46-116); Anion Gap 11.0 mmol/L (3-11); BUN 18 mg/dL (7-18); Bilirubin, Total 0.6 mg/dL (0.2-1.0); CO2 27.0 mmol/L (21.0-32.0); Calcium 9.3 mg/dL (8.5-10.1); Chloride 102 mmol/L (98-107); Estimated GFR 104.83 (mL/min/1.73m2); Glucose 111 mg/dL (74-106); Potassium 3.9 mmol/L (3.5-5.1); Sodium 140 mmol/L (136-145); TSH 1.45 uIU/mL (0.36-3.74); Total Protein 7.0 g/dL (6.4-8.2)
== END 2024-11-24 08:05 | disposition home or self-care (01) ==
LOC: LBO 08:04
PROVIDERS: PCP Nurse Practitioner; Visit Provider Nurse Practitioner
DX: C79.10 Secondary malignant neoplasm of unspecified urinary organs (principal)
CPT/HCPCS: 36415; 80053; 84439; 84443; 85025

== ENCOUNTER 2024-12-08 00:46 | Outpatient (CLI) | payer BC, SELFPAY ==
[2024-12-08 08:26] LABS: Abs Immature Grans 0.05 10^3/uL (0.0-0.06); HCT 33.6 % (40.0-50.0); HGB 11.7 g/dL (13.5-17.5); Immature Grans % 0.4 %; MCH 32.2 pg (27.0-33.0); MCHC 34.8 % (32.0-36.0); MCV 93 fL (80-95); MPV 9.4 fL (8.0-11.0); Platelet Count 234 10^3/uL (130-400); RBC 3.63 10^6/uL (4.36-5.78); RDW 14.6 % (11.8-14.1); RDW-SD 49.2 fL; WBC 12.77 10^3/uL (4.4-10.8)
[2024-12-08 11:33] LABS: ALT 44 U/L (16-63); AST 35 U/L (15-37); Albumin 3.8 g/dL (3.4-5.0); Alkaline Phosphatase 82 U/L (46-116); Anion Gap 12.5 mmol/L (3-11); BUN 12 mg/dL (7-18); Bilirubin, Total 0.3 mg/dL (0.2-1.0); CO2 24.5 mmol/L (21.0-32.0); Calcium 9.4 mg/dL (8.5-10.1); Chloride 101 mmol/L (98-107); Estimated GFR 104.83 (mL/min/1.73m2); Glucose 111 mg/dL (74-106); Potassium 3.8 mmol/L (3.5-5.1); Sodium 138 mmol/L (136-145); TSH 1.45 uIU/mL (0.36-3.74); Total Protein 7.0 g/dL (6.4-8.2)
== END 2024-12-08 00:47 | disposition home or self-care (01) ==
PROVIDERS: PCP Nurse Practitioner; Visit Provider Nurse Practitioner
DX: C79.10 Secondary malignant neoplasm of unspecified urinary organs (principal)
CPT/HCPCS: 36415; 80053; 84439; 84443; 85025

== ENCOUNTER 2024-12-15 02:37 | Outpatient (CLI) | payer BC, SELFPAY ==
[2024-12-15 08:22] LABS: Abs Immature Grans 0.10 10^3/uL (0.0-0.06); HCT 36.5 % (40.0-50.0); HGB 12.8 g/dL (13.5-17.5); Immature Grans % 0.9 %; MCH 32.8 pg (27.0-33.0); MCHC 35.1 % (32.0-36.0); MCV 94 fL (80-95); MPV 9.6 fL (8.0-11.0); Platelet Count 240 10^3/uL (130-400); RBC 3.90 10^6/uL (4.36-5.78); RDW 14.4 % (11.8-14.1); RDW-SD 49.1 fL; WBC 11.72 10^3/uL (4.4-10.8)
[2024-12-15 08:55] LABS: ALT 42 U/L (16-63); AST 23 U/L (15-37); Albumin 3.7 g/dL (3.4-5.0); Alkaline Phosphatase 74 U/L (46-116); Anion Gap 11.5 mmol/L (3-11); BUN 13 mg/dL (7-18); Bilirubin, Total 0.5 mg/dL (0.2-1.0); CO2 24.5 mmol/L (21.0-32.0); Calcium 8.9 mg/dL (8.5-10.1); Chloride 100 mmol/L (98-107); Estimated GFR 104.83 (mL/min/1.73m2); Glucose 111 mg/dL (74-106); Potassium 4.2 mmol/L (3.5-5.1); Sodium 136 mmol/L (136-145); TSH 1.25 uIU/mL (0.36-3.74); Total Protein 7.0 g/dL (6.4-8.2)
[2024-12-15 22:30] LABS: PSA, Diagnostic 1.1 ng/mL (<=4.5)
== END 2024-12-15 02:38 | disposition home or self-care (01) ==
LOC: LBO 02:37
PROVIDERS: PCP Nurse Practitioner; Visit Provider Internal Medicine
DX: R97.20 Elevated prostate specific antigen [PSA] (principal)
CPT/HCPCS: 36415; 80053; 84153; 84439; 84443; 85025

== ENCOUNTER 2024-12-16 08:50 | Outpatient (CLI) | payer BC, SELFPAY ==
--- NOTE | 2024-12-16 08:45 | DI.CT_ITS ---
Exam(s) CT ABDOMEN PELVIS W EXAM: CT ABDOMEN PELVIS W CLINICAL HISTORY: K62.89,C79.10 New rectal pain, prostate firm. TECHNIQUE: Imaging Protocol: Axial computed tomography images with coronal and sagittal reformatted images were created and reviewed CONTRAST MATERIAL: Intravenous: Omnipaque 350 Contrast volume:100 ml Oral: yes COMPARISON: CT CT CHEST W from 06/03/[address] ABDOMEN PELVIS WO/W from 06/03/2023 FINDINGS: ABDOMEN and PELVIS: Lung Bases: No acute findings. Liver: Normal density. Stable tiny hypodensities no suspicious mass. Gallbladder and biliary tract: No radiodense calculus. No wall thickening or pericholecystic fluid. No biliary dilation. Pancreas: Normal density. No abnormal calcifications or inflammatory process. No evidence of mass. Spleen: Normal. Kidneys: Normal size, contour and axis. No radiodense stones. No obstructive uropathy. Stable renal cysts. No suspicious masses seen. Adrenal glands: No masses seen. Vasculature: Stable mild dilatation of the distal abdominal aorta. Soft tissues: Large lipoma again noted in the right gluteal region. Bladder: There is marked wall thickening of the right side of the bladder extending along the entire right wall. The thickness is now nearly 3 cm. The mass extends cephalad 5.7 cm and measures roughly 7.6 cm in the AP dimension. The borders are ill-defined. Bowel: No obstruction. No bowel wall thickening. Appendix normal. Diverticulosis of the descending and sigmoid colon. Peritoneal cavity: There is now abnormal soft tissue density material seen posterior to the level of the bladder along the posterior posterior right side of the lower pelvic sidewall. This measures roughly 3.8 by 1.2 by 4.4 cm. No ascites. No focal abscess collection. No mesenteric inflammatory response. No free air. Bones: Unremarkable for age. Reproductive organs: Unremarkable. Lymph nodes: No pathologically enlarged lymph nodes. IMPRESSION:: Significant interval increase in size of mass at the right side of the the bladder. There is now abnormal masslike density in the soft tissues posterior to the bladder. No adenopathy is identified. Evidence of hydronephrosis. RADIATION DOSE DELIVERED: 729.76mGy.cm Total DLP DATA REPOSITORY: All CT scans at this facility are submitted to the National Radiology Data Registry (NRDR) Dose Index Registry (DIR) with the [employer] (ACR). RADIATION OPTIMIZATION: All CT scans at this facility use at least one of these dose optimization techniques: automated exposure control; mA and/or kV adjustment per patient size (includes targeted exams where dose is matched to clinical indication); or iterative reconstruction.
[2024-12-16] MEDS: Barium Sulfate 2% W/V-Berry Smoothie 450 ML BTL PO (11:03)
[2024-12-16] MEDS: Barium Sulfate 2% W/V-Creamy Vanilla Smoothie 450 ML BTL PO (11:03)
[2024-12-16] MEDS: Normal Saline Flush 10 ML SYR IVP (14:03)
[2024-12-16] MEDS: Normal Saline - Diluent 50 ML VIAL IJ (14:03)
[2024-12-16] MEDS: Omnipaque 350 MG/ML 500 ML BTL-Imaging package IJ (14:04)
== END 2024-12-16 09:10 ==
LOC: DI 08:51
PROVIDERS: PCP Nurse Practitioner
DX: K62.89 Other specified diseases of anus and rectum (principal); C79.11 Secondary malignant neoplasm of bladder
CPT/HCPCS: 74177

== ENCOUNTER 2024-12-29 03:23 | Outpatient (CLI) | payer BC, SELFPAY ==
[2024-12-29 10:01] LABS: Abs Immature Grans 0.07 10^3/uL (0.0-0.06); HCT 33.4 % (40.0-50.0); HGB 11.5 g/dL (13.5-17.5); Immature Grans % 0.7 %; MCH 32.3 pg (27.0-33.0); MCHC 34.4 % (32.0-36.0); MCV 94 fL (80-95); MPV 9.4 fL (8.0-11.0); Platelet Count 206 10^3/uL (130-400); RBC 3.56 10^6/uL (4.36-5.78); RDW 14.4 % (11.8-14.1); RDW-SD 50.1 fL; WBC 9.81 10^3/uL (4.4-10.8)
[2024-12-29 10:21] LABS: Iron 91 ug/dL (65-175); Total Iron Binding Capacity 423 ug/dL (250-450); Transferrin Sat 22 % (20-55)
[2024-12-29 10:38] LABS: ALT 36 U/L (16-63); AST 21 U/L (15-37); Albumin 3.7 g/dL (3.4-5.0); Alkaline Phosphatase 70 U/L (46-116); Anion Gap 9.9 mmol/L (3-11); BUN 18 mg/dL (7-18); Bilirubin, Total 0.6 mg/dL (0.2-1.0); CO2 26.1 mmol/L (21.0-32.0); Calcium 8.8 mg/dL (8.5-10.1); Chloride 103 mmol/L (98-107); Estimated GFR 104.83 (mL/min/1.73m2); Ferritin 74 ng/mL (26-388); Glucose 115 mg/dL (74-106); Potassium 4.2 mmol/L (3.5-5.1); Sodium 139 mmol/L (136-145); TSH 1.09 uIU/mL (0.36-3.74); Total Protein 6.8 g/dL (6.4-8.2)
== END 2024-12-29 03:24 | disposition home or self-care (01) ==
LOC: LBO 03:23
PROVIDERS: PCP Nurse Practitioner; Visit Provider Nurse Practitioner
DX: C79.10 Secondary malignant neoplasm of unspecified urinary organs (principal); R31.9 Hematuria, unspecified; Z79.899 Other long term (current) drug therapy; E87.6 Hypokalemia
CPT/HCPCS: 36415; 80053; 82728; 83540; 83550; 84439; 84443; 85025

== ENCOUNTER 2025-01-05 00:07 | Outpatient (CLI) | payer BC, SELFPAY ==
[2025-01-05 07:54] LABS: Abs Immature Grans 0.06 10^3/uL (0.0-0.06); HCT 35.3 % (40.0-50.0); HGB 12.2 g/dL (13.5-17.5); Immature Grans % 0.5 %; MCH 32.4 pg (27.0-33.0); MCHC 34.6 % (32.0-36.0); MCV 94 fL (80-95); MPV 9.6 fL (8.0-11.0); Platelet Count 220 10^3/uL (130-400); RBC 3.77 10^6/uL (4.36-5.78); RDW 14.2 % (11.8-14.1); RDW-SD 48.1 fL; WBC 10.96 10^3/uL (4.4-10.8)
[2025-01-05 08:25] LABS: ALT 38 U/L (16-63); AST 21 U/L (15-37); Albumin 3.7 g/dL (3.4-5.0); Alkaline Phosphatase 72 U/L (46-116); Anion Gap 9.0 mmol/L (3-11); BUN 18 mg/dL (7-18); Bilirubin, Total 0.3 mg/dL (0.2-1.0); CO2 25.0 mmol/L (21.0-32.0); Calcium 8.8 mg/dL (8.5-10.1); Chloride 103 mmol/L (98-107); Estimated GFR 100.69 (mL/min/1.73m2); Glucose 111 mg/dL (74-106); Potassium 4.1 mmol/L (3.5-5.1); Sodium 137 mmol/L (136-145); TSH 1.72 uIU/mL (0.36-3.74); Total Protein 7.0 g/dL (6.4-8.2)
== END 2025-01-05 00:08 | disposition home or self-care (01) ==
LOC: LBO 00:07
PROVIDERS: Visit Provider Nurse Practitioner
DX: C79.10 Secondary malignant neoplasm of unspecified urinary organs (principal)
CPT/HCPCS: 36415; 80053; 84439; 84443; 85025

== ENCOUNTER 2025-01-19 10:38 | Outpatient (CLI) | payer BC, SELFPAY ==
[2025-01-19 08:53] LABS: Abs Immature Grans 0.05 10^3/uL (0.0-0.06); HCT 36.1 % (40.0-50.0); HGB 12.6 g/dL (13.5-17.5); Immature Grans % 0.5 %; MCH 32.6 pg (27.0-33.0); MCHC 34.9 % (32.0-36.0); MCV 94 fL (80-95); MPV 9.4 fL (8.0-11.0); Platelet Count 229 10^3/uL (130-400); RBC 3.86 10^6/uL (4.36-5.78); RDW 13.8 % (11.8-14.1); RDW-SD 47.2 fL; WBC 10.30 10^3/uL (4.4-10.8)
[2025-01-19 09:17] LABS: ALT 35 U/L (16-63); AST 20 U/L (15-37); Albumin 3.8 g/dL (3.4-5.0); Alkaline Phosphatase 71 U/L (46-116); Anion Gap 11.5 mmol/L (3-11); BUN 9 mg/dL (7-18); Bilirubin, Total 0.3 mg/dL (0.2-1.0); CO2 25.5 mmol/L (21.0-32.0); Calcium 8.9 mg/dL (8.5-10.1); Chloride 104 mmol/L (98-107); Glucose 104 mg/dL (74-106); Potassium 4.1 mmol/L (3.5-5.1); Sodium 141 mmol/L (136-145); TSH 0.57 uIU/mL (0.36-3.74); Total Protein 7.2 g/dL (6.4-8.2)
== END 2025-01-19 10:39 | disposition home or self-care (01) ==
LOC: LBO 10:39
PROVIDERS: Visit Provider Nurse Practitioner
DX: C79.10 Secondary malignant neoplasm of unspecified urinary organs (principal)
CPT/HCPCS: 36415; 80053; 84439; 84443; 85025

== ENCOUNTER 2025-01-25 06:00 | Observation (INO) | payer BC, SELFPAY ==
[2025-01-25] VITALS (44 sets, daily range): BP systolic 120–170; BP diastolic 74–100; PULSE 60–96; RESP 8–18; TEMP 36.2–37.2; O2SAT 91–99; BMI 28.7
[2025-01-25] MEDS: Lactated Ringers 1,000 ML 80 ML IV ×4 (06:33→23:04)
--- NOTE | 2025-01-25 06:57 | W.PM.HP.N ---
Date of service: 01/25/25 Time of Service: 06:57 Assessment and Plan Assessment and plan (1) Metastatic urothelial carcinoma: Status: Acute (2) Gross hematuria: Status: Acute (3) Hydronephrosis, right: Status: Acute Assessment and plan: We will move ahead with cystoscopy and TURBT/fulguration of his known bladder cancer. If we are able to identify his right ureteral orifice, we will attempt to place a ureteral stent to help protect his renal function. The patient understands that today's procedure has no curative intect but is meant to control symptoms only. History of Present Illness History of Present Illness Chief Complaint: Hematuria due to bladder cancer Narrative: Duarte is a 59-year-old gentleman who has a history of urothelial cell carcinoma of the bladder. He was initially diagnosed in 2021. His tumor was high-grade and there was suspicion for involvement of the lamina propria. His initial tumor was just behind the right ureteral orifice. He was treated with transurethral resection along with both an induction series and maintenance doses of intravesical BCG. He was found to have a metastatic lesion in his lung. The mass was biopsy proven to be urothelial cell carcinoma in origin. He was seen and been under the care of the oncology providers at [facility]. He has been having intermittent gross hematuria over the past 3 to 4 months. He may go 2 to 3 weeks without visible blood in the urine. He has passed rather large clots. This is not restricting his ability to void. He has met with radiation oncology and discussed to not pursuing it at this time but coming back to urology for tumor resection and/or cauterization. His recent imaging studies also identified mild right hydronephrosis. The patient has no flank pain. He is interested in stent placement (if possible) to help preserve renal function. Review of Systems Narrative: No fevers or chills Decreased visual acuity. No dysphasia No diabetes or thyroid dysfunction No hemoptysis No chest pain or palpitations GERD. No hepatitis, ulcers, jaundice, diarrhea or constipation No seizures, strokes or peripheral neuropathy Anemia. No bleeding disorders No gout PFSH All Active Problems (Updated 01/25/25 @ 07:01 by Prince Mabry MD) Hydronephrosis, right (Acute) Gross hematuria (Acute) Advanced care planning/counseling discussion (Acute) Palliative care patient (Acute) Cancer associated pain (Acute) Metastatic urothelial carcinoma (Acute ~07/2023) 08/02/23 Dr Snowden, Hem/Onc Secondary malignant neoplasm of right lung (Acute) Cavitary lesion of lung (Acute) Rupture of right proximal biceps tendon (Acute 11/30/22) Elevated PSA (Acute) Blindness of left eye (Chronic 03/02/14) Body mass index (BMI) exceeds 25 (Chronic 05/05/15) Essential hypertension (Chronic 02/02/15) GERD (gastroesophageal reflux disease) (Chronic 03/02/14) Hyperlipidemia (Chronic 03/02/14) Baseline LDL 160-180s IFG (impaired fasting glucose) (Chronic 12/28/16) Tobacco use disorder (Chronic) Dermatitis (Chronic) Axilla, probably 2' deod. 11/2017 [place] D[facility] consult Heavy alcohol use (Acute) Erectile dysfunction (Acute) History of colon polyps (Acute) Anemia (Chronic) Medical History Lesion of liver 10/2022 f/u CT: tiny cysts, no further f/u needed COVID (~02/14/22) Bladder cancer (~2021) Tubular adenoma of colon (06/18/14) 2 polyps Tendonitis of wrist, left (11/05/14) Surgical History History of lung biopsy (07/01/23) [place] R lung H/O endoscopy (05/28/22) Dr Paniagua Hx of cystoscopy Colonoscopy - MAC (02/26/18) Dr Mariscal, no abnormalities, repeat in 10 years. Family History Mother Aortic aneurysm Father No problems noted. Sister No problems noted. Sister No problems noted. Brother No problems noted. Brother No problems noted. Brother No problems noted. Social History Smoking/Tobacco Use Status: Current-Occasional Tobacco Type: cigarettes Smoking packs per day: 1 Smoking cigarettes per day: 20.0 Years smoked: 40 Smoking pack-years: 40.00 Tobacco: How many years used: 40 Quit status: has quit before Smoking risk assessment performed?: Yes Alcohol Intake: current Alcohol Intake frequency: 3 or more drinks per day Alcohol type: beer and hard liquor Drug use: Never Substance use type: does not use Details: Last ETOH 01/24/2025 Adopted: No Caregiver/Support person: No Foster care: No Housing: house Number of Children: 1 number of grandchildren: 0 Communication Needs: None and Corrective Lenses Education Level: vocational Do you need help understanding health information?: Rarely current occupation: [employer] Pets and animals: No Sexually active: Yes Do you think of yourself as: straight/heterosexual Current gender identity: male What is your relationship status?: never How often do you talk on the phone with friends or family?: once per week How often do you get together with friends or relatives?: twice per week How often do you attend spiritism or yarsani services?: decline to answer Do you belong to any clubs or organized social groups?: no Panel score (0-1 are the most socially isolated patients): 1 What type of physical activity do you participate in: regular exercise and other Details: Active with work on [employer] Duration: 30-45 minutes/day Frequency: daily Gricelda/Presybeterian: Mosque Special gricelda needs: No Seatbelt use: always Helmet use: Yes Drive intox or ride w/intox mule driver: No Water heater temp set <120 deg: Yes Working smoke detector in home: No Fire extinguisher in home: Yes Carbon monox detector in home: No Do you feel safe at home: Yes Do you feel safe in your relationship?: Yes Meds Allergies and Home Medications Allergies Allergy/AdvReac Type Severity Reaction Status Date / Time poison pranav extract Allergy Unknown rash Verified 01/25/25 06:14 bee pollen Allergy swelling Verified 01/25/25 06:14 under arms Home Medications Medication Instructions Recorded Confirmed Type glucosamine [id number] 1 ea PO DAILY 05/11/14 01/25/25 History sabra 1,500 mg-400 unit-100 mg tablet (Osteo Bi-Flex (5-Loxin)) multivit with minerals no.21-folic 1 mg PO DAILY 05/11/14 01/25/25 History acid 1 mg tablet,delayed release (Supervite (EC)) aspirin 81 mg tablet,delayed 81 mg PO DAILY 05/27/14 01/22/25 History release mecobalamin (vitamin B12) 1,000 1,000 mcg PO DAILY 11/28/21 01/25/25 History mcg chewable tablet melatonin 10 mg capsule 10 mg PO HS PRN 11/28/21 01/25/25 History acetaminophen 500 mg capsule 500 mg PO PRN PRN 12/13/22 01/22/25 History Panax, Tristanian Ginsg/B12/Royl 1 ea PO DAILY PRN 06/07/23 01/25/25 History [Ginseng Complex Capsule] oxybutynin chloride 5 mg tablet 5 mg PO BID-TID PRN bladder spasms 06/17/23 01/22/25 Rx #20 tabs sildenafil 100 mg tablet See Rx Instructions .Route 08/13/23 01/22/25 Rx .COMPLEX #10 tabs ondansetron HCl 4 mg tablet 4 mg PO Q8H 08/27/23 01/22/25 History prochlorperazine maleate 10 mg 10 mg PO Q6H PRN 08/27/23 01/22/25 History tablet (Compazine) citalopram 20 mg tablet 20 mg PO DAILY #90 tabs 10/14/23 01/25/25 Rx olanzapine 5 mg tablet 5 mg PO QHS 11/25/23 01/25/25 History hydrochlorothiazide 25 mg tablet See Rx Instructions .Route 03/03/24 01/25/25 Rx .COMPLEX #90 tabs lisinopril 10 mg tablet See Rx Instructions .Route 04/06/24 01/25/25 Rx .COMPLEX #90 tabs atorvastatin 40 mg tablet 40 mg PO DAILY #90 tab-caps 07/01/24 01/25/25 Rx omeprazole 20 mg capsule,delayed See Rx Instructions .Route 07/01/24 01/25/25 Rx release .COMPLEX #90 caps sildenafil 25 mg tablet 25 mg PO DAILY PRN sexual activity 08/06/24 01/22/25 Rx #90 tabs tadalafil (pulm. hypertension) 20 20 mg PO DAILY PRN 30 minutes 08/06/24 01/22/25 Rx mg tablet (pulmonary hypertension) before sex #90 tabs potassium chloride 20 mEq 20 meq PO BID 11/19/24 01/25/25 History tablet,extended release (K-Tab) enfortumab vedotin-ejfv 20 mg 20 mg IV QWEEK 01/06/25 01/21/25 History intravenous solution hydromorphone 2 mg tablet 2 mg PO Q6H PRN pain #30 tabs 01/21/25 01/25/25 Rx suzetrigine 50 mg tablet 50 mg PO Q12H #60 tabs 01/21/25 01/22/25 Rx Exam Const General: cooperative Neck Neck: supple Resp Effort & Inspection: normal respiratory effort Auscultation: diminished lung sounds and no rales Cardio Rate: regular rate Rhythm: regular rhythm GI Palpation: soft and no masses Neuro General: patient alert, patient awake and patient oriented x3 Results Last Vital Signs Temp 36.8 C 01/25/25 06:08 Pulse 78 01/25/25 06:08 Resp 16 01/25/25 06:08 BP 124/77 01/25/25 06:08 Pulse Ox 94 01/25/25 06:08 Time Spent Time spent with Patient: <40 minutes Time was spent: other
--- NOTE | 2025-01-25 07:31 | W.ANESPRE ---
General Info Date of Service Date Performed: 01/25/25 Height: 5 ft 9 in Weight: 88.2 kg Body Mass Index (BMI): 28.7 Surgical Procedure: Operation Date: 01/25/25 07:40 Proposed Procedure Side Surgeon p Cystoscopy,Retrograde/Transurethral Resection Bladder Tumor/Cauterization of Bleeders/Possible Stent Placement Right Prince Mabry MD Actual Procedure Side Surgeon p Cystoscopy,Retrograde/Transurethral Resection Bladder Tumor/Cauterization of Bleeders/Possible Stent Placement Right Prince Mabry MD Meds Allergies and Home Medications Allergies Allergy/AdvReac Type Severity Reaction Status Date / Time poison pranav extract Allergy Unknown rash Verified 01/25/25 06:14 bee pollen Allergy swelling Verified 01/25/25 06:14 under arms Home Medication Medication Instructions Recorded glucosamine MDp-D4-Suhgvphzp 1 ea PO DAILY 05/11/14 sabra 1,500 mg-400 unit-100 mg tablet (Osteo Bi-Flex (5-Loxin)) multivit with minerals no.21-folic 1 mg PO DAILY 05/11/14 acid 1 mg tablet,delayed release (Supervite (EC)) aspirin 81 mg tablet,delayed 81 mg PO DAILY 05/27/14 release mecobalamin (vitamin B12) 1,000 1,000 mcg PO DAILY 11/28/21 mcg chewable tablet melatonin 10 mg capsule 10 mg PO HS PRN 11/28/21 acetaminophen 500 mg capsule 500 mg PO PRN PRN 12/13/22 Panax, Guyanese Ginsg/B12/Royl 1 ea PO DAILY PRN 06/07/23 [Ginseng Complex Capsule] oxybutynin chloride 5 mg tablet 5 mg PO BID-TID PRN bladder spasms 06/17/23 #20 tabs sildenafil 100 mg tablet See Rx Instructions .Route 08/13/23 .COMPLEX #10 tabs ondansetron HCl 4 mg tablet 4 mg PO Q8H 08/27/23 prochlorperazine maleate 10 mg 10 mg PO Q6H PRN 08/27/23 tablet (Compazine) citalopram 20 mg tablet 20 mg PO DAILY #90 tabs 10/14/23 olanzapine 5 mg tablet 5 mg PO QHS 11/25/23 hydrochlorothiazide 25 mg tablet See Rx Instructions .Route 03/03/24 .COMPLEX #90 tabs lisinopril 10 mg tablet See Rx Instructions .Route 04/06/24 .COMPLEX #90 tabs atorvastatin 40 mg tablet 40 mg PO DAILY #90 tab-caps 07/01/24 omeprazole 20 mg capsule,delayed See Rx Instructions .Route 07/01/24 release .COMPLEX #90 caps sildenafil 25 mg tablet 25 mg PO DAILY PRN sexual activity 08/06/24 #90 tabs tadalafil (pulm. hypertension) 20 20 mg PO DAILY PRN 30 minutes 08/06/24 mg tablet (pulmonary hypertension) before sex #90 tabs potassium chloride 20 mEq 20 meq PO BID 11/19/24 tablet,extended release (K-Tab) enfortumab vedotin-ejfv 20 mg 20 mg IV QWEEK 01/06/25 intravenous solution hydromorphone 2 mg tablet 2 mg PO Q6H PRN pain #30 tabs 01/21/25 suzetrigine 50 mg tablet 50 mg PO Q12H #60 tabs 01/21/25 Current Visit Medications: Current Medications Generic Name Dose Route Start Last Admin Trade Name Chavezq PRN Reason Stop Dose Admin Ringer's Solution 1,000 mls @ 80 mls/hr 01/25/25 06:00 01/25/25 06:33 IV 01/25/25 23:59 80 mls/hr INFUSION ANNABELLE Administration Cefazolin Sodium/Dextrose 2 gm in 50 mls @ 100 mls/hr 01/25/25 06:00 Ancef Duplex IVPB 01/25/25 23:59 PREOP ANNABELLE IV Miscellaneous Supplies 1 each 01/25/25 06:00 Iv Access IV 01/25/25 23:59 DIRECTED ANNABELLE Sodium Chloride 0 ml 01/25/25 06:00 Normal Saline Flush 10 Ml Syr IV 01/25/25 23:59 PRN PRN Sodium Chloride 0 ml 01/25/25 06:00 Normal Saline 10 Ml Vial IJ 01/25/25 23:59 DIRECTED PRN Sterile Water 0 ml 01/25/25 06:00 Water,Injection,Sterile 10 Ml Vial IJ 01/25/25 23:59 DIRECTED PRN PFSH Active Problems Active Problems: Problem Status Onset Code Hydronephrosis, right Acute N13.30 Gross hematuria Acute R31.0 Advanced care planning/counseling discussion Acute Z71.89 Palliative care patient Acute Z51.5 Cancer associated pain Acute G89.3 Metastatic urothelial carcinoma Acute ~07/2023 C79.10 Secondary malignant neoplasm of right lung Acute C78.01 Cavitary lesion of lung Acute J98.4 Rupture of right proximal biceps tendon Acute 11/30/22 S46.211A Elevated PSA Acute R97.20 Blindness of left eye Chronic 03/02/14 H54.40 Body mass index (BMI) exceeds 25 Chronic 05/05/15 Z78.9 Essential hypertension Chronic 02/02/15 I10 GERD (gastroesophageal reflux disease) Chronic 03/02/14 K21.9 Hyperlipidemia Chronic 03/02/14 E78.5 IFG (impaired fasting glucose) Chronic 12/28/16 R73.01 Tobacco use disorder Chronic F17.200 Dermatitis Chronic L30.9 Heavy alcohol use Acute Z78.9 Erectile dysfunction Acute N52.9 History of colon polyps Acute Z86.010 Anemia Chronic D64.9 Medical History Medical History Lesion of liver 10/2022 f/u CT: tiny cysts, no further f/u needed COVID (~02/14/22) Bladder cancer (~2021) Tubular adenoma of colon (06/18/14) 2 polyps Tendonitis of wrist, left (11/05/14) Surgical History Surgical History History of lung biopsy (07/01/23) [facility] [place] H/O endoscopy (05/28/22) Dr Paniagua Hx of cystoscopy Colonoscopy - MAC (02/26/18) Dr Mariscal, no abnormalities, repeat in 10 years. Tobacco Smoking/Tobacco Use Status: Current-Occasional Tobacco Type: cigarettes Smoking packs per day: 1 Smoking cigarettes per day: 20.0 Years smoked: 40 Smoking pack-years: 40.00 Passive smoking exposure: Yes Alcohol Alcohol Intake: current Alcohol intake frequency: 3 or more drinks per day Alcohol type: beer and hard liquor Substance Use Substance use: Never Substance use type: does not use Details: Last ETOH 01/24/2025 Vital Signs and Lab Results Vital Signs Most Recent Vital Signs in EMR: Most Recent Vital Signs Temp Pulse Resp BP Pulse Ox 36.8 C 78 16 124/77 94 01/25/25 06:08 01/25/25 06:08 01/25/25 06:08 01/25/25 06:08 01/25/25 06:08 Lab Results Complete Blood Count: WBC, (4.4-10.8) 10.30 10^3/uL 01/19/25, 08:45 RBC, (4.36-5.78) 3.86 10^6/uL L 01/19/25, 08:45 Hgb, (13.5-17.5) 12.6 g/dL L 01/19/25, 08:45 Hct, (40.0-50.0) 36.1 % L 01/19/25, 08:45 Plt Count, (130-400) 229 10^3/uL 01/19/25, 08:45 Complete Metabolic Panel: Sodium, (136-145) 141 mmol/L 01/19/25, 08:45 Potassium, (3.5-5.1) 4.1 mmol/L 01/19/25, 08:45 Chloride, (98-107) 104 mmol/L 01/19/25, 08:45 Carbon Dioxide, (21.0-32.0) 25.5 mmol/L 01/19/25, 08:45 BUN, (7-18) 9 mg/dL 01/19/25, 08:45 Creatinine, (0.70-1.30) 0.7 mg/dL 01/19/25, 08:45 Est GFR (CKD-EPI 2020), (mL/min/1.73m2) 104.83 01/19/25, 08:45 Calcium, (8.5-10.1) 8.9 mg/dL 01/19/25, 08:45 Albumin, (3.4-5.0) 3.8 g/dL 01/19/25, 08:45 Glucose, (74-106) 104 mg/dL 01/19/25, 08:45 Liver Function Panel: ALT, (16-63) 35 U/L 01/19/25, 08:45 AST, (15-37) 20 U/L 01/19/25, 08:45 Thyroid Panel: TSH, (0.36-3.74) 0.57 uIU/mL 01/19/25, 08:45 Imaging and Studies Imaging and Studies Study information below may be from another EMR and interpreted by another provider. Please see original notes in EMR for more complete details. EKG Summary: 04/09: Sinus rhythm...normal P axis, V-rate 60- 99 Anesthesia Assessment and Plan Anesthesia History Personal History: No History of Anesthesia Complications Family History: No Family History of Anesthesia Complications Exercise Tolerance Exercise Tolerance: Metabolic Equivalents>4 Pertinent Negatives Pertinent Negatives: No Symptoms of GERD (RX) Cardiac & Pulmonary Exam Cardiac Exam: Normal S1/S2 Heart Sounds Pulmonary Exam: Clear Bilateral Breath Sounds Implantable Cardiac Device Does patient have a Pacemaker or an ICD?: No Airway Exam Known Difficult Airway: No Mallampati Class: 3 Mouth Opening: Normal (> 3cm) Thyromental Distance: Greater than 3 cm Neck Range of Motion: Full ROM Neck Circumference: Normal Teeth Condition: Normal Dentition ASA Classification ASA Score: ASA 3 Emergency Case?: No NPO Status NPO Status: NPO Clears >2 hours, Solids >8 hours Anesthesia Plan Resuscitation Status: Full Code Anesthesia Technique: General Anesthesia Airway Planned: LMA Monitors Used: Standard Monitors and SedLine Preoperative Comments:: Bladder CA with mets. Pulmonary tumor.
[2025-01-25] MEDS: ceFAZolin 2 GM/50 ML BAG IVPB (07:45)
[2025-01-25] MEDS: Lidocaine 2% Jelly 11 ML SYR (08:01)
--- NOTE | 2025-01-25 08:43 | BLADDER_PTH ---
PATIENT: Duarte Agudelo LOC: U#:[id number] AGE/SX: 59/M ROOM: 231 RE01/25/[address]: Prince Mabry MD : [id number] BED: A DIS: 01/26/2025 SPEC #: [id number] RECD: 01/25/25 11:53 STATUS: LUZ MARIA REQ #: [id number] DEMARIO: 01/25/25 08:[address]: Prince Mabry DEPT: Surgical Specimen RECD BY: Namrata Jenkins ENTERED: 01/25/25 11:54 SP TYPE: Bladder OTHR DR: [facility] Tissues: 1 - BLADDER CURRETTINGS Procedures: GROSS AND MICRO LEVEL 5 Comments: [id number]
--- NOTE | 2025-01-25 08:59 | W.PM.OP ---
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 He has been under the care of the oncology department down at the [facility]. He has had progression of his tumor and intermittent gross hematuria with clots. He has elected not to have radiation treatments to help control the bleeding. Instead, he comes in for cystoscopy, transurethral resection/fulguration of his known bladder tumor. He does have a new finding of right sided hydronephrosis. If we are able to visualize the right ureteral orifice, he is also agreeable to placement of a right ureteral stent. Findings: large bladder tumor unable to visualize right ureteral orifice Procedure Description: The patient was given IV antibiotics and brought to the operating room on 01/25/2025. After successful induction of general anesthesia, he was placed in the dorsal lithotomy position. His genitalia was prepped and draped. 2% Xylocaine jelly was instilled into the urethra. A 22 Bulgarian rigid cystoscope was passed through the urethra into the bladder. The urethra and bladder were inspected with the 30 degree lens. The pendulous, bulbar and membranous urethra all appeared normal with no strictures. The prostatic urethra showed some lateral lobe enlargement but no significant median lobe. The bladder neck was entered and the bladder mucosa was inspected. The left side of the bladder appeared relatively normal, but the right side of the posterior wall showed necrotic appearing tumor with a combination of papillary and nodular growth as well. I was unable to visualize the right ureteral orifice. I removed the cystoscope and passed a 24 Bulgarian resectoscope sheath through the urethra into the bladder. I performed transurethral resection using bipolar cautery. I resected the bulk of the bladder tumor but certainly this was not a complete resection. I then switched to the plasma button and cauterized the resection site and tumor bed. At the completion of the procedure, I was still unable to visualize the right ureteral orifice. I did not cauterize over the expected location of the ureteral orifice. All resected tissue was evacuated and sent to pathology for permanent section. I filled the bladder with irrigant and passed a 20 Bulgarian hematuria catheter through the urethra into the bladder. The catheter balloon was inflated with 30 cc of sterile water. The catheter was hooked to gravity drainage. Continuous bladder irrigation with saline was begun. The patient tolerated the procedure well with no complications. Date of Procedure: 01/25/25
[2025-01-25] MEDS: HYDROmorphone 2 MG/ML SYR IVP ×6 (09:08→20:21)
[2025-01-25] MEDS: fentaNYL 100 MCG/2 ML VIAL IVP ×3 (09:35→10:06)
--- NOTE | 2025-01-25 11:17 | W.ANESPOSTOP ---
Postoperative Evaluation Date, Time and Location Date Performed: 01/25/25 Time Performed: 11:17 Patient Location: Med/Surg Vital Signs Most Recent Imported Vital Signs: Most Recent Vital Signs Temp Pulse Resp BP Pulse Ox 36.2 C L 72 16 121/86 94 01/25/25 11:00 01/25/25 11:00 01/25/25 11:00 01/25/25 11:00 01/25/25 11:00 Pain Score Most Recent Pain Score: Most Recent Pain Score Pain Level 6 01/25/25 10:33 Assessment Mental Status: Awake (Alert & Oriented to Patient Baseline) Airway and Respiratory Function: Patent airway with normal (patient baseline) respiratory exam Cardiovascular Function: Hemodynamically Stable Hydration Status: Adequately Hydrated Nausea & Vomiting: No Nausea or Vomiting Pain: Pain is Moderate or Severe (Managed with pain meds) Postoperative Pain Management: Pain being addressed with medication Peripheral Nerve Block: Patient did not receive a nerve block
[2025-01-25] MEDS: HYDROmorphone 2 MG TAB PO ×3 (11:54→23:04)
[2025-01-25] MEDS: Normal Saline Flush 10 ML SYR IV ×3 (14:31→23:03)
[2025-01-25] MEDS: Polyethylene Glycol 3350 17 GM PACKET PO (15:20)
[2025-01-25] MEDS: Oxybutynin 5 MG TAB PO ×2 (15:20→20:08)
[2025-01-25] MEDS: ceFAZolin 1 GM/50 ML BAG IVPB ×2 (15:21→23:03)
[2025-01-25] MEDS: OLANZapine 5 MG TAB PO (20:08)
[2025-01-25] MEDS: Potassium Chloride 20 MEQ TABCR PO (20:08)
[2025-01-25] MEDS: Docusate Sodium 100 MG CAP PO (20:08)
[2025-01-26] MEDS: HYDROmorphone 2 MG TAB PO ×2 (04:22→09:53)
[2025-01-26] MEDS: HYDROmorphone 2 MG/ML SYR IVP (04:35)
[2025-01-26] MEDS: Normal Saline Flush 10 ML SYR ×2 (04:36→04:37)
[2025-01-26] MEDS: Normal Saline Flush 10 ML SYR IV (04:38)
--- NOTE | 2025-01-26 07:48 | W.PM.DS.N ---
Date of service: 01/26/25 Time of Service: 07:48 DS: Diagnosis Discharge Diagnosis (1) Metastatic urothelial carcinoma: Status: Acute (2) Gross hematuria: Status: Acute (3) Hydronephrosis, right: Status: Acute Discharge Plan Disposition Patient Disposition: Home Condition: Stable Discharge Details Reason For Visit: Bladder Cancer Admit Date/Time: 01/25/25 06:00 Admit Provider: Prince Mabry Attending Provider: Prince Mabry Primary Care Provider: [facility] Course Hospital Course: The patient to the operating room on 08/05/2023 he underwent cystoscopy and transurethral resection of large greater than 5 cm) bladder tumor. Following the procedure he was admitted to the medical surgical unit for continuous bladder irrigation. The irrigation was maintained overnight and remained clear with no evidence of clot retention. Review of systems was completed. He is being discharged with his catheter still in place. On Home Meds and New Rx's Prescriptions: No Action oxybutynin chloride 5 mg tablet 5 mg PO BID-TID PRN (Reason: bladder spasms) Qty: 20 0RF suzetrigine 50 mg tablet 50 mg PO Q12H Qty: 60 0RF Rx Instructions: take 2 tab loading dose on empty stomach then 1 tab q12 hrs hydromorphone 2 mg tablet 2 mg PO Q6H MDD 4 tabs PRN (Reason: pain) Qty: 30 0RF Rx Instructions: for cancer related pain mecobalamin (vitamin B12) 1,000 mcg tablet,chewable 1,000 mcg PO DAILY melatonin 10 mg capsule 10 mg PO HS PRN sildenafil 25 mg tablet 25 mg PO DAILY PRN (Reason: sexual activity) Qty: 90 0RF Rx Instructions: administer 30 minutes to 4 hours before activity tadalafil (pulm. hypertension) 20 mg tablet 20 mg PO DAILY PRN (Reason: 30 minutes before sex) Qty: 90 3RF Supervite (EC) 1 MG tablet,delayed release (DR/EC) 1 mg PO DAILY [id number] serr [Osteo Bi-Flex (5-Loxin)] 1 EACH tablet 1 ea PO DAILY aspirin 81 MG tablet,delayed release (DR/EC) 81 mg PO DAILY Panax, Chadian Ginsg/B12/Royl [Ginseng Complex Capsule] 1 EACH capsule 1 ea PO DAILY PRN sildenafil 100 mg tablet See Rx Instructions .ROUTE .COMPLEX Qty: 10 6RF Dose Instruction: TAKE 1/2 TABLET BY MOUTH NEEDED FOR SEXUAL ACTIVITY. TAKE 30MIN TO 4 HOURS BEFORE ACTIVITY Rx Instructions: TAKE 1/2 TABLET BY MOUTH NEEDED FOR SEXUAL ACTIVITY. TAKE 30MIN TO 4 HOURS BEFORE ACTIVITY prochlorperazine maleate [Compazine] 10 mg tablet 10 mg PO Q6H PRN ondansetron HCl 4 mg tablet 4 mg PO Q8H Rx Instructions: May take 1-2 q8h prn nausea olanzapine 5 mg tablet 5 mg PO QHS hydrochlorothiazide 25 mg tablet See Rx Instructions .ROUTE .COMPLEX Qty: 90 3RF Dose Instruction: TAKE ONE TABLET BY MOUTH EVERY DAY Rx Instructions: TAKE ONE TABLET BY MOUTH EVERY DAY lisinopril 10 mg tablet See Rx Instructions .ROUTE .COMPLEX Qty: 90 3RF Dose Instruction: TAKE ONE TABLET BY MOUTH EVERY DAY Rx Instructions: TAKE ONE TABLET BY MOUTH EVERY DAY omeprazole 20 mg capsule,delayed release(DR/EC) See Rx Instructions .ROUTE .COMPLEX Qty: 90 3RF Dose Instruction: TAKE ONE CAPSULE BY MOUTH EVERY DAY AT LEAST 30 MIN BEFORE FIRST MEAL Rx Instructions: TAKE ONE CAPSULE BY MOUTH EVERY DAY AT LEAST 30 MIN BEFORE FIRST MEAL atorvastatin 40 mg tablet 40 mg PO DAILY Qty: 90 3RF potassium chloride [K-Tab] 20 mEq tablet extended release 20 meq PO BID enfortumab vedotin-ejfv 20 mg recon soln 20 mg IV QWEEK Rx Instructions: Unsure dose potassium chloride 20 mEq tablet,ER particles/crystals 20 meq PO DAILY Patient Comments: TAKE ONE TABLET BY MOUTH TWICE A DAY acetaminophen 500 mg Capsule 500 mg PO PRN PRN Patient Comments: yes Discharge Instructions Additional Instructions: Kuo catheter to legbag with the catheter plug to irrigation port Follow-up or Saturday of this week to have his catheter removed Stand Alone Forms: Portal Information Activity:: No lifting over 20 pounds Equipment/Supplies:: Kuo catheter to leg bag Diet:: As Tolerated Discharge Orders Discharge Orders: Discharge Order (Routine); Ordered 01/26/25 Ordered By: Prince Mabry DS: Summary Time Spent with Patient providing and/or coordinating discharge services: Less than 30 minutes Status at Discharge Functional status at discharge: independent ambulation Overall status at discharge: patient is back to baseline Mental Status: mental status grossly normal Speech and Movement: speech and movement normal Mood: congruent mood Affect: normal affect Quality:SDOH Health Related Social Needs: Health related social needs house/econ circumstance Exam Narrative Exam Narrative: On the morning of discharge, he appears comfortable his vital signs are documented elsewhere in the chart his chest wall motion is normal. He is not short of breath at rest. His abdomen is soft with no peritoneal signs His urine output is clear He is awake and alert Psych Mental Status: mental status grossly normal Speech and Movement: speech and movement normal Mood: congruent mood Affect: normal affect DS: Data Vitals/I&O Vitals and I&O: Vital Signs Temperature 37.2 C 01/25/25 20:12 Temperature Source Temporal Artery Scan 01/25/25 20:12 Pulse 96 H 01/25/25 20:12 Pulse Rhythm Regular 01/25/25 16:42 Pulse 66 01/25/25 10:16 Respiratory Rate 18 01/25/25 20:12 Respiratory Effort Normal 01/25/25 16:42 Respiratory Depth Normal 01/25/25 16:42 Respiratory Pattern Normal 01/25/25 16:42 Blood Pressure 120/77 01/25/25 20:12 Blood Pressure Mean 91 01/25/25 20:12 Pulse Oximetry 93 01/25/25 20:12 Respiratory End-tidal CO2 33 01/25/25 10:16 Oxygen Delivery Method Room Air 01/25/25 20:12 Oxygen Flow Rate 0 01/25/25 20:12 Pain Level 8 01/26/25 04:35 Comment post op #1 01/25/25 10:33 Intake & Output 01/25/25 01/25/25 01/26/25 11:59 23:59 11:59 Intake Total 1772.667 / 2944.667 1172 / 2944.667 50 / 50 Output Total 2300 / 2300 Balance 1772.667 / 2944.667 1172 / 2944.667 -2250 / -2250 Weight 88.2 kg Intake: IV 1772.667 / 2724.667 952 / 2724.667 50 / 50 Oral 220 / 220 Output: Urine 2300 / 2300 Other: Urine Color [place] Urine Appearance Clear Clear Clear Urine Odor None Comment Kuo draining into bucket - CBI - tolerating well. emptied 1100 from bag 1000 emptied Emesis Description None PFSH All Active Problems Hydronephrosis, right (Acute) Gross hematuria (Acute) Advanced care planning/counseling discussion (Acute) Palliative care patient (Acute) Cancer associated pain (Acute) Metastatic urothelial carcinoma (Acute ~07/2023) 08/02/23 Dr Snowden, Hem/Onc Secondary malignant neoplasm of right lung (Acute) Cavitary lesion of lung (Acute) Rupture of right proximal biceps tendon (Acute 11/30/22) Elevated PSA (Acute) Blindness of left eye (Chronic 03/02/14) Body mass index (BMI) exceeds 25 (Chronic 05/05/15) Essential hypertension (Chronic 02/02/15) GERD (gastroesophageal reflux disease) (Chronic 03/02/14) Hyperlipidemia (Chronic 03/02/14) Baseline LDL 160-180s IFG (impaired fasting glucose) (Chronic 12/28/16) Tobacco use disorder (Chronic) Dermatitis (Chronic) Axilla, probably 2' deod. 11/[place] [facility] [place] Heavy alcohol use (Acute) Erectile dysfunction (Acute) History of colon polyps (Acute) Anemia (Chronic) Medical History Lesion of liver 10/2022 f/u CT: tiny cysts, no further f/u needed COVID (~02/14/22) Bladder cancer (~2021) Tubular adenoma of colon (06/18/14) 2 polyps Tendonitis of wrist, left (11/05/14) Surgical History History of lung biopsy (07/01/23) [facility] [place] (05/28/22) Dr Paniagua Hx of cystoscopy Colonoscopy - MAC (02/26/18) Dr Mariscal, no abnormalities, repeat in 10 years. Family History Mother Aortic aneurysm Father No problems noted. Sister No problems noted. Sister No problems noted. Brother No problems noted. Brother No problems noted. Brother No problems noted. Social History Smoking/Tobacco Use Status: Current-Occasional Tobacco Type: cigarettes Smoking packs per day: 1 Smoking cigarettes per day: 20.0 Years smoked: 40 Smoking pack-years: 40.00 Tobacco: How many years used: 40 Quit status: has quit before Smoking risk assessment performed?: Yes Alcohol Intake: current Alcohol Intake frequency: 3 or more drinks per day Alcohol type: beer and hard liquor Drug use: Never Substance use type: does not use Details: Last ETOH 01/24/2025 Adopted: No Caregiver/Support person: No Foster care: No Housing: house Number of Children: 1 number of grandchildren: 0 Communication Needs: None and Corrective Lenses Education Level: vocational Do you need help understanding health information?: Rarely 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 Pets and animals: No Sexually active: Yes Do you think of yourself as: straight/heterosexual Current gender identity: male What is your relationship status?: never How often do you talk on the phone with friends or family?: once per week How often do you get together with friends or relatives?: twice per week How often do you attend mandaen or latter-day services?: decline to answer Do you belong to any clubs or organized social groups?: no Panel score (0-1 are the most socially isolated patients): 1 What type of physical activity do you participate in: regular exercise and other Details: Active with work on [employer] Duration: 30-45 minutes/day Frequency: daily Gricelda/Confucianism: Anabaptist Special gricelda needs: No Seatbelt use: always Helmet use: Yes Drive intox or ride w/intox marine engine driver: No Water heater temp set <120 deg: Yes Working smoke detector in home: No Fire extinguisher in home: Yes Carbon monox detector in home: No Do you feel safe at home: Yes Do you feel safe in your relationship?: Yes Time Spent with Patient Time Spent with Patient: <45 minutes Time was spent: preparing to see the patient(eg.review tests), obtaining and/or reviewing separately otained hiistory, referring, communicating with other health family day care provider and counseling the patient
--- NOTE | 2025-01-26 07:55 | W.PM.PROGNOT ---
Date of Service Date of service: 01/26/25 Time of Service: 07:55 Assessment and Plan Assessment and plan (1) Metastatic urothelial carcinoma: Status: Acute Assessment and plan: We will discontinue his CBI and discharge him to home with his catheter in place. We will see him later this week for a voiding trial. Subjective Subjective Interval history since last seen: He has remained comfortable with no episodes of clot retention. His pain has been manageable with IV and PO analgesics Exam Narrative Exam Narrative: He appears comfortable His urine output is clear with slow CBI He is awake and alert Objective Last Vital Signs Temp 37.2 C 01/25/25 20:12 Pulse 96 H 01/25/25 20:12 Resp 18 01/25/25 20:12 BP 120/77 01/25/25 20:12 Pulse Ox 93 01/25/25 20:12 PAWSS Have you Been Recently Intoxicated or Drunk Within the Last 30 days?: No Have you Ever Experienced Previous Episodes of Alcohol Withdrawal?: No Have you ever Experienced Withdrawal Seizures?: No Have you ever Experienced Delirium Tremens(DT)s?: No Have you ever undergone Alcohol Rehabilitation Treatment (i.e, inpt ot outpatient treatment programs)?: No Have you ever Experienced Blackouts?: No Have you ever Combined Alcohol with other Downers within the last 90 days?: No Have you ever Combined Alcohol with any other Substance of Abuse during the last 90 days?: No Positive Blood Alcohol level on Presentation? [PCS.BAL]: No Evidence of Increased Autonomic Activity (i.e. HR>120, tremor, sweating, agitation, nausea)?: No Result: 0 Time Spent with Patient Time Spent with Patient: <25 minutes Time was spent: preparing to see the patient(eg.review tests), obtaining and/or reviewing separately otained hiistory, referring, communicating with other health child care teacher, counseling the patient and care coordination
[2025-01-26 08:06] VITALS: BP 133/84; PULSE 86; RESP 16; TEMP 36.9; O2SAT 91
--- NOTE | 2025-01-26 11:29 | PDOC.CMPRO ---
Date of service: 01/26/25 Time of Service: 11:29 Care Management Progress Note Progress Note Text Progress Note Text: Duarte was admitted on 01/25/25 for a Cysto/Turp for metastatic bladder cancer. Overnight he had a CBI running and his pain was well controlled with oral analgesics. The CBI was discontinued this morning and the greene was left in place. Duarte was discharged home with family this morning and will follow up with Dr. Mabry outpatient. Discharge Potential Discharge Needs: Surgical F/U Appt Anticipated Barriers to Discharge: None Identified Patient/Family Education Needs: Review discharge instructions, discuss Ask Me Three Transportation: Private vehicle Plan: Duarte was discharged home with no new services. He will follow up with Urology and his plan of care and transport with family. Social Determinants of Health Screening Social Determinants of health last assessed in clinic: 01/26/25 Will the Patient Participate in the Screening?: Yes Do you worry about having a steady place to live?: no Problems where you live: no known problems In the past 12 months, have you had to go without electric, gas, oil or water in your home?: no 1. Within the past 12 months, we worried whether our food would run out before we got money to buy more.: Never true 2. Within the past 12 months, the food we bought just didn't last and we didn't have money to get more.: Never true Has lack of transportation kept you from medical appointments or from doing things needed for daily living?: no Has anyone in your life made you feel unsafe or unsupported?: no How hard is it for you to pay for the very basics like food, housing, medical care, and heating? Would you say it is:: Not hard at all Do you want help finding or keeping work or a job?: I do not need or want help If for any reason you need help with day-to-day activities such as bathing, preparing meals, shopping, managing finances, etc., do you get the help you need?: I don’t need any help How often do you feel lonely or isolated from those around you?: Never Do you speak a language other than [place] at home?: No
== END 2025-01-26 10:03 | disposition home or self-care (01) ==
LOC: MS 01-26 03:27 → PDS 01-26 03:28 → MS 01-26 03:28
PROVIDERS: Admitting Provider Urology; Responsible Provider Urology; Visit Provider Urology
PROC: 0TBB8ZZ Excision of Bladder, Via Natural or Artificial Opening Endoscopic (ICD-10-PCS; CPT 52240; principal; 2025-01-25 07:30)
DX: C67.8 Malignant neoplasm of overlapping sites of bladder (principal); R31.0 Gross hematuria; N13.30 Unspecified hydronephrosis; G89.3 Neoplasm related pain (acute) (chronic); C78.01 Secondary malignant neoplasm of right lung; I10 Essential (primary) hypertension; K21.9 Gastro-esophageal reflux disease without esophagitis; D64.9 Anemia, unspecified; E78.5 Hyperlipidemia, unspecified; R73.01 Impaired fasting glucose; F17.210 Nicotine dependence, cigarettes, uncomplicated; F10.90 Alcohol use, unspecified, uncomplicated; Z79.899 Other long term (current) drug therapy
CPT/HCPCS: 52240; 88307; G0378; J0131; J0690; J1100; J1171; J2003; J2405; J2704; J3010

== ENCOUNTER 2025-02-09 01:46 | Outpatient (CLI) | payer BC, SELFPAY ==
[2025-02-09 08:09] LABS: Abs Immature Grans 0.04 10^3/uL (0.0-0.06); HCT 36.4 % (40.0-50.0); HGB 12.7 g/dL (13.5-17.5); Immature Grans % 0.3 %; MCH 32.1 pg (27.0-33.0); MCHC 34.9 % (32.0-36.0); MCV 92 fL (80-95); MPV 9.2 fL (8.0-11.0); Platelet Count 234 10^3/uL (130-400); RBC 3.96 10^6/uL (4.36-5.78); RDW 12.8 % (11.8-14.1); RDW-SD 43.0 fL; WBC 11.70 10^3/uL (4.4-10.8)
[2025-02-09 08:25] LABS: ALT 23 U/L (10-49); AST 22 U/L (<34); Albumin 4.5 g/dL (3.4-5.0); Alkaline Phosphatase 65 U/L (46-116); Anion Gap 8.8 mmol/L (3-11); BUN 16 mg/dL (9-23); Bilirubin, Total 0.40 mg/dL (0.2-1.2); CO2 25.2 mmol/L (20.0-31.0); Calcium 9.3 mg/dL (8.3-10.6); Chloride 106 mmol/L (98-107); Glucose 111 mg/dL (74-106); Potassium 4.2 mmol/L (3.5-5.1); Sodium 140 mmol/L (136-145); Total Protein 6.8 g/dL (5.7-8.2)
[2025-02-09 08:28] LABS: TSH 1.36 uIU/mL (0.55-4.78)
[2025-02-09 09:02] LABS: RBC Morphology Normal
== END 2025-02-09 01:47 | disposition home or self-care (01) ==
LOC: LBO 01:49
PROVIDERS: Visit Provider Nurse Practitioner
DX: C79.10 Secondary malignant neoplasm of unspecified urinary organs (principal)
CPT/HCPCS: 36415; 80053; 84439; 84443; 85025

== ENCOUNTER 2025-03-02 01:34 | Outpatient (CLI) | payer BC, SELFPAY ==
[2025-03-02 08:40] LABS: Abs Immature Grans 0.02 10^3/uL (0.0-0.06); HCT 35.0 % (40.0-50.0); HGB 12.0 g/dL (13.5-17.5); Immature Grans % 0.2 %; MCH 31.4 pg (27.0-33.0); MCHC 34.3 % (32.0-36.0); MCV 92 fL (80-95); MPV 9.5 fL (8.0-11.0); Platelet Count 213 10^3/uL (130-400); RBC 3.82 10^6/uL (4.36-5.78); RDW 12.8 % (11.8-14.1); RDW-SD 42.5 fL; WBC 9.03 10^3/uL (4.4-10.8)
[2025-03-02 09:01] LABS: ALT 34 U/L (10-49); AST 27 U/L (<34); Albumin 4.4 g/dL (3.2-5.0); Alkaline Phosphatase 71 U/L (46-116); Anion Gap 8.4 mmol/L (3-11); BUN 20 mg/dL (9-23); Bilirubin, Total 0.5 mg/dL (0.2-1.2); CO2 24.6 mmol/L (20.0-31.0); Calcium 9.5 mg/dL (8.3-10.6); Chloride 107 mmol/L (98-107); Cholesterol 174 mg/dL (<200); Glucose 111 mg/dL (74-106); HDL Cholesterol 48 mg/dL (>40); Potassium 4.1 mmol/L (3.5-5.1); Sodium 140 mmol/L (136-145); Total Protein 6.9 g/dL (5.7-8.2)
[2025-03-02 09:03] LABS: TSH 1.67 uIU/mL (0.55-4.78)
== END 2025-03-02 01:35 | disposition home or self-care (01) ==
LOC: LBO 01:34
PROVIDERS: Visit Provider Nurse Practitioner
DX: E78.5 Hyperlipidemia, unspecified (principal); C79.10 Secondary malignant neoplasm of unspecified urinary organs
CPT/HCPCS: 36415; 80053; 80061; 84439; 84443; 85025